=== PATIENT | female | born 1980 | race Caucasian/White ===

== ENCOUNTER → 2016-08-11 | Outpatient (CLI) | payer OTHER ==
--- NOTE | 2016-08-11 15:25 | REP ---
ULTRASOUND RIGHT BREAST: CLINICAL HISTORY: Pimple with bloody discharge and tenderness. Real-time sonographic evaluation of the right retroareolar region is performed including at the 10-o'clock position to 11-o'clock position where there is tenderness. Dense fibroglandular tissue is seen. No cystis or solid nodule is seen. IMPRESSION: No cystic or solid nodule in the right retroareolar region and in the region of tenderness at the 10-o'clock position to 11-o'clock position. Clinical correlation and followup recommended. ACR 2 benign. Signed by Silverio Okeefe MD 08/12/2016 04:45 P
== END ==
LOC: M RAD 12:57
PROVIDERS: ATTEND Family Medicine
DX: N64.52 Nipple discharge (principal)

== ENCOUNTER 2017-01-17 10:08 | Emergency (ER) | payer OTHER ==
[~2017-01-17] VITALS: Ht 167.6 cm; Wt 90.1 kg
[2017-01-17] MEDS ORDERED: SING10TA32 PO (10:31)
[2017-01-17] MEDS ORDERED: CLON0.5T PO (10:31)
[2017-01-17] MEDS ORDERED: ZOLO50TA PO (10:31)
[2017-01-17] MEDS ORDERED: PROAAER10 INH (10:31)
[2017-01-17] MEDS ORDERED: ALBU83IN INH (10:31)
[2017-01-17] MEDS ORDERED: ONDANSETRON 4MG/2ML VIAL (J2405) IV ONE (11:00)
[2017-01-17] MEDS ORDERED: NS 1,000 ML IV ONE (11:00)
[2017-01-17] MEDS ORDERED: MORPHINE 2 MG/ML 1ML SYRINGE IV ONE (11:00)
[2017-01-17 11:18] LABS: BASO % 0.2 % (0.0-1.0); EOS # 0.1 10^3/uL (0.0-0.50); EOS % 0.4 % (0.0-3.0); IMMATURE GRANULOCYTE % 0.2 % (0-0); LYMPH # 4.3 10^3/uL (1.5-4.5); LYMPH % 33.1 % (24.0-44.0); MEAN CORPUSCULAR VOLUME 84.9 fl (80.0-96.0); MONO # 0.5 10^3/uL (0.0-0.8); MONO % 3.8 % (0.0-5.0); NEUTROPHILS # 8.1 10^3/uL (1.8-7.7); NEUTROPHILS % 62.3 % (36.0-66.0); PLATELET COUNT, AUTOMATED 313 10^3/uL (150-450); RED CELL DISTRIBUTION WIDTH 13.2 % (11.5-14.5); WHITE BLOOD COUNT 12.9 10^3/uL (4.0-10.0)
[2017-01-17 11:19] LABS: ADD MANUAL DIFFER NO; DIFF SLIDE NUMBER 177
[2017-01-17 11:53] LABS: ALBUMIN 3.8 GM/DL (3.2-5.2); ALBUMIN/GLOBULIN RATIO 0.81 (1.00-1.93); ALKALINE PHOSPHATASE 149 U/L (45-117); ALT/SGPT 32 U/L (12-78); ANION GAP 9 MEQ/L (8-16); AST/SGOT 20 U/L (15-37); BILIRUBIN,DIRECT < 0.1 MG/DL (0.0-0.2); BILIRUBIN,TOTAL 0.2 MG/DL (0.2-1.0); BLOOD UREA NITROGEN 8 MG/DL (7-18); CALCIUM LEVEL 9.1 MG/DL (8.5-10.1); CARBON DIOXIDE LEVEL 25 MEQ/L (21-32); CHLORIDE LEVEL 107 MEQ/L (98-107); CREATININE FOR GFR 0.82 MG/DL (0.55-1.02); GLOMERULAR FILTRATION RATE > 60.0 (>60); GLUCOSE, FASTING 110 MG/DL (70-105); POTASSIUM SERUM 3.6 MEQ/L (3.5-5.1); SODIUM LEVEL 141 MEQ/L (136-145); TOTAL PROTEIN 8.5 GM/DL (6.4-8.2)
[2017-01-17 12:26] LABS: CONTROL LINE UCG INT CTR LINE PRESENT
[2017-01-17] MEDS ORDERED: ISOVUE-370 76% 100ML VIAL (Q9967) As Ordered ONE (12:35)
--- NOTE | 2017-01-17 13:03 | REP ---
CT of the abdomen and pelvis with IV contrast, without bowel contrast: The appendix has a normal appearance. There are surgical clips in the gallbladder fossa. There is a 2.7 cm left adnexal cyst. The uterus and right adnexa are unremarkable. The bladder is unremarkable. There is no free fluid in the pelvis. The visualized lung morrison are unremarkable. The hepatic parenchyma, pancreas, spleen, adrenals, kidneys and abdominal aorta are unremarkable. There is no hydronephrosis. No bowel distension or obstruction. Impression: 2.7 cm left adnexal cyst. Right adnexa is unremarkable. The appendix has a normal appearance. There is a cholecystectomy. The bladder is unremarkable. There is no bowel obstruction. No ascites or adenopathy. Signed by Silverio Bush MD 01/17/2017 12:55 P
[2017-01-17 13:19] VITALS: BP 116/74
[2017-01-18] MEDS ORDERED: IBUP-1114 PO (21:09)
== END 2017-01-17 13:20 | disposition home or self-care (01) ==
LOC: M ED 10:08
DX: R10.31 Right lower quadrant pain (principal); R19.7 Diarrhea, unspecified; Z79.899 Other long term (current) drug therapy
CPT/HCPCS: 74177; 80048; 80076; 81001; 83690; 84703; 85025; 96361; 96374; 96375; 99283; J2405; Q9967

== ENCOUNTER 2017-01-18 20:48 | Emergency (ER) | payer OTHER ==
[~2017-01-18] VITALS: Ht 165.1 cm; Wt 87.3 kg
[~2017-01-18 20:48] MED LIST: ALBU83IN INH; CLON0.5T PO; PROAAER10 INH; SING10TA32 PO; ZOLO50TA PO
[2017-01-18] MEDS ORDERED: IBUP-1114 PO (21:09)
[2017-01-19] MEDS ORDERED: NS 1,000 ML IV ONE (00:15)
[2017-01-19] MEDS ORDERED: ONDANSETRON 4MG/2ML VIAL (J2405) IV ONE (00:15)
[2017-01-19] MEDS ORDERED: MORPHINE 4 MG/ML 1ML SYRINGE IV PRN (00:15)
[2017-01-19 00:52] LABS: MEAN CORPUSCULAR HEMOGLOBIN 28.5 pg (27.0-33.0); MEAN CORPUSCULAR HGB CONC 33.1 g/dl (32.0-36.5); MEAN CORPUSCULAR VOLUME 86.1 fl (80.0-96.0); PLATELET COUNT, AUTOMATED 281 10^3/uL (150-450); RED CELL DISTRIBUTION WIDTH 13.2 % (11.5-14.5)
[2017-01-19 01:18] LABS: ADD MANUAL DIFFER YES; DIFF SLIDE NUMBER 91
[2017-01-19 01:21] LABS: ALBUMIN 3.7 GM/DL (3.2-5.2); ALBUMIN/GLOBULIN RATIO 0.95 (1.00-1.93); ALKALINE PHOSPHATASE 137 U/L (45-117); ALT/SGPT 26 U/L (12-78); AMYLASE 53 U/L (25-115); ANION GAP 6 MEQ/L (8-16); AST/SGOT 11 U/L (15-37); BILIRUBIN,DIRECT < 0.1 MG/DL (0.0-0.2); BILIRUBIN,TOTAL 0.3 MG/DL (0.2-1.0); BLOOD UREA NITROGEN 8 MG/DL (7-18); CALCIUM LEVEL 8.7 MG/DL (8.5-10.1); CARBON DIOXIDE LEVEL 28 MEQ/L (21-32); CHLORIDE LEVEL 109 MEQ/L (98-107); CREATININE FOR GFR 0.76 MG/DL (0.55-1.02); GLOMERULAR FILTRATION RATE > 60.0 (>60); GLUCOSE, FASTING 80 MG/DL (70-105); POTASSIUM SERUM 3.8 MEQ/L (3.5-5.1); SODIUM LEVEL 143 MEQ/L (136-145); TOTAL PROTEIN 7.6 GM/DL (6.4-8.2)
[2017-01-19 01:33] LABS: EOSINOPHILS 1 % (0-5)
[2017-01-19] MEDS ORDERED: ZOFR4TAB3 PO (01:53)
[2017-01-19] MEDS ORDERED: BENT20TA PO (01:53)
[2017-01-19 02:01] VITALS: BP 136/86
== END 2017-01-19 02:04 | disposition home or self-care (01) ==
LOC: M ED 20:48
DX: R10.9 Unspecified abdominal pain (principal); R19.7 Diarrhea, unspecified; J45.909 Unspecified asthma, uncomplicated; F41.9 Anxiety disorder, unspecified; F33.9 Major depressive disorder, recurrent, unspecified; Z79.899 Other long term (current) drug therapy; Z88.5 Allergy status to narcotic agent; Z87.42 Personal history of other diseases of the female genital tract
CPT/HCPCS: 80048; 80076; 81001; 82150; 83690; 85025; 96374; 96375; 99283; J2405

== ENCOUNTER → 2017-01-19 | Outpatient (REF) | payer OTHER ==
[~2017-01-19] MED LIST changes: +BENT20TA PO; +IBUP-1114 PO; +KETO10TAB PO; +ZOFR4TAB3 PO
== END ==
LOC: M LAB REF 13:13
PROVIDERS: ATTEND Physician Assistant Medical
DX: R19.7 Diarrhea, unspecified (principal)

== ENCOUNTER 2017-01-21 15:58 | Emergency (ER) | payer OTHER ==
[~2017-01-21] VITALS: Ht 165.1 cm; Wt 40.1 kg
[~2017-01-21 15:58] MED LIST changes: -KETO10TAB PO
[2017-01-21] MEDS ORDERED: ONDANSETRON 4MG/2ML VIAL (J2405) IV ONE (18:30)
[2017-01-21] MEDS ORDERED: KETOROLAC 30 MG/ML VIAL (J1885) IV ONE (18:30)
[2017-01-21 18:50] LABS: MEAN CORPUSCULAR HEMOGLOBIN 28.4 pg (27.0-33.0); MEAN CORPUSCULAR HGB CONC 33.2 g/dl (32.0-36.5); MEAN CORPUSCULAR VOLUME 85.5 fl (80.0-96.0); PLATELET COUNT, AUTOMATED 290 10^3/uL (150-450); RED CELL DISTRIBUTION WIDTH 13.2 % (11.5-14.5); WHITE BLOOD COUNT 10.8 10^3/uL (4.0-10.0)
[2017-01-21 18:52] LABS: CONTROL LINE UCG INT CTR LINE PRESENT
[2017-01-21 18:57] LABS: ADD MANUAL DIFFER YES; DIFF SLIDE NUMBER 305
[2017-01-21 19:18] LABS: ALBUMIN 3.9 GM/DL (3.2-5.2); ALBUMIN/GLOBULIN RATIO 1.03 (1.00-1.93); ALKALINE PHOSPHATASE 134 U/L (45-117); ALT/SGPT 32 U/L (12-78); AMYLASE 49 U/L (25-115); ANION GAP 9 MEQ/L (8-16); AST/SGOT 17 U/L (15-37); BILIRUBIN,DIRECT < 0.1 MG/DL (0.0-0.2); BILIRUBIN,TOTAL 0.3 MG/DL (0.2-1.0); BLOOD UREA NITROGEN 8 MG/DL (7-18); CALCIUM LEVEL 8.8 MG/DL (8.5-10.1); CARBON DIOXIDE LEVEL 24 MEQ/L (21-32); CHLORIDE LEVEL 109 MEQ/L (98-107); CREATININE FOR GFR 0.67 MG/DL (0.55-1.02); GLOMERULAR FILTRATION RATE > 60.0 (>60); GLUCOSE, FASTING 73 MG/DL (70-105); POTASSIUM SERUM 3.9 MEQ/L (3.5-5.1); SODIUM LEVEL 142 MEQ/L (136-145); TOTAL PROTEIN 7.7 GM/DL (6.4-8.2)
--- NOTE | 2017-01-21 19:20 | REPUSA ---
Clinical history: Pain. Findings: Real-time transabdominal and transvaginal ultrasound images of the pelvis were obtained. An anteverted uterus is noted, measuring 7.3 x 3.3 x 3.5 cm. The uterus demonstrates normal echotexture and echogenicity. The endometrial stripe measures 7 mm and is within normal limits. The right ovary measures 1.4 x 1.7 x 2.6 cm. There is a simple right ovarian cyst measuring 1.6 x 1.6 x 1.8 cm. The l eft ovary measures 3.3 x 1.7 x 2.9 cm. No adnexal masses are seen. Color Doppler flow is seen within both ovaries. There is no evidence of free fluid. Impression: Unremarkable ultrasound examination of the pelvis. Small simple right ovarian cyst.
[2017-01-21] MEDS ORDERED: KETO10TAB PO (19:44)
[2017-01-21 19:54] VITALS: BP 135/83
[2017-01-21 20:29] LABS: ERYTHROCYTE SEDIMENTATION RATE 29 mm/hr (0-20)
== END 2017-01-21 19:55 | disposition home or self-care (01) ==
LOC: EDBD 15:58 → M ED 15:58
DX: N83.201 Unspecified ovarian cyst, right side (principal); R11.10 Vomiting, unspecified; R19.7 Diarrhea, unspecified; J45.909 Unspecified asthma, uncomplicated; F41.9 Anxiety disorder, unspecified; F33.9 Major depressive disorder, recurrent, unspecified; D25.1 Intramural leiomyoma of uterus; Z79.899 Other long term (current) drug therapy; Z88.5 Allergy status to narcotic agent

== ENCOUNTER 2017-04-04 17:49 | Emergency (ER) | payer OTHER ==
[~2017-04-04] VITALS: Ht 165.1 cm; Wt 86.4 kg
[~2017-04-04 17:49] MED LIST changes: +KETO10TAB PO
--- NOTE | 2017-04-04 18:49 | REP ---
Right ankle series: Four views. History: Injury in a fall. Findings: Four views of the right ankle demonstrate an accessory ossicle adjacent to the lateral malleolus. There is minimal medial malleolar spurring. Achilles and plantar calcaneal spurring is noted. There is lateral soft tissue swelling. No fracture is seen. Impression: No fracture noted. Old accessory ossicle adjacent to the distal fibula. Heel spurs. Signed by Al Dickson MD 04/04/2017 09:43 P
[2017-04-04] MEDS ORDERED: IBUP-1022 PO (19:30)
[2017-04-04 19:58] VITALS: BP 148/89
== END 2017-04-04 20:12 | disposition home or self-care (01) ==
LOC: M ED 19:49
DX: S93.401A Sprain of unspecified ligament of right ankle, initial encounter (principal); X50.1XXA Overexertion from prolonged static or awkward postures, initial encounter; Y92.89 Other specified places as the place of occurrence of the external cause; Y93.01 Activity, walking, marching and hiking; Y99.0 Civilian activity done for income or pay

== ENCOUNTER → 2017-09-08 | Outpatient (CLI) | payer OTHER ==
[~2017-09-08] MED LIST changes: -ALBU83IN INH; -BENT20TA PO; -CLON0.5T PO; -IBUP-1114 PO; +ISOVUE-370 76% 100ML VIAL (Q9967) As Ordered; -KETO10TAB PO; -PROAAER10 INH; -SING10TA32 PO; -ZOFR4TAB3 PO; -ZOLO50TA PO
== END ==
LOC: M RADPRO 11:04
DX: N97.1 Female infertility of tubal origin (principal)
CPT/HCPCS: 58340

== ENCOUNTER 2018-03-05 14:05 | Emergency (ER) | payer OTHER ==
[2018-03-05 15:13] LABS: BASO % 0.2 % (0.0-1.0); EOS # 0.1 10^3/uL (0.0-0.50); EOS % 0.6 % (0.0-3.0); HEMOGLOBIN 11.3 g/dl (12.0-15.5); IMMATURE GRANULOCYTE % 0.4 % (0-3.0); LYMPH # 3.5 10^3/uL (1.5-4.5); LYMPH % 26.5 % (24.0-44.0); MEAN CORPUSCULAR HEMOGLOBIN 28.4 pg (27.0-33.0); MEAN CORPUSCULAR HGB CONC 33.2 g/dl (32.0-36.5); MEAN CORPUSCULAR VOLUME 85.4 fl (80.0-96.0); MONO # 0.6 10^3/uL (0.0-0.8); MONO % 4.4 % (0.0-5.0); NEUTROPHILS % 67.9 % (36.0-66.0); PLATELET COUNT, AUTOMATED 270 10^3/uL (150-450); RED BLOOD COUNT 3.98 10^6/uL (4.00-5.40); RED CELL DISTRIBUTION WIDTH 12.6 % (11.5-14.5); WHITE BLOOD COUNT 13.2 10^3/uL (4.0-10.0)
[2018-03-05] MEDS: ONDANSETRON 4MG/2ML VIAL (J2405) IV ×2 (15:24→16:21)
[2018-03-05] MEDS: NS 1,000 ML IV (15:26)
[2018-03-05 15:30] LABS: ALBUMIN 3.1 GM/DL (3.2-5.2); ALBUMIN/GLOBULIN RATIO 0.82 (1.00-1.93); ALKALINE PHOSPHATASE 119 U/L (45-117); ALT/SGPT 21 U/L (12-78); ANION GAP 10 MEQ/L (8-16); AST/SGOT 13 U/L (7-37); BILIRUBIN,DIRECT < 0.1 MG/DL (0.0-0.2); BILIRUBIN,TOTAL 0.3 MG/DL (0.2-1.0); BLOOD UREA NITROGEN 5 MG/DL (7-18); CALCIUM LEVEL 8.9 MG/DL (8.5-10.1); CARBON DIOXIDE LEVEL 23 MEQ/L (21-32); CHLORIDE LEVEL 107 MEQ/L (98-107); CREATININE FOR GFR 0.51 MG/DL (0.55-1.30); GLOMERULAR FILTRATION RATE > 60.0 (>60); GLUCOSE, FASTING 74 MG/DL (70-100); LIPASE 121 U/L (73-393); POTASSIUM SERUM 3.7 MEQ/L (3.5-5.1); SODIUM LEVEL 140 MEQ/L (136-145); TOTAL PROTEIN 6.9 GM/DL (6.4-8.2)
[2018-03-05 15:35] LABS: INFLUENZA A AMPLIFICATION NEGATIVE (NEGATIVE); INFLUENZA B AMPLIFICATION NEGATIVE (NEGATIVE)
[2018-03-05 15:50] LABS: KETONE, URINE AUTO RFX 1+ mg/dL (NEGATIVE); LEUKOCYTE ESTERASE UR AUTO RFX NEGATIVE (NEGATIVE); MUCUS, URINE RFX SMALL (NEGATIVE); NITRITE, URINE AUTO RFX NEGATIVE (NEGATIVE); RBC, URINE AUTO RFX 1 /HPF (0-3); SPECIFIC GRAVITY UR AUTO RFX 1.013 (1.002-1.035); SQUAM EPITHELIAL CELL UR AURFX 0 /HPF (0-6); WBC, URINE AUTO RFX 2 /HPF (0-3)
== END 2018-03-05 17:50 | disposition home or self-care (01) ==
LOC: M ED 14:05
DX: O21.9 Vomiting of pregnancy, unspecified (principal); O99.89 Other specified diseases and conditions complicating pregnancy, childbirth and the puerperium; R52 Pain, unspecified; O99.512 Diseases of the respiratory system complicating pregnancy, second trimester; J45.909 Unspecified asthma, uncomplicated; Z79.899 Other long term (current) drug therapy; Z88.5 Allergy status to narcotic agent; Z3A.14 14 weeks gestation of pregnancy
CPT/HCPCS: J2405

== ENCOUNTER 2018-05-15 13:37 | Outpatient (CLI) | payer OTHER ==
[~2018-05-15] VITALS: Ht 165.1 cm; Wt 99.7 kg
[~2018-05-15 13:37] MED LIST changes: +ACET500T15 PO; +ALBU83IN INH; +BENT20TA PO; +CLON0.5T8 PO; +IBUP-1022 PO; +IBUP-1114 PO; -ISOVUE-370 76% 100ML VIAL (Q9967) As Ordered; +KETO10TAB PO; +PRENTAB55 PO; +PROAAER10 INH; +SING10TA32 PO; +ZOFR4TAB14 PO; +ZOLO50TA PO
[2018-05-15 14:02] VITALS: BP 124/73
[2018-05-15 15:03] VITALS: BP 119/71
== END 2018-05-15 15:38 | disposition home or self-care (01) ==
LOC: M LDO 13:37
PROVIDERS: ATTEND Obstetrics & Gynecology
DX: O26.892 Other specified pregnancy related conditions, second trimester (principal); Z3A.24 24 weeks gestation of pregnancy; R10.9 Unspecified abdominal pain; E86.0 Dehydration; O99.282 Endocrine, nutritional and metabolic diseases complicating pregnancy, second trimester
CPT/HCPCS: G0378; G0463

== ENCOUNTER 2018-08-14 08:41 | Inpatient (IN) | payer OTHER ==
[~2018-08-14] VITALS: Ht 165.1 cm; Wt 104.8 kg
[~2018-08-14 08:41] MED LIST changes: +BICITRA 30ML SOLN UDC PO ONE; +DHA100CA PO; +LR 1,000 ML IV ONE; +LR 1,000 ML IV SCH; +ZOLO25TA PO
[2018-08-14] MEDS: PRENATAL VITAMINS CHEWABLE TABLET PO SCH (09:00)
[2018-08-14 09:14] VITALS: BP 121/69
[2018-08-14] MEDS ORDERED: LR 1,000 ML IV ONE (09:15)
[2018-08-14] MEDS ORDERED: BICITRA 30ML SOLN UDC PO ONE (09:15)
[2018-08-14] MEDS ORDERED: ZOLOFT PO (09:20)
[2018-08-14] MEDS ORDERED: CLAR5TAB11 PO (09:20)
[2018-08-14 09:54] LABS: HEMATOCRIT 33.5 % (36.0-47.0); HEMOGLOBIN 10.9 g/dl (12.0-15.5); MEAN CORPUSCULAR HEMOGLOBIN 27.7 pg (27.0-33.0); MEAN CORPUSCULAR HGB CONC 32.5 g/dl (32.0-36.5); MEAN CORPUSCULAR VOLUME 85.2 fl (80.0-96.0); PLATELET COUNT, AUTOMATED 254 10^3/uL (150-450); RED BLOOD COUNT 3.93 10^6/uL (4.00-5.40)
[2018-08-14] MEDS ORDERED: ONDANSETRON 4MG/2ML VIAL (J2405) As Ordered ONE (11:52)
[2018-08-14] MEDS ORDERED: fentaNYL 100 MCG/2 ML INJECTION (J3010) As Ordered ONE (11:52)
[2018-08-14] MEDS ORDERED: MORPHINE PRES-FREE INJ 10 MG/10 ML VIAL (J2274) As Ordered ONE (11:52)
[2018-08-14] MEDS ORDERED: OXYTOCIN INJ 10 UNITS/ML VIAL (J2590) As Ordered ONE (11:52)
[2018-08-14] MEDS ORDERED: dexameTHASONE 4 MG/ML 1ML VIAL (J1100) As Ordered ONE (11:52)
[2018-08-14] MEDS ORDERED: NALBUPHINE HCL 10 MG/ML AMP (J2300) IV PRN ×2 (11:59→13:45)
[2018-08-14] MEDS ORDERED: METOCLOPRAMIDE INJ 10MG/2ML VIAL (J2765) IV PRN (11:59)
[2018-08-14] MEDS ORDERED: NALOXONE INJ 0.4 MG/1 ML VIAL (J2310) IV PRN ×2 (11:59)
[2018-08-14] MEDS ORDERED: ONDANSETRON 4MG/2ML VIAL (J2405) IV PRN ×3 (11:59→14:00)
[2018-08-14] MEDS ORDERED: KETOROLAC 60 MG/2 ML VIAL (J1885) As Ordered ONE (12:30)
[2018-08-14] MEDS ORDERED: PHENYLephrine HCL 500 MCG/5 ML (100MCG/ML) SYRINGE (J2370) As Ordered ONE (12:30)
[2018-08-14] MEDS ORDERED: MEPERIDINE INJ 25 MG/ML VIAL (J2175) IV PRN (13:45)
[2018-08-14] MEDS ORDERED: fentaNYL 100 MCG/2 ML INJECTION (J3010) IV PRN (13:45)
[2018-08-14] MEDS ORDERED: OXYTOCIN DRIP 30 UNITS in APPROPRIATE DILUENT 1 EA IV SCH (14:00)
[2018-08-14] MEDS ORDERED: RHOGAM 300 MCG (1500 IU) INJ (J2790) IM SCH (14:00)
[2018-08-14] MEDS ORDERED: MEASLES,MUMPS,RUBELLA VACCINE INJ (MMR-II) (90707) SC SCH (14:00)
[2018-08-14] MEDS ORDERED: PERCOCET 5MG/325MG TAB PO PRN (14:00)
[2018-08-14] MEDS: LR 1,000 ML IV SCH ×2 (14:37→22:25)
[2018-08-14 14:55] VITALS: BP 144/68
[2018-08-14 15:25] VITALS: BP 130/70
[2018-08-14 16:25] VITALS: BP 116/63
[2018-08-14] MEDS ORDERED: ALBUTEROL 90 MCG/ACT 8GM HFA INHALER INH PRN (16:45)
[2018-08-14 17:42] VITALS: BP 119/65
[2018-08-14] MEDS: diphenhydrAMINE INJ 50MG/ML VIAL (J1200) IV PRN (18:57)
[2018-08-14] MEDS: DOCUSATE SODIUM 100 MG CAP PO SCH (20:03)
[2018-08-14] MEDS: KETOROLAC 30 MG/ML VIAL (J1885) IV SCH (20:04)
[2018-08-14] MEDS: MONTELUKAST 10 MG TAB PO SCH (20:36)
[2018-08-14] MEDS: SERTRALINE HCL 25 MG TABLET PO SCH (20:36)
[2018-08-14 22:00] VITALS: BP 123/58
[2018-08-15] VITALS (7 sets, daily range): BP systolic 110–133; BP diastolic 59–74
[2018-08-15] MEDS: KETOROLAC 30 MG/ML VIAL (J1885) IV SCH ×2 (01:37→08:06)
[2018-08-15] MEDS: diphenhydrAMINE INJ 50MG/ML VIAL (J1200) IV PRN (01:46)
[2018-08-15] MEDS: LR 1,000 ML IV SCH ×3 (06:00→22:00)
[2018-08-15 07:24] LABS: HEMATOCRIT 25.1 % (36.0-47.0); MEAN CORPUSCULAR HEMOGLOBIN 27.3 pg (27.0-33.0); MEAN CORPUSCULAR HGB CONC 31.9 g/dl (32.0-36.5); MEAN CORPUSCULAR VOLUME 85.7 fl (80.0-96.0); PLATELET COUNT, AUTOMATED 198 10^3/uL (150-450); RED BLOOD COUNT 2.93 10^6/uL (4.00-5.40); WHITE BLOOD COUNT 14.6 10^3/uL (4.0-10.0)
[2018-08-15] MEDS: PRENATAL VITAMINS CHEWABLE TABLET PO SCH (08:06)
[2018-08-15] MEDS: DOCUSATE SODIUM 100 MG CAP PO SCH ×2 (08:06→20:20)
--- NOTE | 2018-08-15 08:41 | IPNPDOC ---
Progress Note Date of Service: Aug 15, 2018 Day#: 1 Progress Note PP/POD 1 SUBJECT: Katya is a 38yo [id number] s/p uncomplicated PLTCS on 08/14/18 for hx of myomectomy, doing well /post-op day # 1. She has been ambulating, gray in place draining clear yellow urine, and tolerating regular diet. Breast feeding without issue. Reports lochia is minimal. No f/c/n/v/CP/SOB. No lig htheadedness/dizziness. OBJECTIVE: VITAL SIGNS: Within normal limits, afebrile. Alert and oriented times three. Abdomen: Fundus firm at U-2. Soft, appropriately TTP with no rebound/guarding. Bandage removed, pfannensteil incision clean/dry/intact with steri strips overlying. No erythema/induration/drainage. Labs: pre-op H/H: 10.9/33.5 post-op H/H: 8/25.1 ASSESSMENT: Katya is a 38yo [id number] s/p uncomplicated PLTCS on 08/14/18 for hx of myomectomy, doing well /post-op day # 1. Vitals within normal limits, afebrile, hemodynamically stable with no evidence of infection. PLAN: 1. Routine /post-op care 2. Percocet and toradol (then motrin) for pain 3. Encourage breast feeding and ambulation, use of IS. Ok to shower. 4. Regular diet 5. Gray out this morning with 6hr due to void 6. Saline nasal rinse for congestion 7. Anticipate discharge tomorrow if meeting all milestones Dr. Arleen Murphy MD VS, I&O, [facility] Vital Signs/I&O Vital Signs Date Time Temp Pulse Resp B/P (MAP) Pulse Ox O2 Delivery O2 Flow Rate FiO2 08/15/18 06:00 97.8 82 17 112/59 (76) 08/14/18 17:42 97 I&O- Last 24 Hours up to 6 AM 08/15/18 06:00 Intake Total 1600 ml Output Total 1960 ml Balance -360 ml Laboratory Data 24H LABS Laboratory Tests 2 08/14/18 09:33: Nucleated Red Blood Cells % (auto) 0.0, Syphilis Serology NONREACTIVE 08/15/18 06:48: Nucleated Red Blood Cells % (auto) 0.0 CBC/BMP Laboratory Tests 08/14/18 09:33 Red Blood Count 3.93 L, Mean Corpuscular Volume 85.2, Mean Corpuscular Hemoglobin 27.7, Mean Corpuscular Hemoglobin Concent 32.5, Red Cell Distribution Width 15.9 H 08/15/18 06:48 Red Blood Count 2.93 L, Mean Corpuscular Volume 85.7, Mean Corpuscular Hemoglobin 27.3, Mean Corpuscular Hemoglobin Concent 31.9 L, Red Cell Distribution Width 16.1 H Arleen Murphy MD Aug 15, 2018 08:41
[2018-08-15] MEDS ORDERED: SODIUM CHLORIDE NASAL 0.65% SPRAY BTL (OCEAN) PRN (08:45)
--- NOTE | 2018-08-15 15:31 | RO ---
DATE OF PROCEDURE: 08/14/2018 CLINICAL SERVICE: Obstetrics INDICATION FOR OPERATION: Katya is a 38-year-old G1 now P1-0-0-1 who had a myomectomy performed when she was a teenager and she was told that it was an extensive myomectomy and she possibly might not ever achieve a in the future. So given these facts, I recommended primary low transverse section as mode of delivery at 37 weeks. PREPROCEDURE DIAGNOSIS: 37 weeks, single intrauterine with history of prior myomectomy. POSTPROCEDURE DIAGNOSIS: 37 weeks, single intrauterine with history of prior myomectomy. OPERATIVE PROCEDURE: Primary low transverse section. SURGEON: Arleen Murphy MD GRANULATOR: Peter Wang MD ANESTHESIA: spinal MATERIAL FORWARDED TO THE LAB FOR EXAMINATION: None. DESCRIPTION OF FINDINGS: Female infant in cephalic presentation. Apgars 8 and 9. Weight 3170 grams or 7 pounds 0 ounces. She had an approximately 4 cm very nodular calcified fibroid on the posterior fundal aspect of the uterus and another very small subcentimeter fibroid on the posterior aspect of the uterus. Other than that, the uterus was normal in appearance with the exception of the prior myomectomy scar noted on the right fundal aspect of the uterus. Fallopian tubes and ovaries were normal in appearance. INFECTION CLASSIFICATION: II. ESTIMATED BLOOD LOSS: 500 mL IV FLUIDS: 2100 mL of lactated Ringers URINE OUTPUT: 175 mL of clear yellow urine DESCRIPTION OF OPERATION After obtaining informed consent, Katya was taken to the operating room. She had a reassuring FHRT prior. She received spinal anesthesia and Perera catheter and bilateral sequential compression devices were placed. She also received 2 grams of IV Ancef prophylactically. She was prepped and draped in a normal sterile fashion in the dorsal supine position with a left lateral tilt. Time-out was performed to confirm patient name, date of , procedure and indication. The team was all in agreement. Spinal anesthesia was found to be adequate using an Allis clamp. Pfannenstiel skin incision was made with a scalpel and carried through to the underlying layer of fascia. Fascia was incised in the midline and the incision was extended laterally with Weiner scissors. Superior and inferior aspects of the fascial incision were grasped with Johnnie clamps, elevated and the underlying rectus muscles were dissected off bluntly and sharply. Peritoneum was entered digitally and the rectus muscles were in the midline. The peritoneal incision was extended superiorly and inferiorly with good visualization of the bladder. Bladder blade was inserted and the vesicouterine peritoneum was identified, grasped with pickups and entered sharply with the Metzenbaum scissors. The incision was extended laterally and the bladder flap was created digitally. Bladder blade was reinserted and the lower uterine segment was scored in a transverse fashion with a scalpel. Uterus was entered bluntly and the incision was extended with traction. Bladder blade was removed and the 's head was elevated to the level of the incision with assistance of a vacuum device. The head was in occiput transverse positioning. Fundal pressure was applied and the head was delivered atraumatically. Anterior shoulder, posterior shoulder and corpus were delivered without difficulty. Nose and mouth were suctioned with bulb suction and cord was clamped times two and cut. The infant was handed off to the awaiting nursing team. Placenta was removed with traction on the umbilical cord and uterine massage and the uterus was exteriorized and cleared of all clot and debris. The uterine incision was repaired with #0 Vicryl suture in a running locking fashion and a second layer of #0-Monocryl was used to close the hysterotomy incision in an imbricating fashion. Uterine incision was inspected and hemostasis was noted after two further [id number] were applied using #0 Vicryl suture. Posterior cul-de-sac was irrigated and uterus was returned to the abdomen after noting the fibroids as mentioned in findings. The gutters were observed to have no clots. Hemostasis was noted. Peritoneum was closed using #3-0 Vicryl suture in a running fashion. Rectus muscles were reobserved and there was no bleeding. Fascia was reapproximated with #0 Vicryl suture in a running fashion. Subcutaneous tissue was copiously irrigated. Gio's fascia was reapproximated using #3-0 Vicryl suture in a running fashion for the first layer and then a second layer of three [id number] were placed using #0 Vicryl suture again in the subcutaneous tissue, given the depth of the tissue and then finally the skin edges were reapproximated using three inverted interrupted stitches using #3-0 Vicryl suture followed by a running subcuticular stitch using #4-0 Monocryl. Skin incision was cleaned using wet lap, dried with a dry lap. Steri-Strips were applied in the usual fashion perpendicular to the Pfannenstiel incision. Two strips of Telfa were layered on top of the Steri-Strips followed by a dry sterile towel. Surgical drapes removed. Sterile towel was removed. Pressure dressing was applied over the entire surgical incision. Vagina was cleared of all blood clot without active bleeding noted. Fundus was firm at U minus 1 cm. All counts were correct times two. The procedure was without complications and the patient tolerated the procedure well. She was taken to the recovery room on labor and delivery in stable condition. MARGARET
[2018-08-15] MEDS: IBUPROFEN 800 MG TAB PO SCH (15:37)
[2018-08-15] MEDS: PERCOCET 5MG/325MG TAB PO PRN ×2 (15:37→20:21)
[2018-08-15] MEDS: MONTELUKAST 10 MG TAB PO SCH (20:21)
[2018-08-15] MEDS: SERTRALINE HCL 25 MG TABLET PO SCH (20:22)
[2018-08-16] MEDS: IBUPROFEN 800 MG TAB PO SCH ×3 (01:46→16:03)
[2018-08-16 01:50] VITALS: BP 129/77
[2018-08-16] MEDS: LR 1,000 ML IV SCH (03:44)
[2018-08-16 06:03] VITALS: BP 128/62
[2018-08-16] MEDS: PERCOCET 5MG/325MG TAB PO PRN (06:06)
--- NOTE | 2018-08-16 09:14 | IPNPDOC ---
Progress Note Date of Service: August 16, 2018 Day#: 2 Progress Note PP/POD 2 SUBJECT: Katya is a 38yo [id number] s/p uncomplicated PLTCS on 08/14/18 for hx of myomectomy, doing well /post-op day # 2. She has been ambulating, voiding spontaneously without issue and tolerating regular diet. Breast feeding without issue. Reports lochia is minimal. No f/c/n/v/CP/SOB. No lightheadedness/dizziness. Pain well controlled with medications. OBJECTIVE: VITAL SIGNS: Within normal limits, afebrile. Alert and oriented times three. Abdomen: Fundus firm at U-2. Soft, appropriately TTP with no rebound/guarding. Pfannensteil incision clean/dry/intact with steri strips overlying. No erythema/induration/drainage. Extremities: 1+ bilateral pedal edema, no pain with palpation of calves Labs: pre-op H/H: 10.9/33.5 post-op H/H: 8/25.1 ASSESSMENT: Katya is a 38yo [id number] s/p uncomplicated PLTCS on 08/14/18 for hx of myomectomy, doing well /post-op day # 2. Vitals within normal limits, afebrile, hemodynamically stable with no evidence of infection. PLAN: 1. Discharge to home today 2. Has home meds already: percocet, motrin, colace 3. Encourage breast feeding 4. Regular diet 5. Return precautions discussed at length for heavy vaginal bleeding, increasing abdominal pain, signs of wound infection such as redness/pus/drainage, fevers/chills, vomiting, or any other concerns 6. Vaginal rest 6 weeks, no heavy lifting greater than weight of baby 7. Incision check in clinic scheduled in [address] Arleen Murphy MD VS, I&O, 24H, Fishbone Vital Signs/I&O Vital Signs Date Time Temp Pulse Resp B/P (MAP) Pulse Ox O2 Delivery O2 Flow Rate FiO2 08/16/18 06:39 20 08/16/18 06:03 98.5 97 128/62 (84) 08/15/18 21:58 99 I&O- Last 24 Hours up to 6 AM 08/16/18 06:00 Intake Total 320 ml Output Total 1350 ml Balance -1030 ml Arleen Murphy MD August 16, 2018 09:13
--- NOTE | 2018-08-16 09:25 | DS.PDOC ---
Discharge Summary General Date of Admission Aug 14, 2018 at 08:41 Date of Discharge August 16, 2018 Attending Physician: Arleen Murphy MD Discharge Summary PROCEDURES PERFORMED DURING STAY: primary low transverse section ADMITTING DIAGNOSES: 1. Term SIUP, history of prior myomectomy with plan for primary section DISCHARGE DIAGNOSES: 1. Term SIUP, history of prior myomectomy with plan for primary section COMPLICATIONS/CHIEF COMPLAINT: History Of Myomectomy. HISTORY OF PRESENT ILLNESS/HOSPITAL COURSE: Katya is a 38yo [id number] s/p uncomplicated PLTCS on 08/14/18 for hx of myomectomy, doing well /post-op day # 2. She has had a benign /post-op course. At time of discharge, vitals were within normal limits, afebrile, hemodynamically stable with no evidence of infection. DISCHARGE MEDICATIONS: Please see below. ALLERGIES: Please see below. PHYSICAL EXAMINATION ON DISCHARGE: VITAL SIGNS: Within normal limits, afebrile. Alert and oriented times three. Abdomen: Fundus firm at U-2. Soft, appropriately TTP with no rebound/guarding. Pfannensteil incision clean/dry/intact with steri strips overlying. No erythema/induration/drainage. Extremities: 1+ bilateral pedal edema, no pain with palpation of calves LABORATORY DATA: pre-op H/H: 10.9/33.5 post-op H/H: 8/25.1 ACTIVITY: vaginal rest 6 weeks, no heavy lifting DIET: regular DISPOSITION: home DISCHARGE PLAN/INSTRUCTIONS: 1. Discharge to home today 2. Has home meds already: percocet, motrin, colace 3. Encourage breast feeding 4. Regular diet 5. Return precautions discussed at length for heavy vaginal bleeding, increasing abdominal pain, signs of wound infection such as redness/pus/drainage, fevers/chills, vomiting, or any other concerns 6. Vaginal rest 6 weeks, no heavy lifting greater than weight of baby 7. Incision check in clinic scheduled in 2 weeks DISCHARGE CONDITION: Stable TIME SPENT ON DISCHARGE: Greater than [address] Arleen Murphy MD Vital Signs/I&Os Vital Signs Date Time Temp Pulse Resp B/P (MAP) Pulse Ox O2 Delivery O2 Flow Rate FiO2 08/16/18 06:39 20 08/16/18 06:03 98.5 97 128/62 (84) 08/15/18 21:58 99 I&O- Last 24 Hours up to 6 AM 08/16/18 06:00 Intake Total 320 ml Output Total 1350 ml Balance -1030 ml Discharge Medications Scheduled Acetaminophen (Acetaminophen) 500 Mg Tab, 1 TAB PO Q6H for fever, (Reported) Docosahexanoic Acid (Dha) 100 Mg Capsule, 200 MG PO DAILY, (Reported) Loratadine (Claritin) 5 Mg Tab.rapdis, 5 MG PO DAILY for allergy symptoms, (Reported) Montelukast Sodium (Singulair) 10 Mg Tab, 10 MG PO DAILY, (Reported) Nbf036/Iron Fum/Folic/Docusate ( 19 Tablet) 1 Tab Tab, 1 TAB PO DAILY, (Reported) Sertraline Hcl (Zoloft) 25 Mg Tablet, 25 MG PO DAILY, (Reported) [Zoloft ] , MG PO D, (Reported) Scheduled PRN Albuterol Sulf (Albuterol Sulfate) 2.5 Mg/3 Ml Nebu, 2.5 MG INH for SHORTNESS OF BREATH, (Reported) Albuterol Sulfate (Proair Hfa) 108 Mcg/Act Aer, 1 PUFF INH for SHORTNESS OF BREATH, (Reported) Allergies Coded Allergies: codeine (Verified Allergy, Unknown, loss of consciousness, 08/14/18) [facility] PT HAS HAD MORPHINE IN THE PAST Arleen Murphy MD August 16, 2018 09:25
[2018-08-16] MEDS: PRENATAL VITAMINS CHEWABLE TABLET PO SCH (09:55)
[2018-08-16] MEDS: DOCUSATE SODIUM 100 MG CAP PO SCH (09:55)
[2018-08-16] MEDS ORDERED: COLA100C5 PO (15:06)
[2018-08-16] MEDS ORDERED: OXYC1TAB23 PO (15:06)
[2018-08-16] MEDS ORDERED: IBUP-1114 PO (15:06)
== END 2018-08-16 17:00 | disposition home or self-care (01) | DRG 773 ==
LOC: M LDI 08:41 → M OBS 15:15
PROVIDERS: ADMIT Obstetrics & Gynecology; ATTEND Obstetrics & Gynecology
PROC: 10D00Z1 Extraction of Products of Conception, Low, Open Approach (ICD-10-PCS; principal; 2018-08-14 10:30)
DX: O34.29 Maternal care due to uterine scar from other previous surgery (principal); Z3A.37 37 weeks gestation of pregnancy; D25.9 Leiomyoma of uterus, unspecified; O34.13 Maternal care for benign tumor of corpus uteri, third trimester; Z37.0 Single live birth

== ENCOUNTER → 2018-10-13 | Outpatient (CLI) | payer OTHER ==
[~2018-10-13] MED LIST changes: -BICITRA 30ML SOLN UDC PO ONE; +CLAR5TAB11 PO; +COLA100C5 PO; +KEFL500C17 PO; -LR 1,000 ML IV ONE; -LR 1,000 ML IV SCH; +OXYC1TAB23 PO; +ZOLOFT PO
--- NOTE | 2018-10-13 12:14 | REP ---
Clinical: Abdominal and right flank pain Technique: Upright view of the chest with supine and upright views of the abdomen and pelvis. Findings: Frontal upright view of the chest demonstrates no acute cardiopulmonary process or free air below the diaphragm to suspect pneumoperitoneum. Supine and upright views of the abdomen and pelvis demonstrate nonspecific bowel gas pattern without obstruction or perforation. No organomegaly. No abnormal calcifications. Evidence for prior cholecystectomy. Skeletal structures normal for age. Impression: Nonspecific bowel gas pattern. Electronically Signed by Roque Peck MD 10/13/2018 12:05 P
== END ==
LOC: M LRY 11:40
PROVIDERS: ATTEND Nurse Practitioner Family
DX: R10.9 Unspecified abdominal pain (principal); R30.0 Dysuria
CPT/HCPCS: 74021; 81002; 81025; 87086; 87661; 96372; G0463; J0696; J1885

== ENCOUNTER → 2018-10-13 | Outpatient (REF) | payer OTHER ==
[2018-10-13 17:56] LABS: CHLAMYDIA DNA AMPLIFICATION NEGATIVE (NEGATIVE); GC DNA AMPLIFICATION NEGATIVE (NEGATIVE)
== END ==
LOC: M SFHCLERA 10:36
PROVIDERS: ATTEND Nurse Practitioner Family
DX: R30.0 Dysuria (principal)

== ENCOUNTER 2019-02-08 00:44 | Day surgery (SDC) | payer OTHER ==
[~2019-02-08] VITALS: Ht 165.1 cm; Wt 102.4 kg
[2019-02-08] MEDS ORDERED: KETOROLAC 30 MG/ML VIAL (J1885) IV ONE (02:45)
[2019-02-08] MEDS ORDERED: ONDANSETRON 4MG/2ML VIAL (J2405) IV ONE (02:45)
[2019-02-08 03:34] LABS: BASO # 0.1 10^3/uL (0.0-0.2); BASO % 0.4 % (0.0-1.0); EOS # 0.1 10^3/uL (0.0-0.5); EOS % 0.7 % (0.0-3.0); HEMATOCRIT 36.3 % (36.0-47.0); HEMOGLOBIN 12.1 g/dl (12.0-15.5); LYMPH # 2.8 10^3/uL (1.5-5.0); LYMPH % 20.5 % (24.0-44.0); MEAN CORPUSCULAR HEMOGLOBIN 28.8 pg (27.0-33.0); MEAN CORPUSCULAR HGB CONC 33.3 g/dl (32.0-36.5); MEAN CORPUSCULAR VOLUME 86.4 fl (80.0-96.0); MONO # 0.8 10^3/uL (0.0-0.8); MONO % 5.6 % (0.0-5.0); NEUTROPHILS % 72.4 % (36.0-66.0); PLATELET COUNT, AUTOMATED 273 10^3/uL (150-450); WHITE BLOOD COUNT 13.8 10^3/uL (4.0-10.0)
[2019-02-08 03:53] LABS: HCG, SERUM QUALITATIVE NEGATIVE (NEGATIVE)
[2019-02-08 03:54] LABS: BLOOD UREA NITROGEN 15 MG/DL (7-18); CALCIUM LEVEL 8.6 MG/DL (8.5-10.1); CARBON DIOXIDE LEVEL 25 MEQ/L (21-32); CHLORIDE LEVEL 110 MEQ/L (98-107); CREATININE FOR GFR 1.05 MG/DL (0.55-1.30); GLOMERULAR FILTRATION RATE > 60.0 (>58); GLUCOSE, FASTING 106 MG/DL (70-100); SODIUM LEVEL 142 MEQ/L (136-145)
[2019-02-08] MEDS ORDERED: MORPHINE 4 MG/ML 1ML VIAL/SYRINGE (J2270) IV PRN (04:45)
[2019-02-08] MEDS ORDERED: TAMSULOSIN 0.4 MG CAP PO ONE (04:45)
--- NOTE | 2019-02-08 05:10 | REPVR ---
PROCEDURE INFORMATION: Exam: CT Abdomen And Pelvis Without Contrast Exam date and time: 02/08/2019 4:01 AM Clinical history: 39 years old, female; Abdominal pain; Flank; Right; Additional info: Right flank pain R/O stone TECHNIQUE: Imaging protocol: Computed tomography of the abdomen and pelvis without contrast. Radiation optimization: All CT scans at this facility use at least one of these dose optimization techniques: automated exposure control; mA and/or kV adjustment per patient size (includes targeted exams where dose is matched to clinical indication); or iterative reconstruction. COMPARISON: CT ABD/PEL W/IV CONTRAST ONLY 01/17/2017 12:34 PM FINDINGS: Liver: Enlarged low attenuating liver, evidence of hepatic steatosis. Gallbladder and bile ducts: Cholecystectomy. Pancreas: Normal. No ductal dilation. Spleen: Normal. No splenomegaly. Adrenals: Normal. No mass. Kidneys and ureters: 8mm obstructing (coronal series 202 image 74) right ureteral calculus at the level of the acetabulum causes moderate severe right hydroureter and hydronephrosis. Stomach and bowel: Unremarkable. No obstruction. No mucosal thickening. Appendix: No evidence of appendicitis. Intraperitoneal space: Unremarkable. No free air. No significant fluid collection. Vasculature: Unremarkable. No abdominal aortic aneurysm. Lymph nodes: Unremarkable. No enlarged lymph nodes. Bladder: Unremarkable as visualized. Reproductive: Unremarkable as visualized. Bones/joints: Unremarkable. No acute fracture. Soft tissues: Unremarkable. IMPRESSION: 8mm obstructing (coronal series 202 image 74) right ureteral calculus at the level of the acetabulum causes moderate severe right hydroureter and hydronephrosis. Electronically signed by: Yassine Meredith On 02/08/2019 05:10:30 AM
[2019-02-08] MEDS ORDERED: NS 1,000 ML IV SCH (06:30)
[2019-02-08] MEDS ORDERED: LORA-674 PO (06:53)
[2019-02-08] MEDS ORDERED: SERT-138 PO (06:53)
[2019-02-08] MEDS ORDERED: FLON1SPR (06:53)
[2019-02-08] MEDS ORDERED: PREN27TA3 PO (06:53)
[2019-02-08] MEDS ORDERED: IPRATROPIUM 0.5MG/ALBUTEROL 2.5MG INH SOL UD 3ML (DUONEB)(J7620) As Ordered ONE (10:16)
[2019-02-08] MEDS ORDERED: CONRAY-60 60% 50ML VIAL (Q9961) As Ordered ONE (10:29)
[2019-02-08] MEDS ORDERED: fentaNYL 100 MCG/2 ML INJECTION (J3010) As Ordered ONE (11:15)
[2019-02-08] MEDS ORDERED: LIDOCAINE 2% INJ 100 MG/5 ML SDV (FOR ANES.) As Ordered ONE (11:15)
[2019-02-08] MEDS ORDERED: MIDAZOLAM INJ 2 MG/2 ML VIAL (J2250) As Ordered ONE (11:15)
[2019-02-08] MEDS ORDERED: dexameTHASONE 4 MG/ML 1ML VIAL (J1100) As Ordered ONE (11:15)
[2019-02-08] MEDS ORDERED: PROPOFOL 200 MG/20 ML VIAL As Ordered ONE (11:15)
[2019-02-08] MEDS ORDERED: ONDANSETRON 4MG/2ML VIAL (J2405) As Ordered ONE (11:15)
--- NOTE | 2019-02-08 11:17 | SMCUROLCON ---
Urology Consultation General Date of Consultation 02/08/19 Reason For Consultation This patient is seen for Kidney Stone. History of Present Illness This is a 39 y/o F w/ a PMH significant for asthma, who presented to the ER w/ acute onset right flank pain. A CT A/P was obtained in the ER and was notable for an obstructing 8mm distal right ureteral stone causing moderate to severe hydroureteronephrosis. No other stones were seen. She has been receiving pain medication in the ER, but despite this her pain has not improved much. She denies fevers or chills. Her UA appears negative for infection. She has never had kidney stones before. Past Medical History Medical History see HPI Surgical Hstory C section right shoulder surgery carpal tunnel surgery myomectomy cholecystectomy Medications Current Medications Current Medications Medications (Trade) Dose Ordered Sig/Ace Route PRN Reason Start Time Stop Time Status Last Admin Dose Admin Home Med (Med Rec Complete!) ASDIRECTED XX 02/08/19 07:00 02/08/19 06:57 DC Morphine Sulfate (Morphine Sulfate Inj) 4 mg Q30M PRN IV SEVERE PAIN (PS 8-10) 02/08/19 04:45 02/08/19 05:03 Sodium Chloride 1,000 ml @ 100 mls/hr Q10H IV 02/08/19 06:30 02/08/19 06:59 Allergies Allergies: Coded Allergies: codeine (Verified Allergy, Unknown, loss of consciousness, 08/14/18) PER [facility] RECORDS PT HAS HAD MORPHINE IN THE PAST Review of Systems Constitutional: Denies: Fever, Chills, Sweats, Weakness, Malaise Pulmonary: Denies: Dyspnea, Cough Cardiovascular: Denies Chest Pain, Denies Palpitations Musculoskeletal: Reports: Back Pain (right flank pain) Psych: Reports: Mood Normal Physical Examination General Exam: Alert, Cooperative Chest Exam: Clear to auscultation Heart Exam: Rate Normal, Regular Rhythm Abdomen Exam: Soft Skin Exam: Nl turgor and temperature Psych Exam: Mood NL Vital Signs/I&O Vital Signs Date Time Temp Pulse Resp B/P (MAP) Pulse Ox O2 Delivery O2 Flow Rate FiO2 02/08/19 09:58 96.1 74 16 128/71 (90) 99 Room Air Laboratory Data 24H Labs Laboratory Tests 2 02/08/19 01:43: Urine Color YELLOW, Urine Appearance CLEAR, Urine pH 5.0, Urine Specific [place] 1.029, Urine Protein 2+H, Urine Glucose (UA) NEGATIVE, Urine Ketones NEGATIVE, Urine Blood 3+H, Urine Nitrite NEGATIVE, Urine Bilirubin NEGATIVE, Urine Urobilinogen 0.2, Urine Leukocyte Esterase NEGATIVE, Urine WBC (Auto) 3, Urine RBC (Auto) 166H, Urine Hyaline Casts (Auto) 0, Urine Bacteria (Auto) 1+H, Urine Squamous Epithelial Cells 1, Urine Mucus (Auto) SMALL, Urine Sperm (Auto) 02/08/19 03:21: Immature Granulocyte % (Auto) 0.4, Neutrophils (%) (Auto) 72.4H, Lymphocytes (%) (Auto) 20.5L, Monocytes (%) (Auto) 5.6H, Eosinophils (%) (Auto) 0.7, Basophils (%) (Auto) 0.4, Neutrophils # (Auto) 10.0H, Lymphocytes # (Auto) 2.8, Monocytes # (Auto) 0.8, Eosinophils # (Auto) 0.1, Basophils # (Auto) 0.1, Nucleated Red Blood Cells % (auto) 0.0, Anion Gap 7L, Glomerular Filtration Rate > 60.0, Calcium Level 8.6, Human Chorionic Gonadotropin, Qual NEGATIVE CBC/BMP Laboratory Tests 02/08/19 03:21 Assessment This is a 39 y/o F w/ persistent right flank pain due to an obstructing 8mm distal right ureteral stone. Due to her continued pain, I recommended that we take her to the OR today for cystoscopy, right ureteroscopy w/ laser lithotripsy, and right ureteral stent placement. After a discussion of the risks and benefits of surgery, informed consent was signed. Plan - informed consent signed - NPO - ancef 2g OCOR - assuming patient's pain is better postop, she can be discharged home POOJA ADKINS MD Feb 08, 2019 11:17
[2019-02-08] MEDS ORDERED: ceFAZolin 2 GM/D5W 50 ML IV BAG (J0690 PER 500MG) As Ordered ONE (11:44)
[2019-02-08] MEDS ORDERED: ceFAZolin SOD 2 GM in IV 1 EA IV ONE (12:00)
[2019-02-08] MEDS ORDERED: LR 1,000 ML IV SCH (12:45)
[2019-02-08] MEDS ORDERED: fentaNYL 100 MCG/2 ML INJECTION (J3010) IV PRN (12:45)
[2019-02-08] MEDS ORDERED: ONDANSETRON 4MG/2ML VIAL (J2405) IV PRN (12:45)
[2019-02-08] MEDS ORDERED: HYDROMORPHONE HCL 0.5 MG/ 0.5 ML SYRINGE (J1170 PER 1) IV PRN (12:45)
[2019-02-08] MEDS ORDERED: PERCOCET 5MG/325MG TAB PO PRN ×2 (12:45→13:46)
--- NOTE | 2019-02-08 13:03 | RO ---
DATE OF PROCEDURE: 02/08/2019 PREPROCEDURE DIAGNOSIS: Right ureteral stone. POSTPROCEDURE DIAGNOSIS: Right ureteral stone. PROCEDURE: Cystoscopy, right ureteroscopy with laser lithotripsy and basket extraction of stones, right retrograde pyelogram with intraoperative interpretation of images, right ureteral stent placement. SURGEON: Dr. Prudencio Limon PATROL MAN: None. ANESTHESIA: General. OPERATIVE INDICATIONS: This is a 39-year-old female who was found to have an obstructing 8 mm distal right ureteral stone. She was brought to the operating room today for treatment. DESCRIPTION OF PROCEDURE: The patient was brought to the operating room and general anesthesia was induced. Prophylactic antibiotics were infused. She was then placed in dorsal lithotomy position and prepped and draped in the usual sterile fashion. A rigid cystoscope was inserted into the urethral meatus and advanced into the bladder. Once inside the bladder, a guidewire was advanced up the right collecting system. I then went up the right collecting system with a short semi-rigid ureteroscope. Within the distal ureter, the 8 mm stone was seen. We then fragmented the stone into smaller pieces using a 272 micron laser fiber. All of the fragments were removed using a basket. The proximal ureter was then examined and no additional stones were seen. A retrograde pyelogram was performed and it was notable for severe right hydroureteronephrosis with no extravasation. I then withdrew the ureteroscope and then utilized the previously placed wire to advance a 6 Cambodian x 22-32 cm JJ ureteral stent up into the right collecting system. The wire was removed and there were adequate curls of the stent in the right renal pelvis and in the bladder. The bladder was emptied of all fluids and this marked the conclusion of the procedure. The patient was taken out of the dorsal lithotomy position, awakened from anesthesia and transported to the recovery room in stable condition. Estimated blood loss: 5 mL. Complications: None. Specimen: Ureteral stone fragments. Plan: The patient will followup in the clinic in a few weeks for stent removal. MARGARET
[2019-02-08 13:30] VITALS: BP 135/81
[2019-02-08] MEDS ORDERED: oxyBUTYnin 5 MG TAB PO PRN (13:46)
--- NOTE | 2019-02-08 15:08 | REP ---
C-ARM VIEW OF THE ABDOMEN: C-arm view of the abdomen is performed. Stent is seen in the right ureter with a wire extending into the right renal pelvis. There appears to be mild dilatation of the right renal pelvis which is partially opacified by contrast. 5 seconds fluoroscopy time utilized. Electronically Signed by Silverio Okeefe MD 02/10/2019 10:57 A
[2019-02-19 14:19] LABS: CA Oxalate Dihy 15 % (.); Ca Ox Monohydrate 35 % (.)
== END 2019-02-08 14:05 | disposition home or self-care (01) ==
LOC: M ED 00:44 → M SDC 00:45
PROVIDERS: ATTEND Urology
DX: N20.1 Calculus of ureter (principal); J45.909 Unspecified asthma, uncomplicated; G43.909 Migraine, unspecified, not intractable, without status migrainosus; Z79.899 Other long term (current) drug therapy; Z88.5 Allergy status to narcotic agent
CPT/HCPCS: 36415; 52356; 74176; 74420; 80048; 81001; 82360; 84703; 85025; 88300; 96374; 96375; 99284; C1769; C2617; J0690; J1100; J1885; J2250; J2270; J2405; J3010; Q9961

== ENCOUNTER 2019-08-09 23:39 | Emergency (ER) | payer OTHER ==
[~2019-08-09] VITALS: Ht 165.1 cm; Wt 102.9 kg
[~2019-08-09 23:39] MED LIST changes: +CLON0.5T2 PO; -CLON0.5T8 PO; +FLON1SPR; +LORA-674 PO; +PREN27TA3 PO; +SERT-138 PO
[2019-08-09] MEDS ORDERED: WELLTAB38 PO (23:46)
[2019-08-09] MEDS ORDERED: HYDR-3363 PO (23:46)
[2019-08-10 00:44] LABS: HEMATOCRIT 38.3 % (36.0-47.0); HEMOGLOBIN 12.3 g/dl (12.0-15.5); MEAN CORPUSCULAR HEMOGLOBIN 26.1 pg (27.0-33.0); MEAN CORPUSCULAR HGB CONC 32.1 g/dl (32.0-36.5); MEAN CORPUSCULAR VOLUME 81.1 fl (80.0-96.0); PLATELET COUNT, AUTOMATED 295 10^3/uL (150-450); RED BLOOD COUNT 4.72 10^6/uL (4.00-5.40); WHITE BLOOD COUNT 15.2 10^3/uL (4.0-10.0)
[2019-08-10] MEDS ORDERED: ONDANSETRON 4MG/2ML VIAL IV ONE (00:45)
[2019-08-10] MEDS ORDERED: NS 1,000 ML IV ONE (00:45)
[2019-08-10 01:02] LABS: ATYPICAL LYMPH 3 % (0-5); BASOPHILS 1 % (0-1); EOSINOPHILS 2 % (0-3); LYMPHOCYTES 34 % (16-44); MONOCYTES 6 % (0-5); NEUTROPHILS 54 % (28-66)
[2019-08-10 01:03] LABS: ANISOCYTOSIS 1+; PLATELET ESTIMATE NORMAL (NORMAL)
[2019-08-10] MEDS ORDERED: ISOVUE-370 76% 100ML VIAL As Ordered ONE (01:11)
[2019-08-10 01:12] LABS: ALBUMIN 3.5 GM/DL (3.2-5.2); ALT/SGPT 40 U/L (12-78); BILIRUBIN,DIRECT < 0.1 MG/DL (0.0-0.2); BILIRUBIN,TOTAL 0.2 MG/DL (0.2-1.0); LIPASE 173 U/L (73-393); TOTAL PROTEIN 7.3 GM/DL (6.4-8.2)
[2019-08-10] MEDS ORDERED: KETOROLAC 30 MG/ML 1ML VIAL IV ONE (01:15)
--- NOTE | 2019-08-10 01:43 | REPVR ---
PROCEDURE INFORMATION: Exam: CT Abdomen And Pelvis With Contrast Exam date and time: 08/10/2019 1:06 AM Age: 39 years old Clinical indication: Nausea and vomiting and other: Diarrhea; Abdominal pain; Localized; Right lower quadrant (rlq); Additional info: Rlq abd pain, elev wbc, vomiting TECHNIQUE: Imaging protocol: Computed tomography of the abdomen and pelvis with intravenous contrast. Radiation optimization: All CT scans at this facility use at least one of these dose optimization techniques: automated exposure control; mA and/or kV adjustment per patient size (includes targeted exams where dose is matched to clinical indication); or iterative reconstruction. Contrast material: ISO; Contrast volume: 100 ml; Contrast route: HAND; COMPARISON: CT ABD PELVIS W/O CONTRAST 02/08/2019 4:06 AM FINDINGS: Liver: There is hepatomegaly and hepatic steatosis. Gallbladder and bile ducts: There has been prior cholecystectomy. No biliary duct dilation. Pancreas: Normal. No ductal dilation. Spleen: Normal. No splenomegaly. Adrenals: Normal. No mass. Kidneys and ureters: Normal. No hydronephrosis. Stomach and bowel: Unremarkable. No obstruction. No mucosal thickening. Appendix: No evidence of appendicitis. Intraperitoneal space: Unremarkable. No free air. No significant fluid collection. Vasculature: Unremarkable. No abdominal aortic aneurysm. Lymph nodes: Unremarkable. No enlarged lymph nodes. Bladder: Unremarkable as visualized. Reproductive: Incidental 1.8 cm fibroid in the uterus. Uterus and adnexa are otherwise unremarkable. Bones/joints: There are degenerative changes in the spine and pelvis. Soft tissues: Unremarkable. IMPRESSION: 1. No acute inflammatory process or bowel obstruction. Normal appendix. 2. Hepatic steatosis and hepatomegaly. 3. Incidental small uterine fibroid. Electronically signed by: Tommie Mon On 08/10/2019 01:42:32 AM
[2019-08-10] MEDS ORDERED: DICYCLOMINE 10 MG CAP PO ONE (02:15)
[2019-08-10] MEDS ORDERED: ONDA4TAB6 PO (02:15)
[2019-08-10 02:35] VITALS: BP 140/80
[2019-08-10] MEDS ORDERED: DICY10CA13 PO (02:43)
--- NOTE | 2019-08-10 13:41 | ED PDOC ---
Post-Departure Follow-Up ft dejah remy faxed formal report of ct abd/p for fu Ernesto Hill MD Aug 10, 2019 13:41
== END 2019-08-10 02:50 | disposition home or self-care (01) ==
LOC: M ED 23:39
DX: K52.9 Noninfective gastroenteritis and colitis, unspecified (principal); D72.829 Elevated white blood cell count, unspecified; D25.9 Leiomyoma of uterus, unspecified; I10 Essential (primary) hypertension; J45.909 Unspecified asthma, uncomplicated; G44.89 Other headache syndrome; Z90.49 Acquired absence of other specified parts of digestive tract; Z98.890 Other specified postprocedural states; Z88.6 Allergy status to analgesic agent
CPT/HCPCS: 36415; 74177; 80047; 80076; 81001; 83690; 84702; 85025; 96361; 96374; 96375; 99284; J1885; J2405; Q9967

== ENCOUNTER → 2020-01-01 | Outpatient (CLI) | payer OTHER ==
[~2020-01-01] MED LIST changes: +DICY10CA13 PO; +HYDR-3363 PO; +ONDA4TAB6 PO; +WELLTAB38 PO
--- NOTE | 2020-01-01 15:37 | REPMRS ---
Patient History The patient states she has not had a clinical breast exam in over a year. Patient had first child at age 38. Family history of prostate cancer at age 50 or over in maternal grandfather, prostate cancer at age 50 or over in paternal grandfather. No Hormone Replacement Therapy Digital Woman Screen Mammo: January 01, 2020 - Exam #: [id number] Bilateral CC and MLO view(s) were taken. Technologist: Iesha Dinh, Technologist No prior studies available for comparison. FINDINGS: The breast tissue is almost entirely fat. The Volpara volumetric breast density category is: A. There is no evidence of dominant mass, architectural distortion, or grouped microcalcification typical of malignancy. 3-D tomosynthesis shows no additional findings. Assessment: BI-RADS/ACR category 1 mammogram. Negative Mammogram. Recommendation Routine screening mammogram of both breasts in 1 year (for women over age 40). This patient's Lifetime Breast Cancer RIsk is estimated at 17.4 %. This mammogram was interpreted with the aid of an FDA-approved computer-aided dectection system. Electronically Signed By: Nic Dickson MD 01/01/20 [id number]
== END ==
LOC: M WHC 13:11
PROVIDERS: ATTEND Family Medicine
DX: Z12.31 Encounter for screening mammogram for malignant neoplasm of breast (principal)

== ENCOUNTER → 2020-08-26 | Outpatient (CLI) | payer OTHER ==
[~2020-08-26] MED LIST changes: +E-Z-GAS II EFFERVESCENT PACKET (SODIUM BICARB./CITRIC ACID/SIMETHICONE) As Ordered ONE; +E-Z-HD 98% w/w 340GM SUSP BTL As Ordered ONE; +E-Z-PAQUE 96% w/w SUSP 176GM BTL As Ordered ONE
--- NOTE | 2020-08-26 17:12 | REP ---
INDICATION: GERD. COMPARISON: None TECHNIQUE: This procedure was performed by Misty Leonard [facility], under the direct supervision of Dr. Okeefe. Images were reviewed with Dr. Okeefe prior to dictation. Liquid barium and gas producing crystals were given in the erect position, as well as liquid barium in the prone oblique position in order to perform a double contrast upper GI examination. FINDINGS: The world designer film shows no organomegaly or pathological masses. The intestinal gas pattern is unremarkable. The oral and pharyngeal stages of deglutition were unremarkable. Esophageal transport is prompt and efficient and there is no evidence of esophagitis, stricture, or mucosal ring. There is evidence of a small hiatal hernia. There was no gastroesophageal reflux noted . The stomach holly are normally outlined. The rugal folds are smooth and regular. There is no gastritis, neoplasm, or ulcerative disease. The duodenal holly are normally outlined. The mucosal folds are smooth and regular. There is no duodenitis, peptic ulcer disease or neoplasm. The visualized portion of the proximal small bowel appears normal in course and caliber. IMPRESSION: 1. Small hiatal hernia. 0.6 minutes of fluoroscopy time was utilized for this procedure. Some fluoroscopic images are performed with last image hold technology. These images require no additional radiation. <Electronically signed by Misty Leonard > 08/26/20 1622 <Electronically signed by Silverio Okeefe > 08/26/20 1707
== END ==
LOC: M RAD 08:20
DX: K44.9 Diaphragmatic hernia without obstruction or gangrene (principal); K21.9 Gastro-esophageal reflux disease without esophagitis; Z98.84 Bariatric surgery status; E66.01 Morbid (severe) obesity due to excess calories; Z68.38 Body mass index [BMI] 38.0-38.9, adult

== ENCOUNTER 2021-01-08 06:06 | Day surgery (SDC) | payer OTHER ==
[~2021-01-08] VITALS: Ht 165.1 cm; Wt 104.8 kg
[~2021-01-08 06:06] MED LIST changes: +ACETAMINOPHEN *IV* 1,000 MG IV ONE; +BUPR150T12 PO; -E-Z-GAS II EFFERVESCENT PACKET (SODIUM BICARB./CITRIC ACID/SIMETHICONE) As Ordered ONE; -E-Z-HD 98% w/w 340GM SUSP BTL As Ordered ONE; -E-Z-PAQUE 96% w/w SUSP 176GM BTL As Ordered ONE; +ERGO500029 PO; +GABAPENTIN 300 MG CAP PO ONE; +LIDOCAINE 1% MDV 20ML VIAL SQ PRN; +LR 1,000 ML IV ONE; +PANT40TA29 PO; +PRAV20TA2 PO; +SCOPOLAMINE 1MG TRANSDERMAL PATCH TOP ONE; +VITMTA PO; +ZOLO100T PO
[2021-01-08 06:58] LABS: HEMATOCRIT 39.6 % (36.0-47.0); HEMOGLOBIN 12.7 g/dl (12.0-15.5); MEAN CORPUSCULAR HEMOGLOBIN 26.6 pg (27.0-33.0); MEAN CORPUSCULAR HGB CONC 32.1 g/dl (32.0-36.5); PLATELET COUNT, AUTOMATED 345 10^3/uL (150-450); RED BLOOD COUNT 4.77 10^6/uL (4.00-5.40); WHITE BLOOD COUNT 13.2 10^3/uL (4.0-10.0)
[2021-01-08 07:17] LABS: ALBUMIN 3.5 GM/DL (3.2-5.2); ALT/SGPT 42 U/L (12-78); BILIRUBIN,TOTAL 0.3 MG/DL (0.2-1.0); BLOOD UREA NITROGEN 8 MG/DL (7-18); CALCIUM LEVEL 9.3 MG/DL (8.5-10.1); CARBON DIOXIDE LEVEL 24 MEQ/L (21-32); CHLORIDE LEVEL 108 MEQ/L (98-107); CREATININE FOR GFR 0.72 MG/DL (0.55-1.30); GLOMERULAR FILTRATION RATE > 60.0 (>58); GLUCOSE, FASTING 82 MG/DL (70-100); SODIUM LEVEL 139 MEQ/L (136-145); TOTAL PROTEIN 8.3 GM/DL (6.4-8.2)
[2021-01-08] MEDS ORDERED: BUPIVACAINE HCL 0.25% 30ML VIAL As Ordered ONE (07:18)
[2021-01-08] MEDS ORDERED: METHYLENE BLUE 0.5% (5MG/ML) 10 ML AMP (PROVAYBLUE) As Ordered ONE (07:18)
[2021-01-08] MEDS ORDERED: ROCURONIUM BROMIDE 50 MG/5 ML VIAL As Ordered ONE (07:20)
[2021-01-08] MEDS ORDERED: dexameTHASONE 4 MG/ML 1ML VIAL (J1100 PER 1MG) As Ordered ONE (07:20)
[2021-01-08] MEDS ORDERED: LIDOCAINE 2% 100MG/5ML SDV (FOR ANES.) As Ordered ONE (07:20)
[2021-01-08] MEDS ORDERED: MIDAZOLAM INJ 2MG/2ML VIAL (J2250 PER 1MG) As Ordered ONE (07:20)
[2021-01-08] MEDS ORDERED: ONDANSETRON 4MG/2ML VIAL As Ordered ONE (07:20)
[2021-01-08] MEDS ORDERED: propofoL 200 MG/20 ML VIAL As Ordered ONE (07:20)
[2021-01-08] MEDS ORDERED: fentaNYL 250 MCG/5 ML INJECTION (J3010) As Ordered ONE (07:20)
[2021-01-08] MEDS ORDERED: ceFAZolin 1GM VIAL (J0690 PER 500MG) As Ordered ONE ×2 (07:39→07:55)
[2021-01-08] MEDS ORDERED: ceFAZolin SOD 1 GM in D5W MINI-BAG PLUS 50 ML IV ONE ×6 (07:45)
[2021-01-08] MEDS ORDERED: LACRILUBE (AKWA TEARS) OPHTH OINT 3.5 GM As Ordered ONE (07:53)
[2021-01-08] MEDS ORDERED: GLYCOPYRROLATE INJ 0.2 MG/ML 2 ML VIAL As Ordered ONE (08:32)
[2021-01-08] MEDS ORDERED: ePHEDrine SULFATE 25 MG/5 ML(5MG/ML) SYRINGE As Ordered ONE (08:35)
[2021-01-08] MEDS ORDERED: SUGAMMADEX SODIUM 500 MG/5 ML VIAL (BRIDION) As Ordered ONE (09:31)
[2021-01-08] MEDS ORDERED: HYDROmorphone HCL 2 MG/ML 1ML VIAL As Ordered ONE (09:31)
[2021-01-08] MEDS ORDERED: ACETAMINOPHEN 1000MG 100ML IV BTL (OFIRMEV) (J0131 PER 10MG) As Ordered ONE (09:31)
[2021-01-08] MEDS ORDERED: KETOROLAC 60MG 2ML VIAL As Ordered ONE (09:35)
[2021-01-08] MEDS ORDERED: METOCLOPRAMIDE INJ 10MG/2ML VIAL (J2765 PER 1) As Ordered ONE (10:40)
--- NOTE | 2021-01-08 11:13 | POST-OPPD ---
Postoperative Procedure Note Date Of Procedure: Jan 08, 2021 PREOPERATIVE DIAGNOSIS: fibroid uterus, dysmenorrhea POSTOPERATIVE DIAGNOSIS: fibroid uterus, dysmenorrhea, pelvic adhesive disease, right simple ovarian cyst PROCEDURE: robotic assisted total laparoscopic hysterectomy with bilateral salpingectomy, lysis of pelvic adhesions, right ovarian cystectomy, and cystoscopy SURGEON: Rene Vásquez DO NATURAL RESOURCE TECHNICIAN: Lee Ann Nicole MD ANESTHESIA: general ESTIMATED BLOOD LOSS: 50cc FINDINGS: The liver appeared to have fat infiltration. The stomach edge appeared normal. The appendix was not visualized. Adhesions from bowel to anterior abdominal wall and ovaries, from bladder to uterus, and from fallopian tubes to ovaries lysed. Uterus had a visible anterior pedunculated and subserosal fibroid. The fallopian tubes appeared erythematous and dilated. There was an approx 5cm simple right ovarian cyst that was removed, and had spill, during the procedure. Robotic assisted hysterectomy was performed without complication. Cystoscopy was without visible trauma and bilateral ureters had brisk flow vis ualized with methylene blue. Angie was applied to all surgical sites. SPECIMENS: Uterus, cervix, and fallopian tubes. Right ovarian cyst wall. COMPLICATIONS: none. POSTOPERATIVE CONDITION: stable. RENE VÁSQUEZ DO Jan 08, 2021 11:13
[2021-01-08] MEDS ORDERED: ONDANSETRON 4MG/2ML VIAL IV PRN (11:30)
[2021-01-08] MEDS ORDERED: oxyCODONE 5MG TAB PO PRN (11:30)
[2021-01-08] MEDS ORDERED: LR 1,000 ML IV SCH (11:30)
--- NOTE | 2021-01-08 11:31 | ROOPDOC ---
[facility] Report Of Operation Report of Operation PREOPERATIVE DIAGNOSIS: fibroid uterus, dysmenorrhea POSTOPERATIVE DIAGNOSIS: fibroid uterus, dysmenorrhea, pelvic adhesive disease, right simple ovarian cyst PROCEDURE: robotic assisted total laparoscopic hysterectomy with bilateral salpingectomy, lysis of pelvic adhesions, right ovarian cystectomy, and cystoscopy SURGEON: Kourtney Vásquez DO INFORMATION SYSTEMS DIRECTOR: Lee Ann Nicole MD ANESTHESIA: general ESTIMATED BLOOD LOSS: 50cc FINDINGS: The liver appeared to have fat infiltration. The stomach edge appeared normal. The appendix was not visualized. Adhesions from bowel to anterior abdominal wall and ovaries, from bladder to uterus, and from fallopian tubes to ovaries lysed. Uterus had a visible anterior pedunculated and subserosal fibroid. The fallopian tubes appeared erythematous and dilated. There was an approx 5cm simple right ovarian cyst that was removed, and had spill, during the procedure. Robotic assisted hysterectomy was performed without complication. Cystoscopy was without visible trauma and bilateral ureters had brisk flow visualized with methylene blue. Foreign was applied to all surgical sites. SPECIMENS: Uterus, cervix, and fallopian tubes. Right ovarian cyst wall. COMPLICATIONS: none. POSTOPERATIVE CONDITION: stable. PROCEDURE NOTE: The risks, benefits, and alternatives of the procedure were discussed and written consent obtained. The patient was given 3g of ancef prior to the procedure. She was taken to the OR where she underwent general anesthesia. She was positioned in low lithotomy in the yellow fins with her arms tucked. The abd omen and vagina were prepped and draped in a sterile fashion. A gray catheter was placed in the bladder. A final time out was performed. A speculum was placed in the vagina and the cervix grasped with a single tooth tenaculum. The uterus was sounded to 9cm. An 0-vicryl stitch was used to tag the anterior lip of the cervix. A medium sized v-care manipular was placed. Care was taken to ensure there was no entrapped vaginal mucosa. Gloves were changed. The area approx 15-20cm superior to the specimen was marked, just above the umbilicus, and injected with 0.25% marcaine. An 8mm incision was made and a Davinci port was placed via the direct technique. The opening pressure was 5 mmHg and there was no trauma below the entry site. The area approx 10cm and 20cm lateral to the umbilicus bilaterally where then injected with 0.25% marcaine and 8mm incisions made. 4 additional ports were then placed under direct visualization. The [employer] robot was then docked. An adhesion from the bowel to the anterior abdominal wall was lysed with the monopolar sheers. The raw edge was hemostatic with the aid of cautery and foreign. The bilateral fallopian tubes had adhesions to the ovaries which were lysed, the bilateral mesosalpinx was then transected with the vessel sealer to release the tubes. The bilateral uteroovarian and round ligaments were transected. The anterior leaf of the broad ligament was then and transected followed by the posterior leaf skeletonizing the bilateral uterine arteries. They were cauterized and cut with the vessel sealer. They were then dissected from the cervix. The anterior leaf dissection was carried anteriorly to create a bladder flap. The vaginal cup could be palpated and the monopolar sheers were used to make an anterior colpotomy which was then carried circumferentially until the uterus was truncated and removed from the vagina. An incision was made with the monopolar sheers on the right ovarian cyst wall, the wall was then bluntly dissected from the cyst. During this process the cyst ruptured with a small amount of clear spill, the remainder of the contents were suctioned from the cyst. The wall was then completely removed and sent for pathology. The redundant ovarian tissue was also removed to aid in hemostasis which was achieved with foreign and bipolar cautery. The vaginal cuff was then closed in 2 layers with the v-loc suture. Arterial bleeding was noted on the left side of the cuff and a reinforcement stitch was placed around the left uterine artery. The cuff was hemostatic on completion and foreign was applied. The pneumoperitoneum was released. The gray was removed and cystoscopy performed. There was no visible bladder trauma. The bilateral ureters had brisk flow visualized with the aid of methylene blue. The bladder was drained. The vaginal cuff was palpated and there were no defects. Gloves were changed. The pneumoperitoneum was reinstated and all surgical sites remained hemostatic. The ports were removed under visualization and were hemostatic. The pneumoperitoneum was released. The post sites were reapproximated with 4-0 monocryl and secured with dermabond. There were no complications and the patient tolerated the procedure well. The sponge, lap, and needle counts were correct x2. The patient was transferred to recovery in stable condition. KOURTNEY VÁSQUEZ DO Jan 08, 2021 11:31
[2021-01-08] MEDS ORDERED: MORPHINE 2 MG/ML 1ML VIAL (J2270) IV PRN (11:35)
[2021-01-08] MEDS ORDERED: PROMETHAZINE INJ 25 MG/ML VIAL (J2550) IV PRN (12:45)
[2021-01-08] MEDS: fentaNYL 100 MCG/2 ML INJECTION (J3010) IV PRN ×2 (12:48→12:59)
[2021-01-08 16:00] VITALS: BP 139/75
[2021-01-08] MEDS ORDERED: ACETAMINOPHEN 500 MG TAB PO SCH (16:00)
[2021-01-08] MEDS ORDERED: IBUPROFEN 800 MG TAB PO SCH (20:00)
[2021-01-09] MEDS ORDERED: ceFAZolin SOD 3 GM in IV 1 EA IV ONE (06:00)
== END 2021-01-08 16:27 | disposition home or self-care (01) ==
LOC: M SDC 06:06
PROVIDERS: ATTEND Obstetrics & Gynecology
DX: D25.9 Leiomyoma of uterus, unspecified (principal); R10.2 Pelvic and perineal pain; N80.0 Endometriosis of uterus; N94.6 Dysmenorrhea, unspecified; D25.2 Subserosal leiomyoma of uterus; N73.6 Female pelvic peritoneal adhesions (postinfective); E78.5 Hyperlipidemia, unspecified; K58.8 Other irritable bowel syndrome; K21.9 Gastro-esophageal reflux disease without esophagitis; Z79.899 Other long term (current) drug therapy; Z88.5 Allergy status to narcotic agent; D64.9 Anemia, unspecified; F43.10 Post-traumatic stress disorder, unspecified; G47.33 Obstructive sleep apnea (adult) (pediatric); F41.9 Anxiety disorder, unspecified; F32.9 Major depressive disorder, single episode, unspecified
CPT/HCPCS: 36415; 58571; 58662; 80053; 81025; 85027; 86850; 86900; 86901; 88305; 88307; J0131; J0690; J1100; J1170; J1885; J2250; J2405; J2765; J3010; Q9968; S2900

== ENCOUNTER → 2021-02-03 | Outpatient (CLI) | payer OTHER ==
[~2021-02-03] MED LIST changes: -ACETAMINOPHEN *IV* 1,000 MG IV ONE; -GABAPENTIN 300 MG CAP PO ONE; +ISOVUE-370 76% 100ML VIAL As Ordered ONE; -LIDOCAINE 1% MDV 20ML VIAL SQ PRN; -LR 1,000 ML IV ONE; -SCOPOLAMINE 1MG TRANSDERMAL PATCH TOP ONE
--- NOTE | 2021-02-03 18:14 | REPVR ---
PROCEDURE INFORMATION: Exam: CT Abdomen And Pelvis Without And With Contrast Exam date and time: 02/03/2021 5:19 PM Age: 41 years old Clinical indication: Abdominal pain; Additional info: RT lower quad pain, 3 weeks post op TECHNIQUE: Imaging protocol: Computed tomography of the abdomen and pelvis without and with contrast. Radiation optimization: All CT scans at this facility use at least one of these dose optimization techniques: automated exposure control; mA and/or kV adjustment per patient size (includes targeted exams where dose is matched to clinical indication); or iterative reconstruction. Contrast material: ISOVUE 370; Contrast volume: 100 ml; Contrast route: INTRAVENOUS (IV); COMPARISON: CT ABD/PEL W/IV CONTRAST ONLY 08/10/2019 1:12 AM FINDINGS: Liver: There is a diffuse decrease in hepatic parenchymal density, consistent with steatosis. Hepatomegaly. Gallbladder and bile ducts: There has been a cholecystectomy. Pancreas: Normal. No ductal dilation. Spleen: There is mild splenomegaly with a maximum span of 13 centimeters. No focal abnormalities demonstrated. Adrenal glands: Normal. No mass. Kidneys and ureters: Small nonobstructive calculus right kidney. Stomach and bowel: Unremarkable. No obstruction. No mucosal thickening. Appendix: No evidence of appendicitis. Intraperitoneal space: Unremarkable. No free air. No significant fluid collection. Vasculature: Unremarkable. No abdominal aortic aneurysm. Lymph nodes: Unremarkable. No enlarged lymph nodes. Urinary bladder: Unremarkable as visualized. Reproductive: There has been a hysterectomy. Recent postoperative changes demonstrated in the central pelvis likely post hysterectomy. Bones/joints: Mild central spinal stenosis L4-L5. Bulging annulus L5-S1. Soft tissues: Unremarkable. IMPRESSION: 1. There is a diffuse decrease in hepatic parenchymal density, consistent with steatosis. Hepatomegaly. 2. There has been a cholecystectomy. 3. There is mild splenomegaly with a maximum span of 13 centimeters. No focal abnormalities demonstrated. 4. There has been a hysterectomy. 5. Recent postoperative changes demonstrated in the central pelvis likely post hysterectomy. Electronically signed by: Binh Hernandez On 02/03/2021 18:14:09 PM
== END ==
LOC: M RAD 15:27
PROVIDERS: ATTEND Obstetrics & Gynecology
DX: R10.31 Right lower quadrant pain (principal); R16.0 Hepatomegaly, not elsewhere classified; R16.1 Splenomegaly, not elsewhere classified
CPT/HCPCS: 74178; Q9967

== ENCOUNTER 2021-02-25 15:49 | Emergency (ER) | payer OTHER ==
[~2021-02-25] VITALS: Ht 165.1 cm; Wt 102.7 kg
[~2021-02-25 15:49] MED LIST changes: -ISOVUE-370 76% 100ML VIAL As Ordered ONE
[2021-02-25] MEDS ORDERED: METH-1022 PO (16:29)
[2021-02-25] MEDS ORDERED: ACETAMINOPHEN 325 MG TAB PO ONE (16:30)
--- NOTE | 2021-02-25 16:38 | REP ---
INDICATION: CHEST PAIN. COMPARISON: None. FINDINGS: The technique utilized in obtaining the radiograph has magnified the cardiac silhouette and accentuated the interstitial markings. The superior mediastinal structures are midline. The cardiac silhouette is unremarkable in size, shape, and position. The diaphragmatic surfaces of the lungs are regular, and the costophrenic angles are clear. The pulmonary morrison are clear. The imaged osseous structures are intact. IMPRESSION: There is no acute cardiopulmonary disease. <Electronically signed by Arslan Sanchez > 02/25/21 0883
[2021-02-25 16:40] LABS: BASO % 0.2 % (0.0-1.0); EOS # 0.1 10^3/uL (0.0-0.5); EOS % 1.1 % (0.0-3.0); HEMATOCRIT 37.3 % (36.0-47.0); HEMOGLOBIN 11.9 g/dl (12.0-15.5); LYMPH # 1.5 10^3/uL (1.5-5.0); LYMPH % 18.1 % (24.0-44.0); MEAN CORPUSCULAR HGB CONC 31.9 g/dl (32.0-36.5); MEAN CORPUSCULAR VOLUME 81.6 fl (80.0-96.0); MONO # 0.5 10^3/uL (0.0-0.8); MONO % 5.5 % (2.0-8.0); NEUTROPHILS # 6.1 10^3/uL (1.5-8.5); NEUTROPHILS % 74.5 % (36.0-66.0); PLATELET COUNT, AUTOMATED 246 10^3/uL (150-450); RED BLOOD COUNT 4.57 10^6/uL (4.00-5.40); WHITE BLOOD COUNT 8.2 10^3/uL (4.0-10.0)
[2021-02-25 17:17] LABS: ALBUMIN 3.7 GM/DL (3.2-5.2); ALT/SGPT 38 U/L (12-78); BILIRUBIN,DIRECT < 0.1 MG/DL (0.0-0.2); BILIRUBIN,TOTAL 0.5 MG/DL (0.2-1.0); BLOOD UREA NITROGEN 6 MG/DL (7-18); CALCIUM LEVEL 9.1 MG/DL (8.5-10.1); CARBON DIOXIDE LEVEL 24 MEQ/L (21-32); CHLORIDE LEVEL 105 MEQ/L (98-107); CREATININE FOR GFR 0.79 MG/DL (0.55-1.30); GLOMERULAR FILTRATION RATE > 60.0 (>58); GLUCOSE, FASTING 90 MG/DL (70-100); LIPASE 102 U/L (73-393); NT-PRO BNP 35 PG/ML (<125); SODIUM LEVEL 136 MEQ/L (136-145); THYROID STIMULATING HORMONE 0.656 uIU/ML (0.358-3.740); TOTAL PROTEIN 7.8 GM/DL (6.4-8.2)
[2021-02-25] MEDS ORDERED: diphenhydrAMINE 50MG/ML VIAL (J1200) IV STA (18:08)
[2021-02-25] MEDS ORDERED: NS 1,000 ML IV ONE (18:10)
[2021-02-25] MEDS ORDERED: KETOROLAC 30 MG/ML 1ML VIAL IV ONE (18:10)
[2021-02-25] MEDS ORDERED: METOCLOPRAMIDE INJ 10MG/2ML VIAL (J2765 PER 1) IV ONE (18:10)
[2021-02-25] MEDS ORDERED: ISOVUE-370 76% 100ML VIAL As Ordered ONE (18:24)
--- NOTE | 2021-02-25 19:18 | REPVR ---
PROCEDURE INFORMATION: Exam: CTA Chest With Contrast Exam date and time: 02/25/2021 6:05 PM Age: 41 years old Clinical indication: Dyspnea; Additional info: SOB; Post operative; Febrile TECHNIQUE: Imaging protocol: Computed tomographic angiography of the chest with contrast. 3D rendering (Not supervised by radiologist): MIP and/or 3D reconstructed images were created by the technologist. Radiation optimization: All CT scans at this facility use at least one of these dose optimization techniques: automated exposure control; mA and/or kV adjustment per patient size (includes targeted exams where dose is matched to clinical indication); or iterative reconstruction. Contrast material: ISOVUE 370; Contrast volume: 75 ml; Contrast route: INTRAVENOUS (IV); COMPARISON: CR PORTABLE CHEST X-RAY 02/25/2021 4:13 PM FINDINGS: Pulmonary arteries: Normal. No pulmonary emboli. Aorta: Unremarkable. No aortic aneurysm. No aortic dissection. Lungs: Unremarkable. No consolidation. No masses. Pleural spaces: Unremarkable. No pneumothorax. No pleural effusion. Heart: Unremarkable. No cardiomegaly. No pericardial effusion. Lymph nodes: Unremarkable. No enlarged lymph nodes. Liver: Hepatic steatosis. Gallbladder and bile ducts: Cholecystectomy. Bones/joints: Unremarkable. No acute fracture. Soft tissues: Unremarkable. IMPRESSION: No evidence of pulmonary embolus. Otherwise unremarkable. Electronically signed by: Binh Hernandez On 02/25/2021 19:17:41 PM
--- OUTSIDE RECORDS SUMMARY | 2021-02-25 19:56 | CCD | Summary of Care ---
Author Author [facility] Organization [facility] Address Unknown Phone Unavailable Care Team Providers Care Animal Care Taker Name Role Phone Ld Weston DO PCP Reason for Visit * Reason Comments Follow-up 5th appt Encounter Details Care Team Description Date Type Department Raquel Castillo NP [address] [id number] Class 2 severe obesity due to excess zachary ories with serious comorbidity and body mass index (BMI) of 37.0 to 37.9 in adult (Primary Dx); Anemia, unspecified type; Chronic GERD; Diarrhea, unspecified type; PIETRO (obstructive sleep apnea) 01/05/2021 Telemedicine [facility] [address] [id number] Allergies Comments Active Allergy Reactions Severity Noted Date Codeine Other (See High 01/26/2018 Comments) Hayfever Other 06/19/2020 documented as of this encounter (statuses as of 01/05/2021) Medications End Date Status Medication Sig Dispensed Refills Start Date Active montelukast (SINGULAIR) 10 mg nightly 0 10 MG tablet 8 Active Albuterol Sulfate HFA 108 Inhale 2 0 (90 Base) MCG/ACT puffs into Inhalation Aerosol the lungs Solution (PROVENTIL HFA) every 4 (four) hours as needed for Wheezing Active buPROPion HCl ER (SR) 150 Take 150 mg 0 MG Oral Tablet Extended by mouth Release 12 Hour every morning (Wellbutrin SR) Active Sertraline HCl 100 MG Take 200 mg 0 Oral Tablet (ZOLOFT) by mouth daily Active Acetaminophen 325 MG Oral Take 650 mg 0 Tablet by mouth every 6 (six) hours as needed for Pain Active Naproxen Sodium 220 MG Take by mouth 0 Oral Capsule (Aleve) Active Pseudoephedrine HCl 30 MG Take 30 mg by 0 Oral Tablet (SUDAFED) mouth every 4 (four) hours as needed for Congestion Active Loratadine 10 MG Oral Take 10 mg by 0 Tablet (CLARITIN) mouth as needed Active Pravastatin Sodium 20 MG Take 20 mg by 0 Oral Tablet (PRAVACHOL) mouth daily 08/04/2021 Active Pantoprazole Sodium 40 MG Take 1 tablet 30 tablet 11 Oral Tablet Delayed by mouth 1 Release (Protonix) daily Active Vitamin D Take 1 4 capsule 3 (Ergocalciferol) 1.25 MG capsule by 1 (68278 UT) Oral Capsule mouth every 7 (ERGOCALCIFEROL) (seven) days Active hydrOXYzine HCl 25 MG 0 Oral Tablet (ATARAX) 1 Active Bariatric Fusion Oral Chew 1 tablet 0 Tablet Chewable by Mouth daily documented as of this encounter (statuses as of 01/05/2021) Active Problems Problem Noted Date Anemia 08/05/2020 Overview: Formatting of this note might be differ ent from the original. Formatting of this note might be differ ent from the original. with fibroids and menses, better since IUD with fibroids and menses, better since IUD Arthritis 08/05/2020 Recurrent UTI 08/05/2020 Overview: Formatting of this note might be differ ent from the original. Formatting of this note might be differ ent from the original. since a child since a child Uterine leiomyoma 08/05/2020 Obesity 01/15/2020 Prediabetes 01/15/2020 Cervical radiculitis 05/01/2014 Allergic rhinitis 09/06/2013 Attention deficit disorder 09/06/2013 Hypercholesterolemia 05/26/2012 Asthma 02/25/2011 Migraine headache 02/25/2011 Overview: Formatting of this note might be differ ent from the original. Formatting of this note might be differ ent from the original. with aura with aura IUD (intrauterine device) in place 02/25/2011 Overview: Formatting of this note might be differ ent from the original. Formatting of this note might be differ ent from the original. Mirena IUD placed 04/2009, removed Mirena replaced 05/03/14 Mirena IUD placed 04/2009, removed Mirena replaced 05/03/14 documented as of this encounter (statuses as of 01/05/2021) Social History Date Tobacco Use Types Packs/Day Years Used Never Smoker Smokeless Tobacco: Never Used Comments Alcohol Use Standard Drinks/Week sporatic. 1-2 a month at most Yes 0 (1 standard drink = 0.6 o z pure alcohol) Alcohol Habits Answer Date Recorded How often do you have a drink containing alcohol? Monthly or less 07/08/2020 How many drinks containing alcohol do you have on 1 or 2 07/08/2020 a typical day when you are drinking? How often do you have six or more drinks on one Not asked 07/08/2020 occasion? Sex Assigned at Date Recorded Not on file Travel End Travel History Travel Start 12/17/2020 [place] 11/30/2020 Date Recorded COVID-19 Exposure Response 12/29/2020 6:59 AM EDT In the last month, have you been in contact with No / Unsure someone who was confirmed or suspected to have Coronavirus / COVID-19? documented as of this encounter Last Filed Vital Signs Reading Time Taken Comments Vital Sign - - Blood Pressure - - Pulse - - Temperature - - Respiratory Rate - - Oxygen Saturation - - Inhaled Oxygen Concentration 103.9 kg (229 lb) 01/05/2021 12:45 PM EDT Weight - - Height 38.11 10/16/2020 11:22 AM EDT Body Mass Index documented in this encounter Progress Notes * Raquel Castillo NP - 01/05/2021 1:00 PM EDT BARIATRIC SURGERY FOLLOW-UP CLINIC NOTE 01/05/2021 This is a tele-medical visit. The patient was informed of the risks including se curity breach, technological failure, inability to perform a comprehensive physi zachary exam which could delay or prevent an accurate diagnosis, and potential compl ications from treatment decisions rendered over a telemedical platform. The wendy ent understands and consented to the use of tele-health services. The service was provided by means of an audio/video telecommunication. Time spent on this evaluation today: 20 minutes CHIEF COMPLAINT: Visit # 5th for medical supervised weight loss HPI: Katya Sam is a 40 y.o. female with PMH significant for migraine, asthma, ut erine leiomyoma, HLD, pre-diabetes, anemia, arthritis, HTN, PIETRO, obesity, who is here for follow up and further discussion of metabolic and bariatric surgery. Jennifer layton was originally referred here for long history of obesity and related issu es , and reports excessive weight since early adulthood . Katya Sam attempt ed Radha Fulton, WW, low calorie, slim fast, OTC supplements diets and working wi th RD with non sustained max results of 20 lbs. Alternatives to surgery were wer e discussed with patient, including non-surgical weight loss plans. No endocrine or other medical causes of obesity were noted. Significant social and medical issues previously discussed include : PIETRO, iron d eficiency anemia, diarrhea since cholecystectomy, GERD (food gets stuck). She us es steroids for asthma occasionally. She has strong family hx of cardiac disease Significant surgical history includes:cholecysttectomy, myomectomy, c section. Since last visit, Katya Sam Has been scheduled for hysterectomy this week. She reports continues use of CPAP ,but does not have updated report. She is nerv ous about surgery and has not been strict on her diet and reports gaining a few pounds. She reports skipping lunch due to being busy with toddler . She eats 2- 3 snacks a day (cheese, almonds). She reports 4-6 loose stools a day (always aft er meal) and necessity to drink with meals due to food being stuck otherwise. U GI was done and showed only small hiatal hernia, no stricture. Patient reports following difficulties with not skipping meals and not drinking with meals even if she chews her food to mushy consistency. Bariatric and metabolic surgery plan 1. Original appointment on 07/08/[address] Hendrickson. 2. Plan for Sleeve vs RYGB surgery with Dr. Hendrickson. 3. Steps to be addressed by patient through pre-surgical pathway include: Info s ession , Initial nutritional consult with RD , Support group at least one time , VIDEO, Letter of Medical Necessity from PCP, nutritional and exercise log, foll ow up visit with RD. 4. Psychological evaluation results: good candidate 5. Initial labs and EKG - obtained . 6. Sleep study or pulmonary referral: CPAP. 7. Weight: Reports gaining 2 lbs Last weight on 08/07/2020 was 227 lbs BMI 37.28 Initial weight : 227 lbs BMI 37.28 IBW: 150 lbs EBW: 77 lbs Pre-operative weight loss goal: 20% EBW or 15 lbs 8. Addressed risk factors: Multivitamins started Smoking:none NSAIDs use: ?stopping ETOH use: none Steroids use: occasional 9. CPAP compliance: need 10. EGD with H. Pylori bx need 11. Steps to be completed once patient deemed ready for surgery: Clearance requested and obtained: cardiac done H&P visit and consent Liquid diet to be started 2 weeks pre-op Pre-op meds ordered at the pre-op appointment. Patient Active Problem List Diagnosis Allergic rhinitis Anemia Arthritis Asthma Attention deficit disorder Cervical radiculitis Hypercholesterolemia Migraine headache IUD (intrauterine device) in place Obesity Recurrent UTI Uterine leiomyoma Prediabetes Current Outpatient Medications: Acetaminophen 325 MG Oral Tablet, Take 650 mg by mouth every 6 (six) sai rs as needed for Pain, Disp: , Rfl: Albuterol Sulfate HFA 108 (90 Base) MCG/ACT Inhalation Aerosol Solution (PROVENTIL HFA), Inhale 2 puffs into the lungs every 4 (four) hours as needed f or Wheezing, Disp: , Rfl: Bariatric Fusion Oral Tablet Chewable, Chew 1 tablet by Mouth daily, Dis p: , Rfl: buPROPion HCl ER (SR) 150 MG Oral Tablet Extended Release 12 Hour (Wellb utrin SR), Take 150 mg by mouth every morning , Disp: , Rfl: hydrOXYzine HCl 25 MG Oral Tablet (ATARAX), , Disp: , Rfl: Loratadine 10 MG Oral Tablet (CLARITIN), Take 10 mg by mouth as needed , Disp: , Rfl: montelukast (SINGULAIR) 10 MG tablet, 10 mg nightly , Disp: , Rfl: Pantoprazole Sodium 40 MG Oral Tablet Delayed Release (Protonix), Take 1 tablet by mouth daily, Disp: 30 tablet, Rfl: 11 Pravastatin Sodium 20 MG Oral Tablet (PRAVACHOL), Take 20 mg by mouth da kimberley, Disp: , Rfl: Pseudoephedrine HCl 30 MG Oral Tablet (SUDAFED), Take 30 mg by mouth aj ry 4 (four) hours as needed for Congestion, Disp: , Rfl: Sertraline HCl 100 MG Oral Tablet (ZOLOFT), Take 200 mg by mouth daily, Disp: , Rfl: Vitamin D (Ergocalciferol) 1.25 MG (48451 UT) Oral Capsule (ERGOCALCIFER OL), Take 1 capsule by mouth every 7 (seven) days, Disp: 4 capsule, Rfl: 3 Naproxen Sodium 220 MG Oral Capsule (Aleve), Take by mouth, Disp: , Rfl: Past Medical History: Diagnosis Date Anemia Anxiety Arthritis Asthma Depression GERD (gastroesophageal reflux disease) Headache High cholesterol High cholesterol Low back pain Panic attacks PTSD (post-traumatic stress disorder) Sinus infection MANISHA (stress urinary incontinence, female) History reviewed. No pertinent family history. Social History Socioeconomic History Marital status: Spouse name: Not on file Number of children: Not on file Years of education: Not on file Highest education level: Not on file Occupational History Not on file Tobacco Use Smoking status: Never Smoker Smokeless tobacco: Never Used Vaping Use Vaping Use: Never used Substance and Sexual Activity Alcohol use: Yes Comment: sporatic. 1-2 a month at most Drug use: Never Sexual activity: Not on file Other Topics Concern Not on file Social History Narrative Not on file Social Determinants of Health Financial Resource Strain: Difficulty of Paying Living Expenses: Food Insecurity: Worried About Running Out of Food in the Last Year: Ran Out of Food in the Last Year: Transportation Needs: Lack of Transportation (Medical): Lack of Transportation (Non-Medical): Physical Activity: Days of Exercise per Week: Minutes of Exercise per Session: Stress: Feeling of Stress : Social Connections: Frequency of Communication with Friends and Family: Frequency of Social Gatherings with Friends and Family: Attends Scientologist Services: Active Member of Clubs or Organizations: Attends Club or Organization Meetings: Marital Status: Intimate Partner Violence: Fear of Current or Ex-Partner: Emotionally Abused: Physically Abused: Sexually Abused: REVIEW OF SYSTEMS: negative unless noted in H&P above PHYSICAL EXAMINATION: Visit Vitals Wt 103.9 kg (229 lb) LMP 01/05/2021 (LMP Unknown) BMI 38.11 kg/m Body surface area is 2.18 meters squared. Last Recorded Weight 01/05/21 103.9 kg (229 lb) 01/05/21 103.9 kg (229 lb) 10/16/20 103 kg (227 lb) GENERAL: Morbidly obese individual in no acute distress ASSESSMENT: Katya Sam is a 40 y.o. female is here for 5 appointment for metabolic and ba riatric surgery. Difficulties and concerns addressed at this appointment included: patient is naomi eduled for hysterectomy this week. Due to stress, she gained a few pounds. She i s unable to avoid drinking with meals due to food being stuck (no stricture on U GI).. PLAN: 1. Weight loss pre-surgical: The current diet and exercise regimens were review ed in clinic, including protein and average fluid intake. Recommendations for c ontinued safe weight loss, health and nutrition were discussed in detail. The pa linda was encouraged to consume 3 protein-based meals, focus on lean proteins , measure portions, decrease carbohydrate consumption and increase fiber/veg intak e, encouraged increased sugar-free water intake, at least 64oz per day, calorie tracking - either food journal or syeda ([employer], [employer]), and increase activity level to minimum 30 minutes of moderate exercise 5x per week. 2. Based on the pre-operative plan, following steps recommended before next visi t: continue diet modification. EGD and PH study (?) to be scheduled after recove ry from hysterectomy and at least one CPAP report. She would need in person foll ow up (only July one was in person) to evaluate weight loss progress. 3. Other issues addressed at today's appointment included: she may benefit from cholestyramine trial as she reports her diarrhea started after cholecystectomy - will discuss with Dr. Hendrickson on when should be started. 4. A return appointment will be scheduled in 1 month for her next medical weight loss visit 5. Patient is encouraged to call the clinic with any questions or concerns. Wendy ent demonstrates understanding, is amenable to the outlined plan, and there were no barriers to education today. documented in this encounter Nursing Notes * Heather Landa RN - 01/05/2021 1:00 PM EDT 01/05/2021: Katya Sam Wt Readings from Last 3 Encounters: 01/05/21 103.9 kg (229 lb) 10/16/20 103 kg (227 lb) 09/02/20 102.5 kg (226 lb) Vitals: 01/05/21 1245 Weight: 103.9 kg (229 lb) Bariatric Pipeline Intends: Leandra-en-Y Gastric bypassversus the Sleeve Gastrectomy We discussed the increased risk of RYGB with iron-deficiency anemia as well as m arginal ulcer formation given her need for intermittent steroids for her asthma exacerbations. On the other hand, Sleeve Gastrectomy has the risk of worsening h er GERD symptoms, for which she states are pretty significant despite not taking any daily medications in the past. Insurance:Pol[employer] PCP:Ld Weston 09/02- pt is trying to wean off nsaids Labs (14) -08/08/20 , missing PTT - recently done prior to hysterectromy surg cholo (01/05/2021) Serum Norberto -never a smoker UA -08/08/20 EK08/05/20; new 11/26/2020 NORMAL SINUS RHYTHM PROLONGED QTC ABNORMAL ECG NO PREVIOUS ECGS AVAILABLE LMN - 11/06/2020 Psych Eval -08/13/20 RKA "good candidate" Pulm Eval - PIETRO/CPAP Sleep St -diagnosed in February 2020 CPAP Comp -need,pt aware will need to send in 3 month report - reminded (01/05/2021) (occult gastroesophageal disease, including severity of GERD) EGD/H.pylori -DR Chapa order after card cl & cpap compliance UGI-scanned in 09/02 -called to have it pushed in pacs-(09/02) PH study-Needs to be ordered SG -11/10/2020 NC -09/08/2020 PCP Cl - ([id number]) request placed when surgery is ordered H&P (PT,PTT,CBC w/ diff, CMP, U/A,Type & Screen)- called pt prior to H&P visit 4hr fast labs yes __ no ___ Video-[email or web address] Mailed info sheet _X_ Handed info sheet in office __ NSAID's/Smoking/ETOH/Steroids-pt education done possible ulcer/perf risk _X_ Referral/Clearances: Pulm -na Cards -need,Yassine Muhammad MD, ptstates they sent in clearance - Per p atient its been faxed over, and that service released her as patient. (01/05/2021 ) Gasrto -na Nephro -na Hemat -na Rheum -na Neuro -na Endocr -na Other-na PIETRO on CPAP- diagnosed in February 2020 -Iron-deficiencyanemia - was on PO Iron tablets previously but last labs wer e wnl so PCP stopped prescription -HLD on statin -Pre- diabetes - diet controlled -Migraines: Intermittently takes NSAIDs for migraines, will get them every 2 weeks or so and trying to transition to Tylenol. Used to see neurologist in the past, no longer seeing -Anxiety and depression -seesPsychiatrist Ashley Gill -Diarrhea after eating? - diagnosed with "dumping syndrome" and/or IBS -GERD symptoms - gets symptoms daily for years ever since she was . Tums makes her nauseous, she will drink milk to make the symptoms better. Never tried H2 debbie or PPI therapy. Surgical history: Laparoscopic myomectomy 1995 Laparoscopic cholecystectomy 2004 Section 2019 Hysterectomy - 01/08/2021 documented in this encounter Plan of Treatment Health Maintenance Due Date Last Done Comments MMR Vaccines (1 of - 01/19/1980 Standard series) Varicella Vaccines (1 of 01/19/1980 2 - 2-dose childhood series) Pneumococcal Vaccine: 65+ 1985 Years (1 of 2 - PPSV23) Pneumococcal Vaccine: 1986 Pediatrics (0 to 5 Years) and At-Risk Patients (6 to 64 Years) (1 of 2 - PPSV23) COVID-19 Vaccine (1) 1991 HIV Screening 01/19/1992 Cervical Cancer Screening 01/19/2000 5 years DTaP,Tdap,and Td Vaccines 08/05/2014 07/08/2014 (2 - Td or Tdap) Influenza Vaccine 01/16/2021 01/28/2015, 01/16/2013 HIB Vaccines Aged Out No longer eligible based on patient's age to complete this topic Hepatitis A Vaccines Aged Out No longer eligibl e based on patient's age to complete this topic Hepatitis B Vaccines Aged Out No longer eligibl e based on patient's age to complete this topic IPV Vaccines Aged Out No longer eligible based on patient's age to complete this topic documented as of this encounter Results Not on filedocumented in this encounter Visit Diagnoses Diagnosis Class 2 severe obesity due to excess ca lories with serious comorbidity and body mass index (BMI) of 37.0 to 37.9 in adult - Primary Anemia, unspecified type Chronic GERD Diarrhea, unspecified type PIETRO (obstructive sleep apnea) Obstructive sleep apnea (adult) (pediat geraldine) documented in this encounter
--- OUTSIDE RECORDS SUMMARY | 2021-02-25 19:56 | CCD ---
Author Author [facility] Organization [facility] Address Unknown Phone Unavailable Care Team Providers Care Advertising Account Manager Name Role Phone Maring, Pedrito PA Unavailable Unavailable Maring, Pedrito PA Unavailable Unavailable Maring, Pedrito PA Unavailable Unavailable Maring, Pedrito PA Unavailable Unavailable Maring, Pedrito PA Unavailable Unavailable Maring, Pedrito PA Unavailable Unavailable Maring, Pedrito PA Unavailable Unavailable Maring, Pedrito PA Unavailable Unavailable Maring, Pedrito PA Unavailable Unavailable Maring, Pedrito PA Unavailable Unavailable Maring, Pedrito PA Unavailable Unavailable Maring, Pedrito PA Unavailable Unavailable Maring, Pedrito PA Unavailable Unavailable Maring, Pedrito PA Unavailable Unavailable Maring, Pedrito PA Unavailable Unavailable Maring, Pedrito PA Unavailable Unavailable Casey RAE Unavailable Unavailable Malorie MORENO Unavailable Unavailable Rafita Moreno Unavailable [phone] Rafita Moreno Unavailable [phone] Malorie LAUREN Unavailable Unavailable JAYLA, V CEFERINO Unavailable Unavailable JAYLA, V CEFERINO Unavailable Unavailable JAYLA, V CEFERINO Unavailable Unavailable JAYLA, V CEFERINO Unavailable Unavailable JAYLA, V CEFERINO Unavailable Unavailable JAYLA, V CEFERINO Unavailable Unavailable JAYLA, V CEFERINO Unavailable Unavailable JAYLA, V CEFERINO Unavailable Unavailable JAYLA, V CEFERINO Unavailable Unavailable JAYAL, V CEFERINO Unavailable Unavailable JAYLA, V CEFERINO Unavailable Unavailable JAYLA, V CEFERINO Unavailable Unavailable JAYLA, V CEFERINO Unavailable Unavailable JAYLA, V CEFERINO Unavailable Unavailable JAYLA, V CEFERINO Unavailable Unavailable JAYLA, V CEFERINO Unavailable Unavailable JAYLA, V CEFERINO Unavailable Unavailable JAYLA, V CEFERINO Unavailable Unavailable JAYLA, V CEFERINO Unavailable Unavailable JAYLA, V CEFERINO Unavailable Unavailable JAYLA, V CEFERINO Unavailable Unavailable JAYLA, V CEFERINO Unavailable Unavailable JAYLA, V CEFERINO Unavailable Unavailable JAYLA, V ECFERINO Unavailable Unavailable JAYLA, V CEFERINO Unavailable Unavailable JAYLA, V CEFERINO Unavailable Unavailable JAYLA, V CEFERINO Unavailable Unavailable JAYLA, V CEFERINO Unavailable Unavailable JAYLA, V CEFERINO Unavailable Unavailable JAYLA, V CEFERINO Unavailable Unavailable Rabach, A Josiah Unavailable Rabach, A Josiah Unavailable Rabach, A Josiah Unavailable Rabach, A Josiah Unavailable Rabach, A Josiah Unavailable Rabach, A Josiah Unavailable Rabach, A Josiah Unavailable Rabach, A Josiah Unavailable Rabach, A Josiah Unavailable Rabach, A Josiah Unavailable Rabach, A Josiah Unavailable ANTECOL, Ranjit DONG MD Unavailable Unavailable ANTECOL, Ranjit DONG MD Unavailable Unavailable ANTECOL, Ranjit DONG MD Unavailable Unavailable ANTECOL, Ranjit DONG MD Unavailable Unavailable ANTECOL, Ranjit DONG MD Unavailable Unavailable ANTECOL, Ranjit DONG MD Unavailable Unavailable ANTECOL, Ranjit DONG MD Unavailable Unavailable ANTECOL, Ranjit DONG MD Unavailable Unavailable ANTECOL, Ranjit DONG MD Unavailable Unavailable ANTECOL, Ranjit DONG MD Unavailable Unavailable ANTECOL, Ranjit DONG MD Unavailable Unavailable ANTECOL, Ranjit DONG MD Unavailable Unavailable ANTECOL, Ranjit DONG MD Unavailable Unavailable ANTECOL, Ranjit DONG MD Unavailable Unavailable ANTECOL, Ranjit DONG MD Unavailable Unavailable ANTECOL, Ranjit DONG MD Unavailable Unavailable ANTECOL, Ranjit DONG MD Unavailable Unavailable ANTECOL, Ranjit DONG MD Unavailable Unavailable ANTECOL, Ranjit DONG MD Unavailable Unavailable ANTECOL, Ranjit DONG MD Unavailable Unavailable ANTECOL, Ranjit DONG MD Unavailable Unavailable ANTECOL, Ranjit DONG MD Unavailable Unavailable ANTECOL, Ranjit DONG MD Unavailable Unavailable ANTECOL, Ranjit DONG MD Unavailable Unavailable ANTECOL, Ranjit DONG MD Unavailable Unavailable ANTECOL, Ranjit DONG MD Unavailable Unavailable ANTECOL, Ranjit DONG MD Unavailable Unavailable ANTECOL, Ranjit DONG MD Unavailable Unavailable ANTECOL, Ranjit DONG MD Unavailable Unavailable ANTECOL, Ranjit DONG MD Unavailable Unavailable ANTECOL, Ranjit DONG MD Unavailable Unavailable ANTECOL, Ranjit DONG MD Unavailable Unavailable ANTECOL, Ranjit DONG MD Unavailable Unavailable ANTECOL, Ranjit DONG MD Unavailable Unavailable ANTECOL, Ranjit DONG MD Unavailable Unavailable ANTECOL, Ranjit DONG MD Unavailable Unavailable ANTECOL, Ranjit DONG MD Unavailable Unavailable ANTECOL, Ranjit DONG MD Unavailable Unavailable ANTECOL, Ranjit DONG MD Unavailable Unavailable ANTECOL, Ranjit DONG MD Unavailable Unavailable ANTECOL, Ranjit DONG MD Unavailable Unavailable ANTECOL, Ranjit DONG MD Unavailable Unavailable ANTECOL, Ranjit DONG MD Unavailable Unavailable ANTECOL, Ranjit DONG MD Unavailable Unavailable ANTECOL, Ranjit DONG MD Unavailable Unavailable ANTECOL, Ranjit DONG MD Unavailable Unavailable ANTECOL, Ranjit DONG MD Unavailable Unavailable ANTECOL, Ranjit DONG MD Unavailable Unavailable ANTECOL, Ranjit DONG MD Unavailable Unavailable ANTECOL, Ranjit DONG MD Unavailable Unavailable ANTECOL, Ranjit DONG MD Unavailable Unavailable ANTECOL, Ranjit DONG MD Unavailable Unavailable ANTECOL, Ranjit DONG MD Unavailable Unavailable ANTECOL, Ranjit DONG MD Unavailable Unavailable DESJARLAIS, BRUCE BEAD WRAPPER Unavailable Unavailable DESJARLAIS, BRUCE BEAD WRAPPER Unavailable Unavailable DESJARLAIS, BRUCE BEAD WRAPPER Unavailable Unavailable DESJARLAIS, BRUCE BEAD WRAPPER Unavailable Unavailable DESJARLAIS, BRUCE BEAD WRAPPER Unavailable Unavailable DESJARLAIS, BRUCE BEAD WRAPPER Unavailable Unavailable DESJARLAIS, BRUCE BEAD WRAPPER Unavailable Unavailable DESJARLAIS, BRUCE BEAD WRAPPER Unavailable Unavailable DESJARLAIS, BRUCE BEAD WRAPPER Unavailable Unavailable DESJARLAIS, BRUCE BEAD WRAPPER Unavailable Unavailable Re-disclosure Warning The records that you are about to access may contain information from federally-assisted alcohol or drug abuse programs. If such information is present, then the following federally mandated warning applies: This information has been disclosed to you from records protected by federal confidentiality rules (42 CFR part 2). The federal rules prohibit you from making any further disclosure of this information unless further disclosure is expressly permitted by the written consent of the person to whom it pertains or as otherwise permitted by 42 CFR part 2. A general authorization for the release of medical or other information is NOT sufficient for this purpose. The Federal rules restrict any use of the information to criminally investigate or prosecute any alcohol or drug abuse patient.The records that you are about to access may contain highly sensitive health information, the redisclosure of which is protected by Article 27-F of the [facility] Public Health law. If you continue you may have access to information: Regarding HIV / AIDS; Provided by facilities licensed or operated by the [facility] Office of Mental Health; or Provided by the [facility] Office for People With Developmental Disabilities. If such information is present, then the following [facility] mandated warning applies: This information has been disclosed to you from confidential records which are protected by state law. State law prohibits you from making any further disclosure of this information without the specific written consent of the person to whom it pertains, or as otherwise permitted by law. Any unauthorized further disclosure in violation of state law may result in a fine or usp sentence or both. A general authorization for the release of medical or other information is NOT sufficient authorization for further disc losure. Allergies and Adverse Reactions Type Description Substance Reaction Status Data Source(s ) OTHER OTHER [facility] Encounters Encounter Providers Location Date Indications Data Source(s ) Outpatient Attender: CEFERINO DICKERSON [id number] 02/23/2021 12:00:00 A [facility] Outpatient Attender: BRUCE LINDSAY NP 02/11/2021 08: 19:00 AM [facility] Outpatient 02/02/2021 12:00:00 AM [facility] Outpatient 01/19/2021 12:00:00 AM [facility] Outpatient Attender: CEFERINO DICKERSON [id number] 01/05/2021 12:00:00 A [facility] Outpatient Attender: RAFITA Jay: Rafita Moreno 6 [id number] 01/05/2021 12:00:00 AM [facility] Outpatient Attender: Josiah Bargerender: JOSIAH LAUREN 01/01/2021 12:00:00 AM [facility] Outpatient Attender: RAFITA Jay: Rafita Moreno 01/01/2021 12:00:00 AM [facility] Outpatient Attender: BRUCE LINDSAY NP 12/26/2020 09: 03:00 AM [facility] Outpatient Attender: IKER JOHNSON MD Main Office 11/26/2020 11:00:00 AM [facility] Outpatient 11/10/2020 12:00:00 AM EDT [facility] Outpatient Attender: Josiah LaurenAttender: JOSIAH LAUREN 6 [id number] 10/16/2020 12:00:00 AM EDT [facility] Outpatient Attender: RAFITA MORENO 10/16/2020 12:00:00 AM EDT [facility] Outpatient 09/08/2020 12:00:00 AM [facility] Outpatient Attender: LIZ RAEAttender: ARFITA MORENO [id number] 09/02/2020 12:00:00 AM EDT [facility] Outpatient Attender: JOSIAH LAUREN [id number] 09/02/2020 12:00 :00 AM EDT Bariatric surgery [facility] Bariatric surgery status Outpatient Attender: RAFITA MORENO [id number] 08/07/2020 12:00 :00 AM EDT Morbid (severe) obesity due to excess calories [facility] Morbid (severe) obesity due to excess ca lories Outpatient Attender: JOSIAH LAURENReferrer: JOSIAH Church [facility] 08/05/2020 10:22:54 AM [facility] Outpatient Attender: JOSIAH LAUREN [id number] 08/06/19 12:00:00 AM EDT - 08/05/2020 10:12:31 AM EDT Bariatric surgery [facility] Bariatric surgery status Outpatient Attender: IKER JOHNSON MD Main Office 08/04/2020 08:00:00 AM EDT [facility] ([facility]) Outpatient Attender: JOSIAH LAUREN [id number] 07/08/2020 12:00 :00 AM EDT Dietary counseling and surveillance [facility] Dietary counseling and surveillance Outpatient Attender: RAFITA MORENO [id number] 06/20/2020 12:00:00 AM [facility] Outpatient Attender: Pedrito CAST 06/13/19 08:41:58 AM EST - 06/13/2020 09:27:55 AM EST [facility] ([facility] ) Outpatient Attender: IKER JOHNSON MD Main Office 05/13/2020 11:15:00 AM EST [facility] ([facility]) Outpatient Attender: BRUCE LINDSAY NP 03/20/2020 02: 00:00 PM [facility] Outpatient Attender: IKER JOHNSON MD Main Office 01/15/2020 12:30:00 PM EDT [facility] ([facility]) Immunizations Vaccine Date Status Description Data Source(s) COVID-19 VACCINE Pfizer 06/17/2020 12:00:00 AM EST completed [facility] Vaccine Series Complete: NOThis Data was Submitted to [facility] [employer]. Medications Medication Brand Name Start Date Product Form Dose Route Admi nistrative Instructions Pharmacy Instructions Status Indications Reaction Description Data Source(s) Ergocalciferol 13703 UNT Oral Capsule Vitamin D (Ergocalcife rol) 11/25/2020 12:00:00 AM EDT ORAL active M [facility] ([facility]) Multi Vitamin 11/25/2020 12:00:00 AM EDT ORAL acti ve [facility] ([facility]) Hydroxyzine Hydrochloride 25 MG Oral Tab let hydrOXYzine HCl 25 MG Oral Tablet (ATARAX) hydrOXYzine HCl 25 MG Oral Tablet (ATARAX) 09/24/2020 12:00: 00 AM EDT active [facility] Ergocalciferol 39538 UNT Oral Capsule Vi tamin D (Ergocalciferol) 1.25 MG (64050 UT) Oral Capsule (ERGOCALCIFEROL) Vitamin D (Ergocalciferol) 1.25 MG (5000 0 UT) Oral Capsule (ERGOCALCIFEROL) 09/02/2020 12:00:00 AM EDT 38657 U Ora l active Take 1 capsule by mouth every 7 (seven) days [facility] pantoprazole 40 MG Delayed Release Oral Tablet Pantoprazole Sodium 40 MG Oral Tablet Delayed Release (Protonix) Pantoprazole Sodium 40 MG Oral Tablet De layed Release (Protonix) 08/05/2020 12:00:00 AM EDT 40 mg Oral active Take 1 tablet by mouth daily [facility] Pravastatin Sodium 20 MG Oral Tablet Pravastatin Sodium 12:00:00 AM EST ORAL active [facility] Sertraline 100 MG Oral Tablet Sertraline HCL 01/14/2020 12:00:00 AM E DT ORAL active [facility] ([facility] Dicyclomine Hydrochloride 10 MG Oral Capsule Dicyclomine HCL 01/14/2020 12:00:00 AM EDT ORAL active [facility] ([facility] Loratadine 10 MG Oral Tablet Loratadine 01/14/2020 12:00:00 AM EDT ORAL active [facility] ([facility]) Bupropion Hydrochloride ER (SR) Bupropion Hydrochloride ER ( SR) 01/14/2020 12:00:00 AM EDT ORAL active [facility] ([facility]) ferrous sulfate 325 MG Delayed Release Oral Tablet Ferrous S ulfate 01/14/2020 12:00:00 AM EDT ORAL active [facility] ([facility]) Diclofenac Sodium 75 MG Delayed Release Oral Tablet Diclofen ac Sodium 01/14/2020 12:00:00 AM EDT ORAL active [facility] ([facility]) Hydroxyzine Hydrochloride 25 MG Oral Tablet Hydroxyzine HCL 01/13/2020 12:00:00 AM EDT ORAL active [facility] ([facility] montelukast 10 MG Oral Tablet Montelukast Sodium 01/07/2020 12:00:00 AM EDT ORAL active [facility] ([facility] Vit-Fe Fumarate-FA (MULTIVITAMIN ) 27-0.8 M G TABS [id number] 01/04/2018 12:00:00 AM EDT [facility] Magnesium Oxide 400 MG Oral Tablet Magne sium Oxide (MAG-OX) 400 (240 Mg) MG tablet Magnesium Oxide (MAG-OX) 400 (240 Mg) MG tablet 2017 12:00:00 AM EDT [facility] Riboflavin 100 MG Oral Tablet Vitamin B-2 (RIBOFLAVIN) 100 MG TABS Vitamin B-2 (RIBOFLAVIN) 100 MG TABS 12/27/2017 12:00:00 AM EDT [facility] Ferrous Sulfate (IRON PO) 65 mg Oral aborte d Take 65 mg by mouth Two Times Daily [facility] Ibuprofen 200 MG Oral Tablet Ibuprofen 200 MG Oral Tab let (MOTRIN) Ibuprofen 200 MG Oral Tablet (MOTRIN) 200 mg Oral aborted Take 200 mg by mouth every 6 (six) hours as needed for Pain [facility] Insurance Providers Payer name Policy type / Coverage type Policy ID Covered alliance party ID Covered alliance party's relationship to yung Policy Yung Plan Information [place] [employer] [id number] U [id number] Self [id number] Spouse [id number] Spouse [id number] RPR- Needs Payer Match [id number] Spouse [id number] U [id number] Self [id number] [facility] [id number] SPO [id number] [facility] [employer] [facility] [id number] [id number] [facility] HUMAN - [id number] [id number] [facility] REG O [id number] S [id number] [facility] [id number] SPO [id number] ANSI-Not a Secondary Insurance [id number] [facility] [id number] 2 [id number] [facility] MANAGEMENT [facility] [id number] Problems, Conditions, and Diagnoses Code Display Name Description Problem Type Effective Dates Data Source(s) F33.0 Major depressive disorder, recurrent, mi ld MAJOR DEPRESSIVE DISORDER, RECURRENT, MILD Diagnosis 12/26/2020 09:03:00 AM [facility] F41.1 Generalized anxiety disorder GENERALIZED ANXIETY DISOR ARIK Diagnosis 12/26/2020 09:03:00 AM [facility] F32.9 Major depressive disorder, single episod e, unspecified Major depressive disorder, single episode, unspecified Diagnosis 09/02/2020 08:17:56 AM [facility] F41.9 Anxiety disorder, unspecified Anxiety disorder, unspec ified Diagnosis 09/02/2020 08:17:56 AM [facility] E78.5 Hyperlipidemia, unspecified Hyperlipidemia, unspecifie d Diagnosis 09/02/2020 08:17:56 AM 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 Z71.3 Dietary counseling and surveillance Dietary coun seling and surveillance Diagnosis 08/07/2020 08:11:52 AM [facility] D50.9 Iron deficiency anemia, unspecified Iron deficie ncy anemia, unspecified Diagnosis 08/05/2020 10:22:25 AM [facility] G43.909 Migraine, unspecified, not intractable, without status migrainosus Migraine, unspecified, not intractable, without status migrainosus Diagnosis 08/05/2020 10:22:25 AM [facility] J45.909 Unspecified asthma, uncomplicated Unspecified as thma, uncomplicated Diagnosis 08/05/2020 10:22:25 AM [facility] Z68.37 Body mass index (BMI) 37.0-37.9, adult B ella mass index (BMI) 37.0-37.9, adult Diagnosis 08/05/2020 10:22:25 AM [facility] E66.01 Morbid (severe) obesity due to excess ca lories Morbid (severe) obesity due to excess calories Diagnosis 08/05/2020 10:22:25 AM [facility] R73.03 Prediabetes Prediabetes Diagnosis 08/05/2020 10:22:25 AM [facility] K21.9 Gastro-esophageal reflux disease without esophagitis Gastro-esophageal reflux disease without esophagitis Diagnosis 08/05/2020 09:26:[address] [facility] Z68.38 Body mass index (BMI) 38.0-38.9, adult B ella mass index (BMI) 38.0-38.9, adult Diagnosis 08/05/2020 09:26:46 AM [facility] Z68.39 Body mass index (BMI) 39.0-39.9, adult B ella mass index (BMI) 39.0-39.9, adult Diagnosis 07/08/2020 08:15:00 AM EDT [facility] Z01.810 Preoperative cardiovascular examination Preoperative cardiovascular examination Problem 11/26/2020 12:00:00 AM EDT [facility] ([facility] Z71.3 Dietary management surveillance Dietary management casey veillance Problem 01/15/2020 12:00:00 AM EDT [facility] ([facility]) R73.03 Prediabetes Prediabetes Problem 01/15/2020 12:00:00 AM EDT [facility] ([facility]) E66.09 Obesity Obesity Problem 01/15/2020 12:00:00 AM ED T [facility] ([facility]) E78.00 Pure hypercholesterolemia Pure hypercholesterolemia Pr oblem 01/15/2020 12:00:00 AM EDT [facility] ([facility]) Surgeries/Procedures Procedure Description Date Indications Data Source(s) ECG ROUTINE ECG W/LEAST 12 LDS W/I&R 11/26/2020 12:00: 00 AM EDT [facility] ([facility]) OFFICE OUTPATIENT VISIT 25 MINUTES 11/26/2020 12:00:00 AM EDT [facility] ([facility]) MISC SCANNED ORDER <td>MISC SCANNED ORDER</td>< td></td><td>08/05/2020 10:55 AM EDT</td><td></td><td></td> 08/05/2020 10:55:51 AM EDT [facility] EKG 12-LEAD - CMAXX REPORT <td>EKG 12-LEAD - CMAXX REPORT</td><td></td><td>08/05/2020 10:30 AM EDT</td><td></td><td></td> 08/05/2020 10:30:00 AM [facility] EKG 12-LEAD - CMAXX REPORT <td>EKG 12-LEAD - CMAXX REPORT</td><td></td><td>08/05/2020 10:30 AM EDT</td><td></td><td></td> 08/05/2020 10:30:00 AM [facility] EKG 12-LEAD <td>EKG 12-LEAD</td><td>Rout ine</td><td>08/05/2020 10:30 AM EDT</td><td> Bariatric surgery status Class 2 severe obesity due to excess calories with serious comorbidity and body mass index (BMI) of 39.0 to 39.9 in adult</td><td> </td> 08/05/2020 10:30:00 AM EDT Class 2 severe obesity due to excess zachary ories with serious comorbidity and body mass index (BMI) of 39.0 to 39.9 in adultBariatric surgery status [facility] Class 2 severe obesity due to excess zachary ories with serious comorbidity and body mass index (BMI) of 39.0 to 39.9 in adult Bariatric surgery status EKG 12-LEAD <td>EKG 12-LEAD</td><td>Rout ine</td><td>08/05/2020 10:30 AM EDT</td><td></td><td></td> 08/05/2020 10:30:00 AM EDT [facility] OFFICE OUTPATIENT VISIT 15 MINUTES 08/04/2020 12:00:00 AM EDT [facility] ([facility]) ECG ROUTINE ECG W/LEAST 12 LDS W/I&R 01/15/2020 12:00: 00 AM EDT [facility] ([facility]) Results ID Date Data Source [id number] 02/23/2021 10:27:38 AM [facility] Name Value Range Interpretation Code Description Data Yolanda rce(s) Supporting Document(s) Progress Note [facility] EJVRSh7bNqHXMaGh41/QYVbpHYMnz5QtRIibPPo2MTvwUWOcH7IoGAG3iD2pEQF3XQqAFmEyFbNuUKY9 lbm [file] 8ZxpLgdu0r1PUeIYcWUHEJDRdkFkSIsKyGFWEkgR6KaYtN6FK/yUAUbJD85Tr/7pbg7h9dP++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/Zl5 +KDazaJYFs4Z8h9286mnJjE5ge++O5Q83U1obln23/ bLXxEaRnP17AtRPN8MjLHaWFm/BFFSqxMsOBMlj3yXgrQfQVxZTs13hOqZGcDKJvIemKKDEwlkfPRFRB iOE9pJ9qwTx0oTQ+qLn9wn9S3gJz72JcTp+8vv99yMxmwT0OVmIwMucvo/UzjOp7R+RxF/wlBfH06jmZ 87h66cb6vu0Av6c4uJwo0qEJ19Y4Q5821R6RKaBywW jbfcp1eZ6iHPqE+aYCTyfA4+hqCf1bqxccTd5uw0rpvcvKDWoQ7XEGZcP1Mbi0Smp2CHoKEiBYCfI47d Te+sROen58/WCKJh7PMseJ24tHb9L3endl2/nslnmebBHlrICWYffRSEeulAhboUcH2SdJs6Ygn0GCvk QRhlBGZyDI2ANEify3Ddf9hVHshnkvQTuiYfxjgAtj 1pqKpDHibu8IsMl89AYVC4sBZPhesc4gdDi/ct5ZjKdV+tr06XH0rcwGqnEhRzz5n5se7gsPvij8+2e3 3hrb/ad83bgtNj8O+c293cl/cMK3uQwQdLV2A2yz+W67zGW8dJ4yryWjgLP8CDX3dBFXJdNeZwGJMCPS RZrbXvKXsxvrBJuEslMsnX0QCzOhHnNP5VFXn9pgVH Xj0TMZf636ch6rhi8OA1LP8s/hQDlTC9AKHoGqCmeI5fO6Vpbmr1X4ahHg3jiL3MK7xKr4+ibThngeqq M6vAaWhNQpGVaM/Xf6zFVljkP2blzgnFsb90Z5un9XvPBVQzvXUUb4g0K5UoXEDAGChNMX1CBiQMMw4O BBIrogPkdtbrBnFZ6V9mbGgd99dczEQvfv58+sc9ZS VxypTToznWCZXKjIVAGU4zEP3SKVXqy/w1rGpHofbOlLi2+jn1wmGclZGeNVN0QxquJkUxFsrLkdZMrC zSnbXbWf0ZaAWqdFEueOJyMkxnWNBGf82Vr+9fNXX+1MDsEzn+J2sIlp8rQaNIZB2KozSx6klCQZM3N0 BaokF81qeua5saoFb7G1sTnVoTPVOEWtEHq7YJzK0p qh7KLfXeQ0wf3evXAWu2sZzw0lQKXAcQwXwVVtDoDDZBSqXGGGBtvFfZytYRoFJpHfoAeh+sb19xq6d9 W/or2n/IUGQkjEt3oPs9v6Xlp7BpoCP0p32L1pqYp392xt7x0sZ8ygzszuLfIoq0ujHJiSqKQ80KB8Yl qLjFXGOoM3/whsKSJzDEPJSJToEAAFUM1WdZyDWL59 [file] A+Josefina+JA1iqeoI/TpXpY/gN/CY+bxnmCC7Ob1Ma4uqe7/kZKz0E0LE3Re/efraín/C7+Bw+bhgFkRQ7Xl+gOv [file] AgICAgICAgICAgICAgICAgICAgICAgICAgICAgICAg QYQlKOJnAYBgGATfFPKnQJYnMOBtHTCbGSBtTBPdORHyRZGmERMeOYRfXHRbODNdJQSyCF8RPDUhNOTi ICAgICAgICAgICAgICAgICAgICAgICAgICAgICAgICAgICAgICAgICAgICAgICAgICAgICAgICAgICAg ICAgICAgICAgICAgICAgICAgICAgICAgICAgICAgIC LpNK9WLUJaRJEeJLEsCXMaGHVvMIOsCGEdMDAdLVWyDLQaCAMxVMFnGBBlYXEgJIQkTJFyWUJzSGYtRC IzSRYmAXZhLIZnPSZhJKSaXREuLOXbWQLxXGBoSDGlLVApBBGwPSXmUXPdFI2CLZQqVBRjEFEcLMHsJZ AgICAgICAgICAgICAgICAgICAgICAgICAgICAgICAg WCBtMPNdYEKsQPMdNHCdHMQcDHHzELPhPNWdUKFeHJBqVYSlMMFhMUAzHWEwSZFeUBSaOEUgCQ4DMMQi ICAgICAgICAgICAgICAgICAgICAgICAgICAgICAgICAgICAgICAgICAgICAgICAgICAgICAgICAgICAg ICAgICAgICAgICAgICAgICAgICAgICAgICAgICAgIC GsSTAtBV1GLRDrTFYsGKHsNMCyDJFbNMZgTUPmQJPsMDTwKTDaZYQtVRCfKKPoWWStARCzAOTnCAAhIB RsHEMnJLKgXDCmQKLqUDPgODBoKYWoYDNfEPDfZTPjHXHoUTIkEJLpLTRxEMHnYK9QJCHkJMQvWAVmYV AgICAgICAgICAgICAgICAgICAgICAgICAgICAgICAg JYLuXFBtPKRoCLZvHZXiAQExWWXfYYFaHJZmUYKwYYWcTMMaBPToLHGaDKUqMEMoYABcXVOrJQFoQN3J ICAgICAgICAgICAgICAgICAgICAgICAgICAgICAgICAgICAgICAgICAgICAgICAgICAgICAgICAgICAg ICAgICAgICAgICAgICAgICAgICAgICAgICAgICAgIC JfJUBvECUiOB4TLECsWKJbFDVhMLCaUWVhXUAiHSOjUMTnMCImSJTiFUVdNUUvQUKfYPDcMTObWXCaMG WsMJQcUNCbCNSeJWGvJLUhTCFrKFRsYHCnGCXgPGWwOFBdNXVcMFEiIEMkETFnSQOmFA0XBK20yNJyu6 F5IVGqQK4wejm/Yl8RPNeurxJsfYZoVU1APeAgQL5v id3GTdSiMI9lrb3LWSlBJgDoM1D3nVXzEJPwMPMBGcIpM50mOXobFf02IIyuEPNlReDpEDy7Kc2LDnEx I0akTWAnXcH7QCSfQiM8QUJqCsA8ZNThXpHbKANqYORwPSLvIBCRRH4YSeIxM3DnwD02MVRZHj7+DQpl mtKtSccJCkY8JWFwq6EpAVz0UW6YUGMrXbtdk6TuIo lpVORYCBsoWZ1QZIH5YGM0EHDaEh0NTOAhN514vhKuYR8WRi7QVpRgWA9yck4EWkmeYQSeDfcRIcq0PJ ijHV4RqXBvSGyKes2kceHojhMFi5VbbuJtrOLZNKHxlkPLA6jxXmCsSlspCmFmPSJeDZBpST0uBXXjKB U5BcKtGYKGHL8RJBSlMRTpwIEmPYEyRFKTQD2JEOpr TCI4SZEgkaLmzLKhHWveVA3NVRRkniExAsuwFAVWISs+Mf3RFA3jy5AxHIx3DYJxBR0awu6DXJaJXyLp J1B8gMQuW3B8OZunRo6VIUQnYMPiRtRaTHYRBIxcHK4GPJ8nsrE0LG7SxCPfLFShTQOigKQdHPx9W33k jVRqXSpyQF7IOJT+Kwabena+Du8GIBMlPQOmZHAwVdCdWG PIKoMhP2VwU9PFc6KrB1HnEW38kFzqjuWvRNnnBJ9DBB3dAHEbDCHKNQ8QhHKsjF0jmfKsPGLaMSVAQx MqM34vmKRzRDGhOSG3IQBhTk8OHXMdF1SubnDklCifkwUsGRFkFWULKX4RIPztthLbvSUagAafJU81pO mfGX5JJu9JItUtMH5sar0CwHSnKf8QBFT4HT5JQSEg JVJhFCVtGCK3LVJwZvAgMKgpAKVdYBBzSTS7SBOfZEDlDG4PNnIoWNHuKyO0VVOtESOgKVEthi6GIYLm BLN9UqTlBMSnDOMtIHDzPNpuQREuGMLcZCZ4HITyYQHaVY7VUsQiSYYiVNDgLSksRRTnWJDjdd7DRQBv QWUzIZR2ZJNvVZTjMLBgHTufIVKdOQZ5ImhjRDVsKB OsUS1GTrZqSGApSRr5UNBtBNXxGLHufj9TEBUdGXFgIAA7XbRnPIPfMNRqAJjcOMEuQGMrWfM8ZRAtDR AiIG6YPfZvQSJoIZM7XrpeAIRpUJNwht5FMECrYAHrMkn3XSUaBZMsTGQjNBcyYWNqIFG1MvL9ANVdPR MpCG6SGhGaZFHjBRH3NYHzERPoWLFlcb8UXDNsMHUg WbZnVFSjRFIaUTOhLDixNKAiMEF1QjUbGGPvQWAfZZ6IIrRqQKBxYXe7FJHqEBWhRIXohy1EAJHfNHUh NCs8AiPoSUUoBBLrCZqdENPrSVE1WXI2EABvYNSsEM7XUmOnSHTyEOtpIZUlQQAwNFZdud0XPFZeOYV0 PMGsEAJkKUSpYRXkCYlbBJJqZIVwUqB2OGLeBZGiFN 9ZCvYbDKRqBLC5AxktGWSvFQNlfr8AOXBtKJU4Niu5OMTzJFEtUNMsLHmzUIHbCDGxZYGgGFHgGPOcGQ 7GCxZlYRYeSCb9DCAvHJKfPGSgea7BMJCaCJF6QBQjZKVoIILaJUStNMuePJGrUFP1GxV1VURsAWXxGU 8VNdTfHNOqMRs3XuFiCCZuYTJkig4DNVIuYEI1KVse XkRkBLGrBUHeWDvaTNGsUOI2RDB7HPAaJSWlLE4DYiMjBPVcXHjuTqXpXRTxTEXalt8CMDKtNCO3ETAn RtHuEPLcZKFoLXyvDFBcBQFhBrQ0VYPbQKDlXS4XSrDrDEBeTjI4YTRmGCCcIUAtbz1KNRTuCGO2HXWi ExQbUAUpMMSjUHmiMRQcTDHnLWqmIUYnESBpPC6DBu JoCFTgAxN3AKZhOWHjAHGizr8SMSBlLTT3UsUiXuSoFOIiFXIeMTbxEPQrCMIhNoB3EMIdWKZhHC8AKb TbAHmtNLLQQkt1TNldS3u4AIL3FZ0PI9Zzf4LkUTGoBNNTKMrsXV1jceNfWKNjEr7JL1eBJhhjRHZ9Rg O4IrC5DFS8ZqB3ITNmKIl7PeBuIuVlZJobNl6rKSF9 TkxyKHx2Ote4ZmwyMqJ2AyCaEJmsNFDtP4TcNAXvOlHlYO8BZm2FQxG0QIO6oJGtVw2XIeGcKKfCRbKi EU9MEIv= ID Date Data Source [id number] 01/05/2021 02:39:55 PM EDT [facility] Name Value Range Interpretation Code Description Data Yolanda rce(s) Supporting Document(s) Progress Note [facility] IHLODh3mNdWSEsUs04/WEHdpVNQzk3JoYYfiWYr5CCcrXJMnT0OoDJL0fD1vPPW9LEwHOqBtJnQuLOUf lbm JfHjeGMcAdDWWqLvmIWhHgFOzlMezqiVAxGX2MhQM2JLMtU14pCURlYFRtL4NtXRHyQmW+Ev3RCRKkrE UxZS0KThpX2F8qj4dVHj5yiZ/QWkuPJoKErj9AOuJzzPYJX/ndaYtSqp3qffzTWLUia+/870ovt9AM4T 413COOnohNeAphL1HxTxx7ebzxuv/8V+08esQGcf1a xz/01NWKclacZ2WcXzh3sS0eV7tJyOKEhwZEX5Y/3iuLG8cdjN74bxqdojIW4gJLFM2emmVCL0QMnjlU fbLYUVfRPBqrN+nKV57vt6Dcu17dd3/++KMa/DluD9LWpADsohlBn8xpjioBhLKgih13QKxUJrnrH8fS 2R7Pox95A0FpXlAotMoPb/8BS1DLrTwlFFU2S6C2kq bd6IPXZDzRKjnu1vUOTTQKjPrvpHYy7X+P+YbyQyZplrWwcUyXP6FcqIF8BzMImMFfQp/s9KOx1w1857 n7h0lkXs7spEk3CSoKgHGFAZcl1Meka6fW4dj9C9zd9Ff24/w6mrJPbqBdXtxi+Vg1zPsVI58Y+m08jS mvgOYTPRcrWBbui6F+Pa1mPyTnz0pw0781F+7wO257 Bebe/qVqB2okI4cKkKR6VWy7NCv2lgT86vdpXD4kmSq/U4CS6paAnI+cSxBZMhf3bXRjxhavGcH3CYmyS [file] ICAgICAgICAgICAgICAgICAgICAgICAgICAgICAgICAgICAgICAgICAgICAgICAgICAgICAgICAgICAg ICAgICAgICAgICAgICAgICAgICAgICANCiAgICAgICAgICAgICAgICAgICAgICAgICAgICAgICAgICAg ICAgICAgICAgICAgICAgICAgICAgICAgICAgICAgIC AgICAgICAgICAgICAgICAgICAgICAgICAgICAgICAgICANCiAgICAgICAgICAgICAgICAgICAgICAgIC AgICAgICAgICAgICAgICAgICAgICAgICAgICAgICAgICAgICAgICAgICAgICAgICAgICAgICAgICAgIC AgICAgICAgICAgICAgICANCiAgICAgICAgICAgICAg ICAgICAgICAgICAgICAgICAgICAgICAgICAgICAgICAgICAgICAgICAgICAgICAgICAgICAgICAgICAg ICAgICAgICAgICAgICAgICAgICAgICAgICANCiAgICAgICAgICAgICAgICAgICAgICAgICAgICAgICAg ICAgICAgICAgICAgICAgICAgICAgICAgICAgICAgIC AgICAgICAgICAgICAgICAgICAgICAgICAgICAgICAgICAgICANCiAgICAgICAgICAgICAgICAgICAgIC AgICAgICAgICAgICAgICAgICAgICAgICAgICAgICAgICAgICAgICAgICAgICAgICAgICAgICAgICAgIC AgICAgICAgICAgICAgICAgICANCiAgICAgICAgICAg ICAgICAgICAgICAgICAgICAgICAgICAgICAgICAgICAgICAgICAgICAgICAgICAgICAgICAgICAgICAg ICAgICAgICAgICAgICAgICAgICAgICAgICAgICANCiAgICAgICAgICAgICAgICAgICAgICAgICAgICAg ICAgICAgICAgICAgICAgICAgICAgICAgICAgICAgIC AgICAgICAgICAgICAgICAgICAgICAgICAgICAgICAgICAgICAgICANCiAgICAgICAgICAgICAgICAgIC AgICAgICAgICAgICAgICAgICAgICAgICAgICAgICAgICAgICAgICAgICAgICAgICAgICAgICAgICAgIC AgICAgICAgICAgICAgICAgICAgICANCiAgICAgICAg ICAgICAgICAgICAgICAgICAgICAgICAgICAgICAgICAgICAgICAgICAgICAgICAgICAgICAgICAgICAg ICAgICAgICAgICAgICAgICAgICAgICAgICAgICAgICANCjw/uIEhT7ymnWIppoO7J7anOw6DXl9BGJ6p y4KuMEJkIImyigNuLllQAeWaXUWhCxbNErp9WCpoWC 9KjURrH2XnZ4OlQOxqWS8QLLInSSLfqIAaJUUxIVZwLxL8ZSBaTOcuBM0LnJJhHBmmQDYmBPYdWyUaNB GgVAUwVNEbMZSeWDKPSPQfHZQwWrAgFFpqBF1Ov0TdfLG0VGt+Es7FHA0ds3QlVHc2SISfHG8zbg4ISH tSHlHnU0OskyN2WYLhSPNxWi1JITLcVQQhpZE3GnSo XLPKOoRuA8GtiK19UPNXDw1+YPeyheVtBbsWPvJaPMYnr8SpUTp8HP8RAJZwOKd0yWBeOQDaB6Uls4Tr Xe25OLDjNxoqX3WxPJ0xD1WqxSOzQWHtNL5YUON2QOrjNqTbJiDlRVZsYArhVCFCMKkFDjJsV3Izv7Ev YqB4KVPfOwQiGQcxDZJmDkI0RP81tXdiUU4OGIRkVP HtYG31XTRfZMXpTf7JUh1PPhNhSB8his1QMTVkATJjNasLXdf7QFssGX0VgRZxM0BwyKWys9nEPhXvP6 MHJOK5OKZtLa4FDRDzWwWbRMAlFUbkRM5tFORyLTLMeEeykbJ3EW0GGZ7wwnNfDZ6VMlUpXd4mVu7OCv VmA3TyC3CvVYZyRYGKMQxlPA7OZZctDM2oND8Lg2KG zHFhqX3noj0GCWUlENHnTezfbq4NDvifT2B8vYwjBIOwELDaVIMHSTwwPH8EBEOkWWA4HYA4IAOdGOXU PoHqC16oAZ1BU0Kit18jLmV5LBJgOnJrTKebEQ79lYwrimGhtZUjhNnbLV4OXy2+DQplbmRvYmoNCnhy BLWYAyBlZJZZOqKvGNRrYGClJWPaPyU1NyZzRv7RQK QuDPIqVPLcFuEfTWBePEInOSluPQRdWPGgGgc7VKXrLQUdHB4GNuLgIFMcYwXnNdyzCEHzBNWqsx3TAW OmNIBmPIB7CjViDYGgTZNgEOipUHJsMLY7TXgnESLqZOAuVK1KJmByWOYiCER9QnWuUITgECHhoe4UKZ DgOUDgMcy9KaIfIDAlMQApVWtvSIYwWNX3PEz5IAQo XZPyQC0BNcIoCEQeELAwNwZjZJGyHENzlx5UKYPzPOUnJFC5XUOzOANjCROhDErxUGKmFEBySgI4DCIy JWKwDU3MQmIiJWHlBOH6PdWoADPlTRXxvz7RPJHqZVJdSeS7MaMvIAPwQPWaHYyjGAIfBQN2ENq9DKId GHGeWU5TNbZkMWPgOWs8ZHxpVVGsBUIxzx9HHZMlNK BeJDV7SwBmTFIqWMSjYEydVCJtRMH6TwT6MHSkZWFeBC7YWrZyVBYhNKcbOCsmZVZsEALbvp9LWDYqUO AdIIT8KPOkAJFiQWMaJYcqNKPkBUS2IDi7PTUaHKKdXJ6MFxSoVVCwDNW5SbFsEHFmYEXxnq0GANIqAD F1DbP4NCRiEMOkDKAnBDnjGZLxQHUpWtOkRZUvIZYc XG1VZhTvKVCxDMFkSMdvVUSfBEAmzh4ZYCViSPE0HbI0OGVuGFHyPXWaDPjhOXYtIMJ0HgM2VPTvGPRn QB0MBcGhTCHjLTFrBXVcODJmLAHsnq2TCZXyMXQ0LHG4LEYwBWXrMBLeXIqhJRIePNG6EUA2SDJcYEEm VC5HAyLaVHHdJRk2CXUhBPZeRLQzqb2RWNCtNFP9FF c4YDQdIQHoOOXpZQsvERJsNOMpJzYnWQWeZTOwVN0FWlAtDDFvCqDfRPKoGDWtZDCeev0BZPVoEYY9US H8FtTnTGMbQQAcWHhuBARhATSdVWL8YTYaYNZgAW2ZQdOgTYHlAbZ0BSDzSVPyNTKvra0WDQVqHEZ7KC k0VDJpQEHtQZEpPFeuQNMsAAZlQSz9VFQqXIDpEO1Q HxLwDYTtMgSjWlKjZJUpGWIwke1DNWOjIIL1BlhhXIIvQLZiLVArFJlnSUDoQQA9LUqkUMWjKDBhOU9T JlDgMNEpYvPhAeFvTJPnMRPngg8RUFTdBFH5HAPbHuShGXHwRGZhWHm8bdBinVYuLKt6EB2PR1PenpPm FMVHEz6Cw729CQOtXDEdJu8TS5oqRb9oLLZpNFNPOw 6DRMm3K0ZzO5WvTuVaI6X9Jjc5DDTxGBOiMSFmFuLoKPUzU1X+OWpvVaAcVUYnBITkRVzdKYM7GoOjJj L4VSJvJcWeAdNpRL8dFWXGNl2+KBlqoKAeuSwsOBQEEnT0FlN4NPjqKMZVPx6J ID Date Data Source [id number] 01/05/2021 02:12:03 PM EDT [facility] Name Value Range Interpretation Code Description Data Yolanda rce(s) Supporting Document(s) Progress Note [facility] GTXTPi0nIlHOLvOy91/YAMvdCMXag3IjTDdzPEb6CXlgRZUhA8WdVLZ2iQ6bQRU6SZuQQeWqMaOfUIPx lbm [file] ICAgICAgICAgICAgICAgICAgICAgICAgICAgICAgICAgICAgICAgICAgICAgICAgICAgICAgICAgICAg ICAgICAgICAgICAgICAgICAgICAgICAgICAgICAgICAgICAgDQogICAgICAgICAgICAgICAgICAgICAg ICAgICAgICAgICAgICAgICAgICAgICAgICAgICAgIC AgICAgICAgICAgICAgICAgICAgICAgICAgICAgICAgICAgICAgICAgICAgICAgDQogICAgICAgICAgIC AgICAgICAgICAgICAgICAgICAgICAgICAgICAgICAgICAgICAgICAgICAgICAgICAgICAgICAgICAgIC AgICAgICAgICAgICAgICAgICAgICAgICAgICAgDQog ICAgICAgICAgICAgICAgICAgICAgICAgICAgICAgICAgICAgICAgICAgICAgICAgICAgICAgICAgICAg ICAgICAgICAgICAgICAgICAgICAgICAgICAgICAgICAgICAgICAgDQogICAgICAgICAgICAgICAgICAg ICAgICAgICAgICAgICAgICAgICAgICAgICAgICAgIC AgICAgICAgICAgICAgICAgICAgICAgICAgICAgICAgICAgICAgICAgICAgICAgICAgDQogICAgICAgIC AgICAgICAgICAgICAgICAgICAgICAgICAgICAgICAgICAgICAgICAgICAgICAgICAgICAgICAgICAgIC AgICAgICAgICAgICAgICAgICAgICAgICAgICAgICAg DQogICAgICAgICAgICAgICAgICAgICAgICAgICAgICAgICAgICAgICAgICAgICAgICAgICAgICAgICAg ICAgICAgICAgICAgICAgICAgICAgICAgICAgICAgICAgICAgICAgICAgDQogICAgICAgICAgICAgICAg ICAgICAgICAgICAgICAgICAgICAgICAgICAgICAgIC AgICAgICAgICAgICAgICAgICAgICAgICAgICAgICAgICAgICAgICAgICAgICAgICAgICAgDQogICAgIC AgICAgICAgICAgICAgICAgICAgICAgICAgICAgICAgICAgICAgICAgICAgICAgICAgICAgICAgICAgIC AgICAgICAgICAgICAgICAgICAgICAgICAgICAgICAg ICAgDQogICAgICAgICAgICAgICAgICAgICAgICAgICAgICAgICAgICAgICAgICAgICAgICAgICAgICAg UEBzPVFcBDDmKNGwBDQwYREcBYBgBIIsBJZiVXMzCOMvWFIyIBQrUPHpHYSaNHf7N7wuOUYbZGYwQQ0r SVr6Qw6+XWoAFtZtXSD0fzGttM7TAP4ce6TcKOddEN Ylk2UyBJj7WY2ORPZeDWlnVL0MGHbrxo1DZGXlMHJzrXTXe7ysEoRfVXN9UXMiVwhkKP7ZCMToL0gajx ZkMJZsWHRPPVatIHTZZGegATNZEEObTNQlHuBsYFhfKP0Jd0MioUU8TLb+Wu9UVK6qf5PsLXwkBcKiLY 0tet9NUUbFVgIiM6FknqH8NAS5ZBUxTt6DCZBlCCLe uMHtThKzBONADuWlK6QrzW37SDDLOj6+NGhrpxBcSheFCpQ3OEIvo3FjPTu6OE1AAGWbNOd5gCIsEXVy S4Phf3UaDt66OENlSmaxT6TskpzgBUGwI4GdppidXWGYUQleA0PUHFS1TVtvJbWqCoHrAJOwTDhxZCZO QUzQEhLdW9Hmc5NkJtE0JWWsKyAwMAkrUSApBiR3AF 01gAgrCB4PXJJbIEIgEC55IFE4KWIgZo8XZf1TUwLbIO5fyn7SJgtbQCCvRjoFWqr0IDqnXV2UrEYsC4 WifSGbt6mQCoGzI6XEMNF8NNHmLa6XWQXdRkMmMSPsMExxYV8zWBOsTVABdPixujO9UE4OMJ7qerDwYW 3ZDdQmMu3vBo7DKnAlV6NzL0QvAAIeNDYJACcgKT7P YShdOD4dFP9Iw9KVfSAsnJ9woi9IYTLmRFVgXeqcgp2DLwmsN6P5nBiyBSAkVjFqRGYHUPikDP3KIWXa KSP3NPCxRTHiXHDHXqLfB82qSJ3WI0Oin96dUzE7FEYyMsLxGEvaNS88zLmtmySknRPhxAoeDT4MEp4+ DQplbmRvYmoNCnhyZWYNCjAgMzkNCjAwMDAwMDAwMD YiDhE5CrBbAy5ICITkQHBiFVZlSbIpWWYiYKZdTAppRWZcBOQ6PERdFBYjLVQaUQ7PPyMjZBZcCzz4Bh BsKTKwPDJxsh3QPTTpXIOxBYH8KeHdURSrEBRxUCwgEWGzZKKoDfFtVIKzPVVcYK9HEoVzIYYaEPH0Kk ArYPPeJGIkfj2NIONgXSXbNzT3DAQbJDLyIRHcPQzo JUHqFVM2DpC7VUMsRDJjQT5CQwIlOPMvXWP3MoKkEQUpCOChkx1BBEYzMNUwVWlfWPDiBICvTBArMSlb NHFbZBLvZTx3LGTkTBCgOK9OFnNmVYQmNSM2LFOwZGMiCAGqfz8PZJKxYXNqBLy7GGQpWXHtIRXtAMzb HKKxLEK3KEX4IHDaNZOoEA1LYxOaWUJlTEIfDuSlPA EwZRLjyy5VGDHrHLJvTkS5RRZeBTFaCPYrQLneVVLvAGI6IvdfXQCnDRQrYR5FXzRcCZLqRGC9HxvpAI TtNKKopg2XOCLtHCUyEouwEUZmAQSvIGJhJZvgWCSyQRH5TpI9UDAyOOAcGM2MGdFaIGKwQbp0JCXpIO GpUOSxio4ILEQnMMVmOVP7XhTqMOBfNMIoKYifZXJo OBU2XVK7JTJuXXFrWN5DPxClLPNdYkt3HYMdLNRsSJTesw8UXSXpRABfIAt9IQWnNRKsAJEmQNfpFMWf ZMZdFON4IILhHBSnJP5DZxQjALToGuXoNIDhVFWwXQZhuu3UJOVlGBBkNIM8VsZkMAXgCIVdFEwvJTMp FRWjOJJcAFArXIDaFD7UBiGnDUBvAmT5FDSxLFUfOL Lmnd4VJITaEHDcWpMhXbUbCJUySCPwQJahOFYqKZP0NJN0FAKcMBBiPZ3IOiUtKIAdLtY0GJOpHNYoUX Ibyq4NDSAzQEQqZcn3ZLAvOCOmRPYsBQpmQJHuJMG3GcsiEHEkTSZdRO9RLsFtMVQeGrl4IIjvWLErFM Tblg6KXDBbKVYyRItbWOOdDJAoRHIgGRvgSARwXBH5 FUgeZRZgEQNaBM1IGcGsLFwuALNTHjn0LHoiZ6j1XWLjJH5PT5Rzw4DsFyjgPLOQTQtsQT5icvUmURGg Jb4WA6mUYoz9Kdr0WQC2LMybOgPkWXMpDajaDYRnXDFbWbs5Yjw1OE1cNYkuUtGvQjw9KPHnMnQ8E0V4 QLC8NrEiLoPhMLIlLLLzGtZuKJ0KMw5NYgV4AKO7mLTsNz6MLwxcYYpYQpNwSP5KDRw= ID Date Data Source [id number] 10/16/2020 02:46:52 PM EDT [facility] Name Value Range Interpretation Code Description Data Yolanda rce(s) Supporting Document(s) Progress Note [facility] JTFPPq8hXlFBQmOw40/HPNfkBBWzo0RrEJruWLl4YTjfYLFiV7HaRGZ8aV0uTWI1ZGxIKfIfSbHvDeAm lbm [file] ezLn27fuzZeDzi4arupbBidhtD2uLNHUCRxr4WZH//efraín+JxSqDAsjZJ3z055WXBwUSIHienr42UgmBy4 [file] ScKsTcNK5LEs5UHhZ5NOX8cPQsCb4JSbYgJSEDVrJzPJ6OQRn= ID Date Data Source [id number] 09/02/2020 12:02:48 PM EDT [facility] Name Value Range Interpretation Code Description Data Yolanda rce(s) Supporting Document(s) Progress Note [facility] NSBXGb5eVuSFBgIf51/PYXqtHPXee7MjVPzjZNf4TSmzMHIdH4HaWTN1hH4pYHW6TNnMPqCpGeWeNIE4 lbm [file] CiAgICAgICAgICAgICAgICAgICAgICAgICAgICAgICAgICAgICAgICAgICAgICAgICAgICAgICAgICAg ICAgICAgICAgICAgICAgICAgICAgICAgICAgICAgICAgICAgICAgICANCiAgICAgICAgICAgICAgICAg ICAgICAgICAgICAgICAgICAgICAgICAgICAgICAgIC AgICAgICAgICAgICAgICAgICAgICAgICAgICAgICAgICAgICAgICAgICAgICAgICAgICANCiAgICAgIC AgICAgICAgICAgICAgICAgICAgICAgICAgICAgICAgICAgICAgICAgICAgICAgICAgICAgICAgICAgIC AgICAgICAgICAgICAgICAgICAgICAgICAgICAgICAg ICANCiAgICAgICAgICAgICAgICAgICAgICAgICAgICAgICAgICAgICAgICAgICAgICAgICAgICAgICAg ICAgICAgICAgICAgICAgICAgICAgICAgICAgICAgICAgICAgICAgICAgICANCiAgICAgICAgICAgICAg ICAgICAgICAgICAgICAgICAgICAgICAgICAgICAgIC AgICAgICAgICAgICAgICAgICAgICAgICAgICAgICAgICAgICAgICAgICAgICAgICAgICAgICANCiAgIC AgICAgICAgICAgICAgICAgICAgICAgICAgICAgICAgICAgICAgICAgICAgICAgICAgICAgICAgICAgIC AgICAgICAgICAgICAgICAgICAgICAgICAgICAgICAg ICAgICANCiAgICAgICAgICAgICAgICAgICAgICAgICAgICAgICAgICAgICAgICAgICAgICAgICAgICAg ICAgICAgICAgICAgICAgICAgICAgICAgICAgICAgICAgICAgICAgICAgICAgICANCiAgICAgICAgICAg ICAgICAgICAgICAgICAgICAgICAgICAgICAgICAgIC AgICAgICAgICAgICAgICAgICAgICAgICAgICAgICAgICAgICAgICAgICAgICAgICAgICAgICAgICANCi AgICAgICAgICAgICAgICAgICAgICAgICAgICAgICAgICAgICAgICAgICAgICAgICAgICAgICAgICAgIC AgICAgICAgICAgICAgICAgICAgICAgICAgICAgICAg ICAgICAgICANCiAgICAgICAgICAgICAgICAgICAgICAgICAgICAgICAgICAgICAgICAgICAgICAgICAg ICAgICAgICAgICAgICAgICAgICAgICAgICAgICAgICAgICAgICAgICAgICAgICAgICANCjw/pPDoS0kz aNFquxH7N8izLe0RLf8KGS3pg0QjXWDmGLliqtHzJo gWSeQtGDHqZmeNEka7GGqjSN1AkBOhG4IrX9GaLVvqTZ5SXXAuMJUkfBYsYXGcYNGcAoK8ZXCfLWuuVG 5OnILqRNkoYYAmXAUdCqQiFKAcSEJjBZYbPNJoYZPLSO9MBqZvY9PklU74ROTWLn1+DQplbmRvYmoNCj W3QRYqx9QePKs5BL4RUKJxTokqu3TdIyntDXXKCFxq QJ7RGSL5ONN5CDSaEg9KRTIzW991abPtAS4KBk4VMuRsLX0ksb8NGseeIEFcJfaTYik1IAfvSM8PzXJk BCkFem1ddfMuxyZVl4UptvFuhBNIcIvkYCKEJOP2ZD8seDVrJXEPGUarP6LJDIF7XZNpJOnfLlQxSZOi PXzaNIPLRKvJXdBuB1Ywq0TxHnX1XGKgHzImDOtvML TdExY1UR76nRbdIX2RSECjZPOmEY03LUV8OUTcBd3CCy2OWoZwIM3wka2GBhzaZVKhKcsNQhy7TUmzYF 5PePWaH7JyuFBhp4bWDoYeR7QIBNL1MTFcEt0KGUUhYaPsNQUeINghTI0kDDTnFMDOtScyxoP3VM1CAC 7xasMnYZ9RVuLrZq4mDf1USoWsS3SmI4JfMZGnUBQM MDpdLP4NXDkpJF2hQQ9Qx2HQsIOwuX3mrt7FLAUyDQVtWenpat8CQkwlS9J6bBliRWNsDaAxCUTTKNhh CP3QQFKgJZK7TBWkUCDzYMXYYnMyV14vCK6CG9Thu94gBdQ0BCUmZhWvIKcjVH93qDkfnkRoyDSosPaf LE2KQe1+DQplbmRvYmoNCnhyZWYNCjAgMzkNCjAwMD CoIKAyXITiRbC6InGrKu0SGBIiQENdMDDsPtUbIDAbXDAeLFlgJTMiOHR9SPdqQHAyOZApKB4NUzZnCO CdUpi0QzqvXKXmMQTyfu2JZCLtIYBsWBP5BfIkCBEdOGRhYHxiUUKsQIDdUDj5LSMmWATvOV9ZYnYoLV XmOIA6ARHfQVYcRKXmxo8FTDQwSJSgFey0VDYaPCAx EBVtIBztPFKaILM9RGu4LWKfOYFrTI6QWpXgYPCtSZY7ZGRgGZRpBWRoht1CIRZbDDKgAZv1OPHmLLWh GXDnTZrjTEItOQLcUXdpFCQfQBCnXW7GMkOuBSQiXOXnSYdlRMTwFUOkhk9OLNBmIQIkMVM7LABqFIEb WEMcVXeiSIBnFDQ6RuD2UQYmLJWnHU4IPqNnTOFkIM K5OooeRUGpMPKfcz0KJLGmWQNjDkV9EbLsYDPoRCMbJZywXHTeDLE9BQo9CAMsFVTrUD8ROqZxFNArOH O5UKrsFHGmUBOlel7YTCSvAPJvNSGjHhLdZRAqFDBsHMnlLXKtSVH1YKMfBMNeGRXvMJ4WRkDpGWToIc o6KLJpPROtNGIwqs4YXCTtJENqGXSbVYFsVEJmJMEu GVemIFSuFET4WZB9RUVxKKDwHZ1SBrZjDVNpLaHuKFNmUEGfCSYgvf0QJSRyOYWyARL9IVEqOZFoBNXr UFksBKShYYDzDND5HNEsKPXwNF2CYjYlQOBfCcBkSFbfLOVvCYNftk9SDEUhNTJiEQJ1KYDeMXUqOWMt GKwaWXToSKFoRsPsOWLhOSNdGY9COeKhXPDeRxFdJf ZmMQRtCSRasl6KFAHbJBMyLdL2DXGjTYQaFAEgQZnoFZHwPRX3LsW5JQRkFEQwBW3PCzLtPHAiJfD3VB qtPLJqHQLpqm1BZEFfIULbMcE5ZJAoBFUcSGLzXKhtRJSwVAE4YHy3WPYuBMXsCR8XFcXwMPTyAoyuEG HcJXCpKISyuj6DYYMeFOEkNYHiAeWeWNCyMCPcCHfs QCXtFOV5LyfsEJMjLXZdFG9WUwPqGNqoOLEKQwu6JJunR2o0ZSDpEX5AM9Hof0MgZutmFSBVZIspOT0i roBsMQWxRy9CR4zUGzo2QzCjQCS1LcCgEQF6QjH3B4L3SgomLMKoSSZ1QrUzWw6pDBa8ElStQZHjKcEb UBeaSnVqJTW7N9PjTCN2WCi6V4YjRyBrHX9GJv6GBxO1BOH1yBDjKr8HAnb2PmDWPeJvXZ4FODf= ID Date Data Source [id number] 09/02/2020 11:06:14 AM EDT [facility] Name Value Range Interpretation Code Description Data Yolanda rce(s) Supporting Document(s) Progress Note [facility] IQWXSo6oBuYIErKt86/YRMznXQBqa4BoKXpmGWc1YKtvLXIwG2QcPYT0aB5zPUD7TJfVAzKbUuRcRMT0 lbm [file] LuUei9EZw1ZLizNLVaSyGmNCA3Wq8iGJBEUz5+LHfotAMjzOwnJVPQDhF4DLq0ZEtvHVKZEu3P ID Date Data Source [id number] 08/08/2020 10:34:00 AM EDT [facility] Name Value Range Interpretation Code Description Data Yolanda rce(s) Supporting Document(s) Triglycerides 140 [facility] Cholesterol 205 [facility] HDL 47 [facility] Chol/HDL Ratio 4.36 [facility] Cholesterol in LDL [Mass/volume] in Serum or Plasma by calculation 13 2.0 [facility]) ID Date Data Source [id number] 08/07/2020 10:03:50 AM EDT [facility] Name Value Range Interpretation Code Description Data Yolanda rce(s) Supporting Document(s) Progress Note [facility] NSDCZa8gBgRMWkIv99/XDZvjEKZyq7CcWRyoOQb4PUanVSXjT1OdFKP6wM2zXQI7DZfMRiBiPpPcEFQt lbm [file] Cj4+DFdtzMPvtSexCAUJWpZ5TgA2PAbsLTJZYk0X ID Date Data Source [id number] 08/05/2020 01:12:11 PM EDT [facility] Name Value Range Interpretation Code Description Data Yolanda rce(s) Supporting Document(s) [facility] VYTCUd1cLqBAKeRau6DdJyXeDQTpWB1ijma3H5R6wMIgC7IojIIkv0xjC5ZgI6ZlVQUeFACSBV6SzCDc jb2 [file] Mw0hNqP21n3NI+P7th5vwS/Pi389h8YzN0s/3b9/9+c/f6k60br5s36/8/7dV2/fisheries diver/3s089//lFh20f/ KhN/ew6mBJpDpz/tg+LKgV25bTK47MwVj2ce+6gW/va7H/76z29//xbb328855qE7htZgx3wda/vs7WF ic4f3/2Av3r/9ocf/vrdn//3t3/8O7c/zev92zStC1 v9x3c/2K/ff/P2+/96vfsf/vTDj2+/71R25HRqrhg32Inl/frD7/iV46RY08o/d4Mi4Q1/8M4ytTgY+N HLP1j/XSjP49Ji/KglDptnd32/6Ye3b//Pd3/521bzfLer/fTrzz/99St9pd9zsa50w//tH3/06/Md/s d333/7x4++8PoI//zb//zek0093pZ/vcNjiPd/+tP3 n/wIPS/8iz/40oSezn5Gplp+N/zhu9/95w9/+N3r/p+8zVcvYT/+7c6iEb/4h18gbec8b/zy6/efffnF 43ftfhz90n711U3n93e//mhoxljptmt6wJ6k9x//h8tfhB3dn1Sbfoyl424S78/+/J7yoZcOp3MG/+Zu 3pwjhY07NLgU0/buiw+kzDr59HFuNS6+fv/Fu/cvoN /bPO4x+tPPP//6N1+4ofkp2m+s8+HvKg5KklXJ+obmvqYusJLbYX2TML0sn6KpPiW2MQExu7PxOQnuLW t2kDZjOMqidbTeb3BfpzrzX8Avq2PuEqMeFYIbZkPuUql9DJTkZlT6oITwWfDkDGMmE4XjFYKoLrD0Gm VaNRWNTZ3KHEFqqcAyZnUvECW+ZfYfOU7kvmqjYFBw u4HpWTnwOLitJMYdV0Z6lHllVBKzD0GydP18YPPiN8VpzwI4SAG5YYDgIoVlVKGfsJCiLACpJXL+PmVu XJ9ltplsBJZsi2KxAAfaAYO4iX1bTStQLIWGCVgAEXrdVuP7w10bipCBTCLwAKGpFE2HyhDtkOxwojXg rSVxRJH8PqYdOOG9MmEbOwBvMUKOVYOlTDQiJIDpAZ DrX8IbqCsoCYcKNJCSQGiTHLdgKlDaj6R4YUPwasXUVGAHJafxL1WPURinYnj1LKL8VUhqC8R8EzbwG4 SsEW3AZ2AgZNBmJIPAQRWvxkQuAU1MmrUtqU8fCRmMZDQKXAkGQRwtXnT2a87hmrDKLZZjLUKqSXyfVO EeLSZkOQGaPESnYMAhQOBhKCQhWC3AW4UkBWTtJNHD TCV1z3WxASSsexhkcatiJv7anrDeKqy+AhdgFVMdy2EuJRptB8I7dAOjS3AgO8YeQK9KaJKfBWmuIUMt WJArNXZuT173wtUwUQ7+QM3su6LyPczqSMRFWIJaVWIoLBZgGRX0PxTtRIImSQVyHKIsSfE6BgIjGiLS TALyACE8RJs4HSUdBIRzZLMvQAqjQFFzGFF0VSV7BK SbBZMtOU6wSbZbDEGfRwO1RIHeNORsOJPvlkPCIMSwHUBbHFLcQEI4BXJcUVHrBJvqFZIgWYUzSML5IU KcOBCcTM0yOjEmRMUqIVByKqxeCWMoFXIcytYEYNJzGQXcJGN6XpPfODOuSPTtZHgjJUCiOBRfIpn6FP CfYOKzAB8pTaGyLPAqEQS8USxmGYQkESGexaWEEDDp HKWwHSGsPwWlWMHiCGSuLSgtUKLgZAMlPwQpGQNrHYZkRP5rZnQgGVOhRRT2EMVoREHjJKPszuDYTPFw HLWgSGs0GNUgHDIiEHMhGFoqRQHdFATrGSU1WZKcLUHfCB3vKhPxJPKwDWReSWIoCQOyTVNrifYWBYDo LJFrPUS3BEReKWVrELKbPFcwCMAbDLZcInr4ZBQzFF WgJA2bFeWkDNZvKLV4JLVdFJElYRJkkcCPXWJkIXB9MGQhHBZrDEXcPCDtOMwiELSmFIMmZlZ3EDUyMV ExTL7wJrBpDOIeDZU1PpHnRHXkGXKjmhBDTVKlIJLnYOB1SoJeBAJhOPOoWArvDTDkJFGlDBKlRQI2FR N5LOMoEyEhSQkjBWLWBKlXM6YddvQcEtXRO3liIp8c PmKfVDYRG8Dkk0XiEFScVHMUCx9+EzZ7SWL4kWNmTdm7QCluCMpmTWYWKh== ID Date Data Source [id number] 08/05/2020 10:22:46 AM EDT [facility] Name Value Range Interpretation Code Description Data Yolanda rce(s) Supporting Document(s) Progress Note [facility] JLIEFc6pYdAVBgZa17/EBJjsKVOmh2BeWIydAVg7EYjjEFYuX9MlFSK8oO0wQSQ0QJqJMgAaMqAlWMVj lbm [file] ICAgICAgICAgICAgICAgICAgICAgICAgICAgICAgICAgICAgICAgICAgICAgICAgICAgICAgICAgICAg ICAgICAgICAgICAgICAgICAgICAgICAgICAgICAgIC AgICAgDQogICAgICAgICAgICAgICAgICAgICAgICAgICAgICAgICAgICAgICAgICAgICAgICAgICAgIC AgICAgICAgICAgICAgICAgICAgICAgICAgICAgICAgICAgICAgICAgICAgICAgDQogICAgICAgICAgIC AgICAgICAgICAgICAgICAgICAgICAgICAgICAgICAg ICAgICAgICAgICAgICAgICAgICAgICAgICAgICAgICAgICAgICAgICAgICAgICAgICAgICAgICAgDQog ICAgICAgICAgICAgICAgICAgICAgICAgICAgICAgICAgICAgICAgICAgICAgICAgICAgICAgICAgICAg ICAgICAgICAgICAgICAgICAgICAgICAgICAgICAgIC AgICAgICAgDQogICAgICAgICAgICAgICAgICAgICAgICAgICAgICAgICAgICAgICAgICAgICAgICAgIC AgICAgICAgICAgICAgICAgICAgICAgICAgICAgICAgICAgICAgICAgICAgICAgICAgDQogICAgICAgIC AgICAgICAgICAgICAgICAgICAgICAgICAgICAgICAg ICAgICAgICAgICAgICAgICAgICAgICAgICAgICAgICAgICAgICAgICAgICAgICAgICAgICAgICAgICAg DQogICAgICAgICAgICAgICAgICAgICAgICAgICAgICAgICAgICAgICAgICAgICAgICAgICAgICAgICAg ICAgICAgICAgICAgICAgICAgICAgICAgICAgICAgIC AgICAgICAgICAgDQogICAgICAgICAgICAgICAgICAgICAgICAgICAgICAgICAgICAgICAgICAgICAgIC AgICAgICAgICAgICAgICAgICAgICAgICAgICAgICAgICAgICAgICAgICAgICAgICAgICAgDQogICAgIC AgICAgICAgICAgICAgICAgICAgICAgICAgICAgICAg ICAgICAgICAgICAgICAgICAgICAgICAgICAgICAgICAgICAgICAgICAgICAgICAgICAgICAgICAgICAg ICAgDQogICAgICAgICAgICAgICAgICAgICAgICAgICAgICAgICAgICAgICAgICAgICAgICAgICAgICAg ICAgICAgICAgICAgICAgICAgICAgICAgICAgICAgIC WjZGSnBNSsDVDrCRFhPJc1Y6ynJEIcPTEtWR8vPFe4Cu0+JYoTKlYgGTJ9qoSraT3KEN8sx2BaFQetJO Lfi6YqPKe4FB2NNCUlCBjiVO4XVOmykt5TSCGeUOQclNUHn3ngAhDvHKI5KYDqYrmnAN1KHJPbT9bbgq BbIDUgMCBSIDcgMCBSIDkgMCBSIDExIDAgUiAxMyAw GHCwWVSzAKDPHI5UDkOlX1AabH37CPYZNc1+CUfzmlEyHauFMpK4LFHmb3OrJOe8IA2VYHPqZhszx4Ck AvOjLNPIOOypLC3QEFS8JVGtNKUgFv5FMPAuD327etJeUF2KFy2REsSzMJ7bts9BQyZfPVAjFkaBNru6 KDufCA5RvKIxKPzNav2kilMxbhIZc6QzpmQurQRPVT MjAA4hXTZFARRuU6fvBL1AYGJ6IUWiYkTmYnZtVRYrWZpnTVUGYAjDVkMsV5Eyg1FkXlU7MTJtMsAlLM kdRXCjZpQ4DZ28vPueVY2RJDLxQUOoUA07YXS7VHKcVk1VXg3SWmFfNV2kff4ZXpKwOFPbGbaSPjl5TI bsKR5GkDRwQ7EhrJYtj6gDTrImD7EMFGT4BDUgFp6I ZTEaVwMrPOTiKYwxJC3mTKBmHQQEnWsknzG3HJ3DXL2zdxIsXS4LTvGtOw6vKy3WOiSyJ3MoT7NhGOMy ZWEZJGzwEL0QAUcaXT7dWV4Ax3SPzHYruW9koh4YLMAlNQOwGgydei1JJtygB3U0vIxoAXKbIyuuDJVV DUetVR9DXUCvLND2QXFnCVLiXCRXTnDpS12oYK6CK4 Tpn77fBwH0WDDiVpArUFygHM59qPgmbnSbaYWqdMqvXY5JBk2+DQplbmRvYmoNCnhyZWYNCjAgMzINCj QgIYKfKMYgLTJxGhJ3MaNbRh4HNZUbRKXxCHLaIeKrRVBgGLCpIEprQONtBLW0BUKrAVVpHSFxXK6OWu TyXPEpEMq6CutdRPHkJIJhoy2XRHVvIHKyUOR0KbZh NTAzFHNlFVhfQSIkBSSdCfa5TWEvJYJkMZ7HVcBoSRMeHHZmEPXmSNMiEXVssr2UWUYyBSNmEvz4MPXg MREiSAQdKXhnDYMjDNI5PBAyEAQtDBStIF8AIrVeNNRyJRD7PzLpCDKbVMDkdg0EJKMvIXEkBRimJCTd YEOcQTUyUInnMPWwNVFrDDLtAOKeGKVsWT5UOwSgMD RlGNV7OSZjCPOoOSYxbh8KLEHqRZMcCjLbNzIuECTbOHXxOMmwKAJhKLE4MRBiIDBnTOKtUG8HQdAyVA IeUYl8MhJhALJjDVVfcy7JKDHhIAReJNa8ATRdANPjANGbJJwhLCVwJFUwTzGbGFMvUYSvJD6XLpHoBM FpDvP1FsrkNFQrTXYzff3ICPRfNIMzTYLsJMJrGMBv BJPaLZexXCEuGSCvCDa1XZYmBQOyWO2EEnBmCOFrNyQvJURkENStQGErlo7SMFGjHKNbMzE2UYDkYWDd OIVpVBmnBBViXMK0KkJnUAZdRNNyBB4AXiSnPWKkYTL2GMrmTDLxBHAjlz7HRFCvHUY0LIE8ShHnAIMp MUEfNNogJPKqZYZ6AAkpVLEuAASbXZ5OIuFaSZTvXB WwQbsnUVStFGIbda4RMPBvSEQ4SvHwMCUbGZUpZZIcDLbrNXDmQGD1NOJvSVGmGIIhQM8XFnDvQJWdEQ s1ATQtLHQiCRXark7YPIShKNZ4ODBjRYWzBKPvOLWdLWb8yvVnvABzESm4JR4LQ6TglmZbMbUEWc4Ou3 13EABlYWYvNw9UZ4woIl2lWIPoTROOIi2DLLs1Vih5 RyXmBJD6QXTlPJecYvBvYkrqTFCbMpTiUpDuABY+WCcuPwxpQAHbZio8SmDhXUMoULYoCKD0E7ZjODEx CRH8SJ1rQOCCKe2+YBknbCFpyMbhYSMRRvT1Zoj7HIasQQGWOs3D ID Date Data Source [id number] 07/08/2020 03:36:07 PM EDT [facility] Name Value Range Interpretation Code Description Data Yolanda rce(s) Supporting Document(s) Progress Note [facility] FISFDh1oQfQFBfXt85/XNAumKPYem0ErFRiyZNi5ODluDOGqR0PsMLA4jN6lBEX1GNlLDpOuRnLdHeEj lbm [file] /9//nYNRZF8S5/9mlq/46i0cr8/guuHm0w8jQElsi3H8++8dPtuzm3M+BEAD WRAPPER/ePZ1c/Xa02BFx896bgQym [file] XiuRE/OLBznV9sRZSFASIT8DBSHTLm01ElLp4R5w4HVFC13KQEgIeaT5CW+UtmZHxkMi0DM+lOjR+ДМИТРИЙ [file] AgICAgICAgICAgICAgICAgICAgICAgICAgICAgICAg UMBxUBZqNAHiAPYoCQCvDMXsEHNeJZYxAI7IFRDgGZNsCPRlZFPrQEQnZPDcXJKgUFXlUEBzAWQnGNTr ICAgICAgICAgICAgICAgICAgICAgICAgICAgICAgICAgICAgICAgICAgICAgICAgICAgICAgICAgICAg DFSpEINtIY7CIXXiJVSfVNNsFHZoQTMeZMHaUQFsZJ AgICAgICAgICAgICAgICAgICAgICAgICAgICAgICAgICAgICAgICAgICAgICAgICAgICAgICAgICAgIC FxHVWfJMBxCTDuGUEeZTQaHJ7SJEXuHPGpBCFvUOVnKHSxFNGdEOLbEQKcOXQcLZTgEBXsOOLoLODwCT AgICAgICAgICAgICAgICAgICAgICAgICAgICAgICAg NUDjTVClOSIlLJWyPVZkSSQqVBSzWBHqRGRiZC1OAULdDOSjIGCkHZGyWZQyARIgGPUfIRWnMLSeZEHc ICAgICAgICAgICAgICAgICAgICAgICAgICAgICAgICAgICAgICAgICAgICAgICAgICAgICAgICAgICAg CCDpWOLuWAYaJT2PPLFgEMFrVCMiRPAzNJQnHCAjYJ AgICAgICAgICAgICAgICAgICAgICAgICAgICAgICAgICAgICAgICAgICAgICAgICAgICAgICAgICAgIC DsFVPvFVIuHPTsRMRqLXFsZUIgHH5AUGRcWAFvWJMhVZKaRFPdWOBnAICvTWRxECJhAXYeHRNsCITeNY AgICAgICAgICAgICAgICAgICAgICAgICAgICAgICAg XEUoYQJmNSXsANElTJSsPFXjTBXeHFApSBHqORYqRV8YOOFcPDKuQYJyKXCkQPZkUMPzJYAtHNHcIEAk ICAgICAgICAgICAgICAgICAgICAgICAgICAgICAgICAgICAgICAgICAgICAgICAgICAgICAgICAgICAg JFBkFTQqKBWnJNXuSU2UVUYbZHZdBGKlXWMmMAKaPW AgICAgICAgICAgICAgICAgICAgICAgICAgICAgICAgICAgICAgICAgICAgICAgICAgICAgICAgICAgIC UdGDSxKBQyUJWnKXIaESWkOIVlSHWzER9EOYNdKPSwYFCiZTWgSNJeFFUzEFGqDEClNZAwXYLjJDAcNZ AgICAgICAgICAgICAgICAgICAgICAgICAgICAgICAg XIHpILXeXJBvHUFnDSEfQUGvUPMhHXEpGXKoATTjNRVmFX8EYU73oULdz9O8UNDkPY7byht/Fb5ELKpe bwZnoXCgSA3BYgEfJQ9bav4NRkEbZA5fue3SBJxEEeQtD0K4nBIxLAMwCVASBjNrK07gROqoRv30MWyk WBMmKwEgXBx7Bz1LOhBeJ1pvWQJfRbA8YZGqTaV1UE DhOaK7BJBtRfMqEHSvFUJvTYIlDLWCDAE2XOXbVwQxGYrsTW8Vu9NoaVG9BHc+Lr1YZD5wi8MaZZeaTi NdXM8amy2QEAcWDhVoJ7PlypL2OHBcTEMlDg3RCCEbQESwgJKtOxAlIWCSIkJyZ6VdiK05DLYJUq6+DQ wttvLbCrfJUdWlMBDky6MuAQb7EV2USUDnBTb8qCGv XGMoP4Njm3DbFh99CJMsXbneBAW8ovXvKTRrNvAoBEKrNZKXVDOqnGCmXrBkOqHlZmVyTAU9HvFyBC1d EDnsAF9QOWJ7LKayYVLvPWLmR0iAZsYpRMOvMdRriYhjPZ6VYrEiV2IutfGsbWBqLzSnCDKZEt5+DQpl xpGcQfxRMuV4WLEhm8UfBOy9LO7WWFDbSDwuBE8WVC AysF5aWKrhFT5SVxOmIXXeCVBSKlLvY72iaXKoNEl3O0VeLlRvWMOgXrlbZJOzTTlsLbCbIXIbGwHpCP ogID4+ID4+KVqlFZ7BPHxzoaUzAUQvRh9QXESzPDYtFT9iESFmNRLjF8B8gIepCPDOZcZlN5yksthpDO 0mNTWhK708oNidmaHuQGVlBOAjGt9RBXTpQBI2KZXa sQLsYkLuPBIWSIlnSX8BlZJoGLV8cB6sFNtjJNAdAEXaT5dODiLaqJijFO48pRjnwdNcdCHhHFo+Pg0K RZ0tl7FyAWg2ymHhQOnoCEU4VLofVWUaFYMcRNJiEOL6DXF5HZDNDlLiINVlMFBiJGulZUFbKIUoae7N YZAcTFN2OsadPQBuKCUvRQCuFAzhWRVyNRB1JOP6TP RsGDAeAV3NAaSxEAIjSXQsBXjrOLBsWHQdnj5JPFArRRHxMBYgKoNyLSCsJXTqXUvmJIKpIQT4OkO1PH ObFLPzOG2CKiOeRXEnSUjiRoBwIKOhGFHiqb8THVLoEZKvWQHvDZBnYFFrHQLsZHnyOTVkOCFlHDQyYX OeBJNdVS0KLkIvLSPkSPSkDHAfKGIfXPRjzn4ZUINe OMYnNwQ5WEXdYYElAQXuYMliSETgPOUtXfb1USYiARXfEV0CAiMmSNSjYYmfEYJmOZOhWANglc7YTIKz GYUiKWI5IFOaUGZsBVKuWUptANIqFEQ9WOA0FOPmJRSxQB6BOuDpXJDfUzQhVAJoPXDiUGZcaj1MPVKw KXEkEIKhNWZaCQBwYVEyWGbxMBRpXIOjUec8BDGzHA VhAZ4BHjMcYISkQrP6PDUbSNFxDMYibq7VRNFlRLBpUgX4LMQiJYOmOPPiLLzgXKPiKQUgJhFrGKDfSF HsRX3MZyWfZHPmDpP9NdOqQZWtSZArxa8SVSFeIHC2SVY4YsSzTJOjJWHwUAzaDCTnWAW3IfG3NXMgPV WzZX1UVsLeGURdKQL6ZSndJPAqRJJdja8KOHAaDMW0 DuC4WrKwAOQkDBHtKPauMAFhTGJ7Kfs4CRPlODJoTD5CZuArLHVvOCjoXKHfLTLuFFIshp8POGRdHTF6 RxXoXDViBQJjWLPpTMrpCBIgADL3LaH7UMPlCMZlYU3KDaJkVJTwVZtaSaInVOKeVSJszy4YUGEbVWW4 FYS0CpYnYRNiWSQrTIpbVKXyKUA3NtV4OYYyAQHxXC 0CJpKyLARnQOg8GTxxYAYjHMWbno0ToKDguTtoav3NYZhVOz1DnElnMWV1CFkcBo6anBJpTDDiRANSMz 0EdiOxOLYxLMUBJVdxLHUeUFNoQOOaOTFcNORwHmRnEDNiXifaGrR8DNCcIMTrWoUvWpB5FVXgLzGnTk P2DpTsOLB7NRZkSTBfKMtqX2Y2UhK7D5K+IF0gDQ o+Rv9Cq0TrtkX0isPeLOa2ZTJ6Pz6CWVFPY9BNRu== ID Date Data Source [id number] 06/20/2020 04:08:57 PM EST [facility] Name Value Range Interpretation Code Description Data Yolanda rce(s) Supporting Document(s) Progress Note [facility] YHVHSj7wKeWRQjOl30/XMNuuSMFkx3AqDKchNWp6BSzsIVMyV4JnNOS9zX1oZAU0XKeMUtMeToVlIiC1 lbm AbNffTIlExJGVqWhtPCcKwSOvgKlwsaHEeAJ0OkKY1DSYzY88aKTUkXLRvD7WjGTP4IdJ+Ve3NLGTlcO MlUV3RVdqU2G8tKszZCl0umh/DkVZaJRKBvl/ZoiFNd8nMOlJRx5eRfz2P6SZawPkWaIQ026kmP+wqmg 0Eu9KaMrZY+St0X8Ne+2aliQOvm0+A8mS6SOxb/t/9 WLJZoB0GN//HOY2htraUwv/ZQ+KFi5blGN2v/xxh06305mn02k4PPjF1f0Bu8BUND93QTgZ6x3x2of5p FvgyFpoOW5Cvm47+Uc1DKlh8S0sZY375/V/Mm7914zqlmPLygGc02+E1KHlLgAuh73HkhyUyoLdhGnoB Sha4GAckqr8A0arazWgo4Ak8R9YB54ZCNn4QzC23MW GBKhVdgv3WhLV8fNce54ipu/03xkn5Ut8/e6WenwudywU2bt0sH9uhC1xSwhCEO+KPPbm0vnU++zNdqE TzMT5YBvI+mDONKeKsjybXv94s+IJA64yccZ4Ow7D74MnOQrhD6AlqggOtrLEOYsVQNuDpON/JL98QUD CLwdjWjrtjx+rgvSADHypBfohPvh+uqPTecDhNbhTN [file] OrzM3gpMZzKQRPAAeXPNXCPmUz2AleZpg9wBOj+Rubén [file] 0pEDDYTd6+EHeeqHHaaCxyWUDAVaXuAQM1RZvrGEKYYi7W ID Date Data Source [id number] 06/15/2020 08:23:00 AM EST [facility] Name Value Range Interpretation Code Description Data Yolanda rce(s) Supporting Document(s) BHD COVID-19 RT-PCR BEAD WRAPPER SWAB Not Detected Not Detected [facility] This test has received Emergency Use Aut horization (EUA). We willcontinue to follow federal and state requirements for COVID-19reporting. This test was developed and its performance characteristicsdetermined by [facility]. It has not been cleared orapproved by the U.S. Food and Drug Administration but has been givenemergency use authorization. Results should be used in conjunctionwith clinical findings and should not form the sole basis for adiagnosis or treatment decision. Methods: SARS-CoV-2 Multiplex RT-PCRAssayA not detected (negative) test result for this test means that SARS-CoV-2 RNA was not present in the specimen above the limit ofdetection. Laboratory test results should always be considered in thecontext of clinical observations and epidemiological data in making afinal diagnosis and patient management decisions. Results will bereported to government agencies as required. ID Date Data Source [id number] 06/13/2020 09:00:00 AM EST [facility] Name Value Range Interpretation Code Description Data Yolanda rce(s) Supporting Document(s) SARS coronavirus 2 RNA [Presence] in Res piratory specimen by SHASHA with probe detection NEGATIVE [facility] This lab was ordered by Jonatan Toney and reported by [facility]. ID Date Data Source [id number] 06/13/2020 12:00:00 AM EST [facility] Name Value Range Interpretation Code Description Data Yolanda rce(s) Supporting Document(s) Carestart Rapid COVID Antigen Test Negative [facility] This lab was reported by Jonatan [facility] ricarda. Procedure Social History Code Duration Value Status Description Data Source(s ) Alcohol intake 01/05/2021 12:00:00 AM EDT Current drinker of al cohol (finding) completed Current drinker of alcohol (finding) [facility] Tobacco use and exposure 01/05/2021 12:00:00 AM EDT Never used co mpleted Never used [facility] Smoking 01/05/2021 12:00:00 AM EDT Never smoker completed Never s [facility] Smoking 11/26/2020 12:00:00 AM EDT Patient has never smoked co mpleted Patient has never smoked [facility] ([facility]) Alcohol intake 09/02/2020 12:00:00 AM EDT Current drinker of al cohol (finding) completed Current drinker of alcohol (finding) [facility] Alcohol intake 08/05/2020 12:00:00 AM EDT Current drinker of al cohol (finding) completed Current drinker of alcohol (finding) [facility] Alcohol intake 07/08/2020 12:00:00 AM EDT Current drinker of al cohol (finding) completed Current drinker of alcohol (finding) [facility] Alcohol intake 06/19/2020 12:00:00 AM EST Current drinker of al cohol (finding) completed Current drinker of alcohol (finding) [facility] Vital Signs ID Date Data Source UNK Name Value Range Interpretation Code Description Data Source(s) Diastolic blood pressure--sitting 91 mm[Hg] 91 mm[Hg] [facility] ([facility]) Omron, large cuff/Ra Heart rate 101 /min 101 /min [facility] ([facility]) Body weight 227.00 [lb_av] 227.00 [lb_av] MEDEN T ([facility]) Body height 64 [in_i] 64 [in_i] [facility] ([facility]) 5'4" Body mass index (BMI) [Ratio] 39.0 kg/m2 39.0 k g/m2 [facility] ([facility]) Systolic blood pressure--sitting 133 mm[Hg] 133 mm[Hg] [facility] ([facility]) Omron, large cuff/Ra Heart rate 91 /min 91 /min [facility] ([facility]) Systolic blood pressure--sitting 129 mm[Hg] 129 mm[Hg] [facility] ([facility]) Omron large cuff, Ra Body mass index (BMI) [Ratio] 39.3 kg/m2 39.3 k g/m2 [facility] ([facility]) Diastolic blood pressure--sitting 93 mm[Hg] 93 mm[Hg] [facility] ([facility]) Omron large cuff, Ra Body weight 229.00 [lb_av] 229.00 [lb_av] MEDEN T ([facility]) Body height 64 [in_i] 64 [in_i] [facility] 5'4" Body weight 229.00 [lb_av] 229.00 [lb_av] MEDEN T ([facility]) Body height 64 [in_i] 64 [in_i] [facility] ([facility]) 5'4" Body mass index (BMI) [Ratio] 39.3 kg/m2 39.3 k g/m2 [facility] ([facility]) Heart rate 96 /min 96 /min [facility]) Systolic blood pressure--sitting 127 mm[Hg] 127 mm[Hg] [facility] ([facility]) Omron, large cuff/Ra Diastolic blood pressure--sitting 94 mm[Hg] 94 mm[Hg] [facility] ([facility]) Omron, large cuff/Ra Body weight 220.00 [lb_av] 220.00 [lb_av] MEDEN T ([facility]) Body height 64 [in_i] 64 [in_i] [facility] ([facility]) 5'4" Body mass index (BMI) [Ratio] 37.8 kg/m2 37.8 k g/m2 [facility] ([facility]) Heart rate 96 /min 96 /min [facility] ([facility]) Systolic blood pressure--sitting 122 mm[Hg] 122 mm[Hg] [facility] ([facility]) Omron, large cuff/Ra Diastolic blood pressure--sitting 92 mm[Hg] 92 mm[Hg] [facility] ([facility]) Omron, large cuff/Ra ID Date Data Source [id number] 09/02/2020 11:06:14 AM [facility] Name Value Range Interpretation Code Description Data Source(s) WEIGHT RECORDED 226 lb 226 lb [facility] Body height Measured 65.5 in 65.5 in [facility] ID Date Data Source [id number] 08/14/2020 08:35:05 AM [facility] Name Value Range Interpretation Code Description Data Source(s) WEIGHT RECORDED 227.52 lb 227.52 lb [facility] Body height Measured 65.5 in 65.5 in [facility] PREFERRED NAME Marisa Aldana [facility] ID Date Data Source [id number] 08/13/2020 03:53:54 PM [facility] Name Value Range Interpretation Code Description Data Source(s) WEIGHT RECORDED 227.41 lb 227.41 lb [facility] Body height Measured 65.5 in 65.5 in [facility] PREFERRED NAME [facility] PREFERRED NAME [facility] Patient Treatment Plan of Care Planned Activity Planned Date Details Description Data Source (s) Hydroxyzine Hydrochloride 25 MG Oral Tablet 09/24/2020 12:00:00 AM [facility] Ergocalciferol [id number] UNT Oral Capsule 09/02/2020 12:00:00 AM [facility] pantoprazole 40 MG Delayed Release Oral Tablet 08/05/2020 12:00:00 AM [facility] Vit-Fe Fumarate-FA (MULTIVITAMIN ) 27 -0.8 MG TABS 01/04/2018 12:00:00 AM [facility] Magnesium Oxide 400 MG Oral Tablet 12/28/2017 12:00:00 AM [facility] Riboflavin 100 MG Oral Tablet 12/27/2017 12:00:00 AM [facility] Ibuprofen 200 MG Oral Tablet [facility] Ferrous Sulfate (IRON PO) [facility]
--- OUTSIDE RECORDS SUMMARY | 2021-02-25 19:56 | CCD | Summary of Care ---
Author Author [facility] Organization [facility] Address Unknown Phone Unavailable Care Team Providers Care Certified Legal Secretary Specialist Name Role Phone Ld Weston DO PCP Reason for Visit * Reason Comments Nutrition Counseling Encounter Details Care Team Description Date Type Department Lisa Mir, RD, CDN [address] [phone] Moderate obesity (Primary Dx); BMI 38.0-38.9,adult; Nutritional counseling 01/05/2021 Tele[facility] [address] [phone] Allergies Comments Active Allergy Reactions [...] 3 (Ergocalciferol) 1.25 MG capsule by 1 (81397 UT) Oral Capsule mouth every 7 (ERGOCALCIFEROL) [...] Travel End Travel History Travel Start 12/17/2020 [place] 11/30/2020 Date Recorded COVID-19 Exposure Response 12/29/2020 [...] Oxygen Concentration 103.9 kg (229 lb) 01/05/2021 1:35 PM EDT Weight 165.1 cm (5' 5") 01/05/2021 1:35 PM EDT Height 38.11 01/05/2021 1:35 PM EDT Body Mass Index documented in this encounter Progress Notes * Lisa Mir RD, CDN - 01/05/2021 1:30 PM EDT PRE-OPERATIVE NUTRITIONAL ASSESSMENT Date: 01/05/2021 Patient Name: Katya Sam : 1980 Planned Procedure: sleeve versus bypass Provider: Lisa Mir RD, CDN Surgeon: Dr Hendrickson This is a telemedical visit. The patient was informed of the risks including sec urity breech, technological failure, inability to perform a comprehensive physic al exam which could delay or prevent an accurate nutrition assessment, and poten tial complications from treatment decisions rendered over a telemedical platform . The patient understands and consented to the use of tele-health services via [employer] on this date. The patient is aware of co-pays and fees that are associated with this visit. Either the most recent weight on file or a stated weight will b e used for assessment and coding purposes. Diagnosis: No diagnosis found. Patient Active Problem List Diagnosis Date Noted Anemia 08/05/2020 Arthritis 08/05/2020 Recurrent UTI 08/05/2020 Uterine leiomyoma 08/05/2020 Obesity 01/15/2020 Prediabetes 01/15/2020 Cervical radiculitis 05/01/2014 Allergic rhinitis 09/06/2013 Attention deficit disorder 09/06/2013 Hypercholesterolemia 05/26/2012 Asthma 02/25/2011 Migraine headache 02/25/2011 IUD (intrauterine device) in place 02/25/2011 Assessment: Height Current Weight Initial Weight Weight Change Pre-Op Weight Goal Current BMI 1.651 m (5' 5") Weight: 103.9 kg (229 lb) 232 lbs -3lbs 5% or per MD 37.04 Clinical Outcomes Wt Readings from Last 3 Encounters: 01/05/21 103.9 kg (229 lb) 01/05/21 103.9 kg (229 lb) 10/16/20 103 kg (227 lb) Review of labs and medication: Pertinent lab data: Low Vitamin D 16.9 ng/mL, elevated HgbA1C 5.9% (patient is p rediabetic), and low % iron 15% per lab work 08/13/20. No results found for: HGBA1C No results found for: IRON, TIBC, FERRITIN No results found for: VITAMINB1, IAEMIMEF60, [id number] No results found for: LABPROT Allergies: Allergies Allergen Reactions Codeine Other (See Comments) Other Hayfever Current Outpatient Medications Medication Sig Dispense Refill Acetaminophen 325 MG Oral Tablet Take 650 mg by mouth every 6 (six) hours as needed for Pain Albuterol Sulfate HFA 108 (90 Base) MCG/ACT Inhalation Aerosol Solution ( PROVENTIL HFA) Inhale 2 puffs into the lungs every 4 (four) hours as needed for Wheezing Bariatric Fusion Oral Tablet Chewable Chew 1 tablet by Mouth daily buPROPion HCl ER (SR) 150 MG Oral Tablet Extended Release 12 Hour (Wellbu yaniv SR) Take 150 mg by mouth every morning hydrOXYzine HCl 25 MG Oral Tablet (ATARAX) Loratadine 10 MG Oral Tablet (CLARITIN) Take 10 mg by mouth as needed montelukast (SINGULAIR) 10 MG tablet 10 mg nightly Naproxen Sodium 220 MG Oral Capsule (Aleve) Take by mouth Pantoprazole Sodium 40 MG Oral Tablet Delayed Release (Protonix) Take 1 t ablet by mouth daily 30 tablet 11 Pravastatin Sodium 20 MG Oral Tablet (PRAVACHOL) Take 20 mg by mouth gaurang y Pseudoephedrine HCl 30 MG Oral Tablet (SUDAFED) Take 30 mg by mouth every 4 (four) hours as needed for Congestion Sertraline HCl 100 MG Oral Tablet (ZOLOFT) Take 200 mg by mouth daily Vitamin D (Ergocalciferol) 1.25 MG (79637 UT) Oral Capsule (ERGOCALCIFERO L) Take 1 capsule by mouth every 7 (seven) days 4 capsule 3 No current facility-administered medications for this visit. Taking a complete multivitamin: yes Completed vitamin D, recommended taking 5000IU vitamin D daily OTC Patient seen today regarding pre-op visit #3 w/ RD. No recent weight changes. She is getting a hysterectomy this week. She is struggling w/ emotional eating. She sees a counselor weekly. Her coping s trategies are yoga, crafts and playing with her daughter. She is a good amber te for bariatric surgery per her psychological evaluation 08/13/20. 24 Hour Diet Recall: Food log: not consistently Breakfast: Premier protein (coffee flavored) in decaf coffee Snack: cherries or yogurt Lunch: unbreaded chicken nuggets and more veggies Snack: 100 calorie snack pack almonds or string cheese Dinner: varies - protein and veggie, or taco salad Fluids: two cups of coffee Water seltzer water - drinking less or letting is go flat Practicing the behaviors of eating and drinking: yes Emotional eating: yes Receives treatment from a counselor, psychologist, or psychiatrist: yes weekly Exercise: not structured Nutrition Diagnosis: Obesity related to excessive calorie intake as evidenced by Body mass index is 3 8.11 kg/m., limited exercise. Nutrition Intervention: Topics addressed: o Potential for nutrient/vitamin deficiencies/Post-op vitamin protocol o Surgical capacity of stomach/Surgical changes to GI tract o Sugar and Fat restriction to minimize dumping/weight gain o Behavior modification: o Chewing foods to an applesauce consistency o Not drinking 30 minutes before meals, with meals, and to wait for 30 minutes a fter meals o Eating slowly, meals should be 20-30 minutes o Portion sizes o Coping strategies/mindul eating/importance of listening to hunger and fullness cues o Importance of physical activity o Pre-operative healthy meal planning o Consuming 3 meals per day. o Reviewed The Plate Method of Eating. o Avoid high calorie beverages. o Avoid grazing. o Avoid refined starches, high calorie foods, and high fat foods. Strategies used: explanation Patient stage of change: Preparation Barriers to learning: none identified Readiness to Learn: asks questions and motivated to learn Nutrition Handouts: None Patient Goals and Monitoring o Drink at least 64 ounces a day of sugar free, caffeine free, and carbonation f ree fluids. - Aware to avoid carbonation and caffeine after surgery o Adhere to behavior modifications. o Participate in at least 30 minutes of physical activity on most days of the we ek as medically feasible. o Continue a complete multivitamin daily. o Add 5000IU vitamin D daily or as prescribed o Adhere to appropriate meal plan and behavioral program to achieve/maintain pre -op weight goal o Consume 3 meals per day with focus on eating protein and non-starchy vegetable s. May have a protein shake in place of one meal/day o Decrease portion sizes at meal to standard portion by next visit o Do not graze between meals o Continue to work w/ counselor. o Journal consumption. Follow Up: The patient will be followed up in one month/PRN. She does not have nutrition co verage and asked for the visit to be kept short. Advised to call RD with any additional questions or concerns. Additional comments: Attended nutrition education class? Yes 09/08/[address] signature: Lisa Mir RD, CDN documented in this encounter Plan of Treatment Health Maintenance Due Date Last Done Comments MMR Vaccines (1 of - 01/19/1980 Standard series) Varicella Vaccines ( of 01/19/1980 2 - 2-dose childhood series) [...] filedocumented in this encounter Visit Diagnoses Diagnosis Moderate obesity - Primary BMI 38.0-38.9,adult Body Mass Index 38.0-38.9, adult Nutritional counseling documented in this encounter
--- OUTSIDE RECORDS SUMMARY | 2021-02-25 19:56 | CCD | Continuity of Care Document ---
Author Author Katya JOHNSON MD Organization Unknown Address [id number] [place] [address] [place] [address] Phone [phone] Care Team Providers Care Counselor Education Professor Name Role Phone Ld Weston MD AUTM [phone] Kirstin Hendrickson MD AUTM [phone] Problems Active Problems Provider Date Pure hypercholesterolemia Yassine Johnson MD Onset: 2019 Obesity Yassine Johnson MD Onset: 01/15/2020 Prediabetes Yassine Johnson MD Onset: 01/15/2020 Dietary management surveillance Yassine Johnson MD Onset: 01/15/2020 Preoperative cardiovascular examination Yassine Johnson MD Onset: 11/26/2020 Social History Type Date Description Comments Sex Unknown ETOH Use Occasionally consumes alcohol Tobacco Use Start: Unknown Patient has never smoked Smoking Status Reviewed: 11/26/20 Patient has never smoked Exercise Type/Frequency Yoga Daily Exercise Type/Frequency Walks daily 45 min - 1 hour daily Exercise Limitations None Allergies, Adverse Reactions, Alerts Active Allergies Reaction Severity Comments Date Codeine 01/15/2020 Medications Active Medications SIG Qnty Indications Ordering Provide r Date Multi Vitamin Tablets 1 by mouth every day Unknown 11/25/2020 Vitamin D (Ergocalciferol) 1.25mg (56728 Ut) Capsules 1 by mouth every weekly Unknown 11/16 Pravastatin Sodium 20mg Tablets 1 tab by mouth daily at bedtime 90tabs E78.00 Yassine Johnson MD 04/19 Loratadine 10mg Tablets 1 by mouth every day Unknown 01/14/2020 Diclofenac Sodium 75mg Tablets DR 1 by mouth twice a day only as needed Unknown 01/14/2020 Bupropion Hydrochloride ER (SR) 150mg Tablets ER 12HR 1 by mouth daily Unknown 01/14/2020 Dicyclomine HCL 10mg Capsules take one capsule by mouth three times a day as needed Unk nown 01/14/2020 Sertraline HCL 100mg Tablets 2 by mouth every day Unknown 01/14/2020 Hydroxyzine HCL 25mg Tablets 1 by mouth daily at bedtime as needed Unknown 01/12 Montelukast Sodium 10mg Tablets 1 by mouth every day Unknown 01/07/2020 Immunizations Description No Information Available Vital Signs Date Vital Result Comment 11/26/2020 11:13am Weight 227.00 lb Home Weight 227lb home weight Height 64 inches 5'4" BMI (Body Mass Index) 39.0 kg/m2 Heart Rate 101 /min BP Systolic Sitting 133 mmHg Omron, large cuff/Ra BP Diastolic Sitting 91 mmHg Omron, large cuff/R a 08/04/2020 7:53am Weight 229.00 lb Height 64 inches 5'4" BMI (Body Mass Index) 39.3 kg/m2 Heart Rate 91 /min BP Systolic Sitting 129 mmHg Omron large cuff, Ra BP Diastolic Sitting 93 mmHg Omron large cuff, R a Results Test Acquired Date Facility Test Result H/L Range Note Lipid Profile/Cardiac Risk Pro 08/08/2020 [facility] Triglycerides 140 Cholesterol 205 HDL 47 LDL Cholesterol 132.0 Chol/HDL Ratio 4.36 Procedures Date Code Description Status 11/26/2020 40959 Office/Outpatient Established Mo d MDM 30-39 Min Completed 11/26/2020 11772 ECG 12-Lead Completed 08/04/2020 89864 Office/Outpatient Established Lo w MDM 20-29 Min Completed Medical Devices Description No Information Available Encounters Type Date Location Provider Dx Diagnosis Office Visit 11/26/2020 11:00a Main Office Yassine Johnson MD E78.0 0 Pure hypercholesterolemia, unspecified E66.09 Other obesity due to excess calories Z01.810 Encounter for preprocedural cardiovascular examination Z71.3 Dietary counseling and surve illance Office Visit 08/04/2020 8:00a Main Office Yassine Johnson MD E78.0 0 Pure hypercholesterolemia, unspecified E66.09 Other obesity due to excess calories Z71.3 Dietary counseling and surve illance Z68.39 Body mass index [BMI] 39.0-3 9.9, adult Assessments Date Code Description Provider 11/26/2020 E78.00 Pure hypercholesterolemia, unspe cified Yassine Johnson MD 11/26/2020 E66.09 Other obesity due to excess jacqui anika Yassine Johnson MD 11/26/2020 Z01.810 Encounter for preprocedural card iovascular examination Yassine Johnson MD 11/26/2020 Z71.3 Dietary counseling and surveilla yaquelin Johnson MD 08/04/2020 E78.00 Pure hypercholesterolemia, unspe cified Yassine Johnson MD 08/04/2020 E66.09 Other obesity due to excess jacqui anika Yassine Johnson MD 08/04/2020 Z71.3 Dietary counseling and surveilla yaquelin Johnson MD 08/04/2020 Z68.39 Body mass index [BMI] 39.0-39.9, adult Yassine Johnson MD Plan of Treatment 11/26/2020 - aYssine Johnson MD* E78.00 Pure hypercholesterolemia, unspecified * Recommendations:* Continue pravastatin at the current dosage. Consume vegetables (starchy vegetables, non-starchy vegetables, leafy greens), raw fruit, intact whole grains, and legumes. Avoid animal products. Avoid processed foods. Avoid added fats (vegetable oils, margarine, butter, mayonnaise, lard). Avoid partially hydrogenated oils. Avoid refined grains (white rice, white flour and other grain flour products). Avoid refined sweeteners and artificial sweeteners. * E66.09 Other obesity due to excess calories* Recommendations:* Nutrition and exercise advice as above. Awaiting bariatric surgery. * Z01.810 Encounter for preprocedural cardiovascular examination* Recommendations:* Patient has preoperative cardiac clearance to undergo upper GI endoscopy & bariatric surgery. Appropriate perioperative management with regards to obstructive sleep apnea needs to be in place. FYI: I did not order an exercise stress test because this patient does not have any exercise intolerance, chest pain/discomfort, or exertional dyspnea and her ECG was normal. If the patient's bariatric surgeon feels it necessary that the patient have an exercise stress test, then please let me know and I can order one. * Z71.3 Dietary counseling and surveillance * All * Follow up:* No specific arrangements were made for further cardiology follow-up. Functional Status Functional Condition Comment Date Status Independent with all ADL's Activ e Mental Status Description No Information Available Referrals Description No Information Available
[2021-02-25 20:07] VITALS: BP 135/80
--- NOTE | 2021-02-25 20:38 | ECGEPIP ---
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
== END 2021-02-25 20:06 | disposition home or self-care (01) ==
LOC: EDBD 15:49 → M ED 15:49
DX: J06.9 Acute upper respiratory infection, unspecified (principal); G43.909 Migraine, unspecified, not intractable, without status migrainosus; J45.909 Unspecified asthma, uncomplicated; Z88.6 Allergy status to analgesic agent
CPT/HCPCS: 71045; 71275; 80047; 80048; 80076; 83605; 83690; 83880; 84443; 84484; 85025; 87040; 87798; 93005; 93041; 94760; 96361; 96374; 96375; 99285; J1200; J1885; J2765; Q9967

== ENCOUNTER → 2021-05-18 | Outpatient (CLI) | payer OTHER ==
[~2021-05-18] MED LIST changes: +METH-1022 PO
== END ==
LOC: M WHC 14:01
PROVIDERS: ATTEND Student in an Organized Health Care Education/Training Program
DX: Z12.31 Encounter for screening mammogram for malignant neoplasm of breast (principal)

== ENCOUNTER → 2021-06-03 | Outpatient (CLI) | payer OTHER | LOC: M WHC 07:46 | PROVIDERS: ATTEND Student in an Organized Health Care Education/Training Program | DX: N63.0 Unspecified lump in unspecified breast (principal) ==

== ENCOUNTER → 2021-07-14 | Outpatient (CLI) | payer OTHER ==
[~2021-07-14] MED LIST changes: +**SFHN** LIDOCAINE 1% MDV 20ML VIAL ONE; +**SFHN** SODIUM BICARBONATE 8.4% 50MEQ 50ML VIAL ONE
[2021-07-14 12:13] VITALS: BP 136/86
== END ==
LOC: M WHCPRO 08:02
PROVIDERS: ATTEND Surgery
DX: D24.1 Benign neoplasm of right breast (principal); R59.9 Enlarged lymph nodes, unspecified

== ENCOUNTER → 2021-07-14 | Outpatient (CLI) | payer OTHER ==
[~2021-07-14] MED LIST changes: -**SFHN** LIDOCAINE 1% MDV 20ML VIAL ONE; -**SFHN** SODIUM BICARBONATE 8.4% 50MEQ 50ML VIAL ONE
== END ==
LOC: M WHC 07:58
PROVIDERS: ATTEND Surgery
DX: R59.9 Enlarged lymph nodes, unspecified (principal)

== ENCOUNTER → 2025-02-14 | Outpatient (CLI) | payer OTHER ==
[~2025-02-14] MED LIST changes: +ALBU2.5V10 INH; -ALBU83IN INH; +DICY-61 PO; -DICY10CA13 PO; -IBUP-1022 PO; +IBUP600T42 PO; +LORA-1041 PO; -LORA-674 PO; +MONT-5 PO; +ONDA-282 PO; -ONDA4TAB6 PO; -PRAV20TA2 PO; +PRAV20TA78 PO; -SING10TA32 PO
== END ==
LOC: M PLARAD 12:59
PROVIDERS: ATTEND Nurse Practitioner Primary Care
DX: O92.70 Unspecified disorders of lactation (principal); R90.89 Other abnormal findings on diagnostic imaging of central nervous system